=== PATIENT | male | born 1935 | race Caucasian/White ===

== ENCOUNTER → 2016-08-19 | Day surgery (SDC) | payer MEDICARE, BC, OTHER ==
[~2016-08-19] VITALS: Ht 165.1 cm; Wt 94.3 kg
[~2016-08-19] MED LIST: /ALEN70TA; /BACIOPOI TOP; /PANT40TA PO; ACET500C OR; ACETAMINOPHEN 325 MG TAB PO PRN; ACETYLCHOLINE OPHTH SOLN 1% 2ML (MIOCHOL-E) As Ordered ONE; ARTH650T17 PO; ARTHRITIS PAIN REL PO; ASPI81CH PO; ASPI81TA83 PO; ATEN25TA OR; ATEN25TA PO; ATOR1TAB19 PO; AcetaZOLAMIDE 500 MG ER CAP PO ONE; BABY81CH OR; BACT800T; BSS with VANC/TOB/EPI for EYE CASES IR ONE; CALC12502 OR; CALCTAB28 PO; CEFT250T OR; CEFT2ADD IV; CEFUROXIME 1MG/0.1ML INTRACAMERAL INJ As Ordered ONE; CIPRO PO; CLOP75TA2 PO; COLA100C2 OR; CYCLOPENTOLATE 2% OPHTH SOLN 2ML BTL As Ordered ONE; CYCLOPENTOLATE 2% OPHTH SOLN 2ML BTL OD ONE; D5W/0.2% SODIUM CHLORIDE 250 ML IV ONE; FERR325T OR; FURO20TA2 OR; FURO20TA2 PO; GLIP5TAB2 OR; GLIP5TAB2 PO; GLUC1CAP9 PO; GLUCOSAMINE/CHRONDIT; HEALON DUET (HEALON 10MG/ML 0.55ML & HEALON ENDOCOAT 30MG/ML 0.85ML) As Ordered ONE; HYDROXYCHLOROQUINE PO; INSULADS INJ; INSULANT SC; INSUR SC; KETO2AER2 EX; KETOROLAC 0.5% OPHTH SOLN OD ONE; LASI20TA PO; LIDOCAINE 1% SDV 5 ML VIAL As Ordered ONE; LIDOCAINE 4% INJ 5 ML AMP OU ONE; LIDOCAINE W/EPINEPHRINE 1% 20ML VIAL As Ordered ONE; LIPI10TA; LISI-542 PO; LISI5TAB OR; MAGN400C PO; METF500T4 OR; METO10TA2 PO; METO5TAB2 OR; MIDAZOLAM INJ 2 MG/2 ML VIAL (J2250) As Ordered ONE; MOXIFLOXACIN IN BSS 0.25MG/0.25ML INTRACAMERAL INJ (OR EYE ONLY)(J2280) As Ordered ONE; NEUR300C PO; OFLOXACIN 0.3 % (OCUFLOX) OPTH SOL 5ML As Ordered ONE; OFLOXACIN 0.3 % (OCUFLOX) OPTH SOL 5ML OD ONE; OSCAL PLUS D PO; PERC5TAB8; PERC5TAB8 OR; PHENYLEPHRINE 2.5% OPHTH SOL 2ML As Ordered ONE; PHENYLEPHRINE 2.5% OPHTH SOL 2ML OD ONE; PICC LINE FLUSHES IV; PLAQUENIL PO; POTA10CA; POVIDONE-IODINE 5% OPHTH PREP SOL 30ML As Ordered ONE; PRED10TA2 OR; PRED20TA OR; PRED25TA PO; PRED5TAB; PRED5TAB OR; PRED5TAB PO; PREDNISOLINE PO; PROPARACAINE 0.5% OPHTH SOL 15ML OD PRN; RANI300T PO; RANITAB PO; RANITIDINE PO; REFR1DRO8 OP; SENO8.6T5 OR; Silvadene; TRAM50TA2 OR; TRIAMCINOLONE PRES FR 40 MG/ML 1ML(TRIESENCE)(OR EYE ONLY)(J3300 PER 1MG) As Ordered ONE; TRIMETHOBENZAMIDE 300 MG CAP PO PRN; TROPICAMIDE 1% OPHTH SOLN 2ML As Ordered ONE; TROPICAMIDE 1% OPHTH SOLN 2ML OD ONE; VICO5TAB OR; VISI1CAP PO; VISITAB5; VISITAB5 PO; VITA100072 PO; VITA400C PO; VITA400C29 PO; VITA400C35 PO; VITA500C OR; VITA500C3 PO; VITA500T; VITA500T OR; VITAMIN D50000 UNT; VITAMIN D50000 UNT OR; [UNRECOGNIZED DRUG - OTHER] IV; fentaNYL 100 MCG/2 ML INJECTION (J3010) As Ordered ONE; prednisone OR
[2016-08-19 10:00] VITALS: BP 153/67
== END | disposition home or self-care (01) ==
LOC: M SDC 06:33
PROVIDERS: ATTEND Ophthalmology
DX: H26.9 Unspecified cataract (principal); I10 Essential (primary) hypertension; E78.5 Hyperlipidemia, unspecified; K21.9 Gastro-esophageal reflux disease without esophagitis; E11.9 Type 2 diabetes mellitus without complications; Z79.4 Long term (current) use of insulin; G47.30 Sleep apnea, unspecified; I73.9 Peripheral vascular disease, unspecified; Z88.0 Allergy status to penicillin; Z79.899 Other long term (current) drug therapy; Z87.891 Personal history of nicotine dependence
CPT/HCPCS: 66984; 67515; J2250; J2280; J3010; J3300; V2632

== ENCOUNTER → 2016-12-30 | Outpatient (REF) | payer MEDICARE, OTHER ==
[~2016-12-30] MED LIST changes: -ACETAMINOPHEN 325 MG TAB PO PRN; -ACETYLCHOLINE OPHTH SOLN 1% 2ML (MIOCHOL-E) As Ordered ONE; -AcetaZOLAMIDE 500 MG ER CAP PO ONE; -BSS with VANC/TOB/EPI for EYE CASES IR ONE; -CEFUROXIME 1MG/0.1ML INTRACAMERAL INJ As Ordered ONE; -CYCLOPENTOLATE 2% OPHTH SOLN 2ML BTL As Ordered ONE; -CYCLOPENTOLATE 2% OPHTH SOLN 2ML BTL OD ONE; -D5W/0.2% SODIUM CHLORIDE 250 ML IV ONE; -HEALON DUET (HEALON 10MG/ML 0.55ML & HEALON ENDOCOAT 30MG/ML 0.85ML) As Ordered ONE; -KETOROLAC 0.5% OPHTH SOLN OD ONE; -LIDOCAINE 1% SDV 5 ML VIAL As Ordered ONE; -LIDOCAINE 4% INJ 5 ML AMP OU ONE; -LIDOCAINE W/EPINEPHRINE 1% 20ML VIAL As Ordered ONE; -MIDAZOLAM INJ 2 MG/2 ML VIAL (J2250) As Ordered ONE; -MOXIFLOXACIN IN BSS 0.25MG/0.25ML INTRACAMERAL INJ (OR EYE ONLY)(J2280) As Ordered ONE; -OFLOXACIN 0.3 % (OCUFLOX) OPTH SOL 5ML As Ordered ONE; -OFLOXACIN 0.3 % (OCUFLOX) OPTH SOL 5ML OD ONE; -PHENYLEPHRINE 2.5% OPHTH SOL 2ML As Ordered ONE; -PHENYLEPHRINE 2.5% OPHTH SOL 2ML OD ONE; -POVIDONE-IODINE 5% OPHTH PREP SOL 30ML As Ordered ONE; -PROPARACAINE 0.5% OPHTH SOL 15ML OD PRN; -TRIAMCINOLONE PRES FR 40 MG/ML 1ML(TRIESENCE)(OR EYE ONLY)(J3300 PER 1MG) As Ordered ONE; -TRIMETHOBENZAMIDE 300 MG CAP PO PRN; -TROPICAMIDE 1% OPHTH SOLN 2ML As Ordered ONE; -TROPICAMIDE 1% OPHTH SOLN 2ML OD ONE; +VITA-110 PO; -VITA400C29 PO; -fentaNYL 100 MCG/2 ML INJECTION (J3010) As Ordered ONE
== END ==
LOC: M LAB REF 17:47
PROVIDERS: ATTEND Surgery
DX: D04.62 Carcinoma in situ of skin of left upper limb, including shoulder (principal); D48.5 Neoplasm of uncertain behavior of skin

== ENCOUNTER 2017-12-03 16:59 | Inpatient (IN) | payer MEDICARE, BC, OTHER ==
[2017-12-03 16:21] LABS: BASO # 0.1 10^3/uL (0.0-0.2); BASO % 0.3 % (0.0-1.0); EOS % 0.2 % (0.0-3.0); HEMOGLOBIN 12.6 g/dl (13.5-17.5); IMMATURE GRANULOCYTE % 1.1 % (0-3.0); LYMPH # 0.7 10^3/uL (1.5-4.5); LYMPH % 3.4 % (24.0-44.0); MEAN CORPUSCULAR HEMOGLOBIN 32.3 pg (27.0-33.0); MEAN CORPUSCULAR HGB CONC 33.2 g/dl (32.0-36.5); MEAN CORPUSCULAR VOLUME 97.4 fl (80.0-96.0); MONO # 1.7 10^3/uL (0.0-0.8); MONO % 8.4 % (0.0-5.0); NEUTROPHILS % 86.6 % (36.0-66.0); PLATELET COUNT, AUTOMATED 211 10^3/uL (150-450); RED CELL DISTRIBUTION WIDTH 14.5 % (11.5-14.5); WHITE BLOOD COUNT 19.7 10^3/uL (4.0-10.0)
[2017-12-03 16:25] LABS: INR 0.92; PARTIAL THROMBOPLASTIN TIME 27.5 SECONDS (25.4-37.6); PROTHROMBIN TIME 12.5 SECONDS (12.1-14.4)
[2017-12-03 16:27] LABS: ABG BASE EXCESS -1.1 (-2.0-2.0); ABG HCO3 23.3 MEQ/L (22.0-26.0); ABG O2 SATURATION 98.8 % (95.0-99.0); ABG PARTIAL PRESSURE CO2 37.7 mmHg (35.0-45.0); ABG PARTIAL PRESSURE O2 134.9 mmHg (75.0-100.0); ABG STANDARD HCO3 23.6 MEQ/L (22.0-26.0); ABG TOTAL CO2 24.4 MEQ/L (23.0-31.0); ABG pH (ARTERIAL) 7.408 UNITS (7.350-7.450)
[2017-12-03] MEDS: HYDROCORTISONE 100 MG/2 ML VIAL (J1720) IV (16:38)
[2017-12-03] MEDS: NS 1,000 ML IV ×4 (16:39→20:54)
[2017-12-03 16:40] LABS: ALBUMIN/GLOBULIN RATIO 1.25 (1.00-1.93); ALKALINE PHOSPHATASE 59 U/L (45-117); ALT/SGPT 31 U/L (12-78); AMYLASE 63 U/L (25-115); ANION GAP 10 MEQ/L (8-16); AST/SGOT 15 U/L (7-37); BILIRUBIN,DIRECT 0.2 MG/DL (0.0-0.2); BILIRUBIN,TOTAL 0.6 MG/DL (0.2-1.0); BLOOD UREA NITROGEN 33 MG/DL (7-18); C REACTIVE PROTEIN QUANTITATIV 3.66 MG/DL (0.00-0.30); CALCIUM LEVEL 9.7 MG/DL (8.8-10.2); CARBON DIOXIDE LEVEL 26 MEQ/L (21-32); CHLORIDE LEVEL 100 MEQ/L (98-107); CPK CREATINE PHOSPHOKINASE 90 U/L (39-308); CREATININE FOR GFR 1.83 MG/DL (0.70-1.30); GLOMERULAR FILTRATION RATE 37.8 (>35); GLUCOSE, FASTING 181 MG/DL (70-100); LIPASE 251 U/L (73-393); MB/CK RELATIVE INDEX 1.89 (< OR =4); POTASSIUM SERUM 3.9 MEQ/L (3.5-5.1); SODIUM LEVEL 136 MEQ/L (136-145); TOTAL PROTEIN 7.2 GM/DL (6.4-8.2); TROPONIN I < 0.02 NG/ML (< 0.10)
[2017-12-03] MEDS: cefTRIAXone SOD 2 GM in D5W MINI-BAG PLUS 50 ML IV (17:51)
[2017-12-03 18:34] LABS: AMORPHOUS SEDIMENT RFX SMALL (NEGATIVE); KETONE, URINE AUTO RFX NEGATIVE (NEGATIVE); MUCUS, URINE RFX SMALL (NEGATIVE); NITRITE, URINE AUTO RFX NEGATIVE (NEGATIVE); RBC, URINE AUTO RFX 4 /HPF (0-3); SPECIFIC GRAVITY UR AUTO RFX 1.013 (1.002-1.035); SQUAM EPITHELIAL CELL UR AURFX 0 /HPF (0-6)
[2017-12-03 18:38] LABS: LEUKOCYTE ESTERASE UR AUTO RFX 3+ (NEGATIVE); WBC, URINE AUTO RFX 101 /HPF (0-3)
[2017-12-03] MEDS: GABAPENTIN 300 MG CAP PO (21:00)
[2017-12-03] MEDS: ATORVASTATIN 10 MG TAB PO (21:00)
[2017-12-03] MEDS: CLOPIDOGREL 75 MG TAB PO (21:00)
[2017-12-03] MEDS: ASPIRIN 81 MG ENTERIC TAB PO (21:00)
[2017-12-03] MEDS: MAGNESIUM OXIDE 400 MG TAB (MAG-OX) PO (21:00)
[2017-12-03] MEDS ORDERED: DEXTROSE 50% 50 ML SYRINGE IV (21:15)
[2017-12-03] MEDS ORDERED: GLUCOSE 4 GM CHEW TABLET PO (21:15)
[2017-12-03] MEDS ORDERED: GLUCAGON FOR INJ 1 MG VIAL (J1610) SC (21:15)
[2017-12-03] MEDS: HEPARIN SOD (PORCINE) 5000 UNITS/ML VIAL SC (22:00)
[2017-12-04] MEDS: HYDROCORTISONE 100 MG/2 ML VIAL (J1720) IV ×3 (05:01→17:37)
[2017-12-04 06:10] LABS: MEAN CORPUSCULAR HEMOGLOBIN 32.2 pg (27.0-33.0); MEAN CORPUSCULAR HGB CONC 32.3 g/dl (32.0-36.5); MEAN CORPUSCULAR VOLUME 99.7 fl (80.0-96.0); PLATELET COUNT, AUTOMATED 164 10^3/uL (150-450); RED BLOOD COUNT 3.11 10^6/uL (4.30-6.10); RED CELL DISTRIBUTION WIDTH 14.6 % (11.5-14.5); WHITE BLOOD COUNT 20.5 10^3/uL (4.0-10.0)
[2017-12-04 06:39] LABS: ANION GAP 6 MEQ/L (8-16); BLOOD UREA NITROGEN 33 MG/DL (7-18); CALCIUM LEVEL 8.2 MG/DL (8.8-10.2); CARBON DIOXIDE LEVEL 24 MEQ/L (21-32); CHLORIDE LEVEL 110 MEQ/L (98-107); CREATININE FOR GFR 1.57 MG/DL (0.70-1.30); GLOMERULAR FILTRATION RATE 45.1 (>35); GLUCOSE, FASTING 126 MG/DL (70-100); POTASSIUM SERUM 4.7 MEQ/L (3.5-5.1); SODIUM LEVEL 140 MEQ/L (136-145)
[2017-12-04] MEDS: HEPARIN SOD (PORCINE) 5000 UNITS/ML VIAL SC ×3 (06:47→20:35)
[2017-12-04] MEDS: NS 1,000 ML IV ×2 (06:54→16:03)
[2017-12-04] MEDS: LEVEMIR (INSULIN DETEMIR) 1 UNITS/0.01ML SC (09:09)
[2017-12-04] MEDS: HumaLOG INSULIN (NovoLOG) PER UNIT SC ×3 (09:09→17:30)
[2017-12-04] MEDS: FAMOTIDINE 20 MG TAB PO ×2 (09:10→20:35)
[2017-12-04] MEDS: GABAPENTIN 300 MG CAP PO ×3 (09:10→20:35)
[2017-12-04] MEDS: OCUVITE 1 TAB PO (09:10)
[2017-12-04] MEDS: ASCORBIC ACID 500 MG TAB PO (09:10)
[2017-12-04] MEDS: ACETAMINOPHEN TAB 650MG DOSE (2X325MG) PO ×2 (09:10→20:36)
[2017-12-04] MEDS: CYANOCOBALAMIN 500 MCG TAB PO (09:10)
[2017-12-04] MEDS: VITAMIN E 400 INTERNATIONAL UNITS CAP PO (09:10)
[2017-12-04 10:58] LABS: LACTIC ACID SEPSIS PROTOCOL 1.8 MMOL/L (0.4-2.0)
[2017-12-04 12:08] LABS: BEDSIDE GLUCOSE 135 MG/DL (83-110)
[2017-12-04 16:53] LABS: BEDSIDE GLUCOSE 195 MG/DL (83-110)
[2017-12-04] MEDS: cefTRIAXone SOD 1 GM in D5W MINI-BAG PLUS 50 ML IV (17:37)
[2017-12-04] MEDS: CLOPIDOGREL 75 MG TAB PO (20:35)
[2017-12-04] MEDS: ASPIRIN 81 MG ENTERIC TAB PO (20:35)
[2017-12-04] MEDS: ATORVASTATIN 10 MG TAB PO (20:36)
[2017-12-04] MEDS: MAGNESIUM OXIDE 400 MG TAB (MAG-OX) PO (20:36)
[2017-12-05] MEDS: HYDROCORTISONE 100 MG/2 ML VIAL (J1720) IV ×3 (00:19→17:03)
[2017-12-05 05:56] LABS: HEMATOCRIT 28.7 % (42.0-52.0); HEMOGLOBIN 9.4 g/dl (13.5-17.5); MEAN CORPUSCULAR HEMOGLOBIN 32.3 pg (27.0-33.0); MEAN CORPUSCULAR HGB CONC 32.8 g/dl (32.0-36.5); MEAN CORPUSCULAR VOLUME 98.6 fl (80.0-96.0); PLATELET COUNT, AUTOMATED 152 10^3/uL (150-450); RED BLOOD COUNT 2.91 10^6/uL (4.30-6.10); RED CELL DISTRIBUTION WIDTH 14.6 % (11.5-14.5); WHITE BLOOD COUNT 15.7 10^3/uL (4.0-10.0)
[2017-12-05] MEDS: HEPARIN SOD (PORCINE) 5000 UNITS/ML VIAL SC ×3 (05:58→21:53)
[2017-12-05 06:38] LABS: ANION GAP 7 MEQ/L (8-16); BLOOD UREA NITROGEN 36 MG/DL (7-18); CALCIUM LEVEL 7.8 MG/DL (8.8-10.2); CARBON DIOXIDE LEVEL 22 MEQ/L (21-32); CHLORIDE LEVEL 111 MEQ/L (98-107); GLOMERULAR FILTRATION RATE 56.1 (>35); GLUCOSE, FASTING 207 MG/DL (70-100); POTASSIUM SERUM 4.2 MEQ/L (3.5-5.1); SODIUM LEVEL 140 MEQ/L (136-145)
[2017-12-05] MEDS: VITAMIN E 400 INTERNATIONAL UNITS CAP PO (09:14)
[2017-12-05] MEDS: OCUVITE 1 TAB PO (09:14)
[2017-12-05] MEDS: HumaLOG INSULIN (NovoLOG) PER UNIT SC ×3 (09:14→17:04)
[2017-12-05] MEDS: LEVEMIR (INSULIN DETEMIR) 1 UNITS/0.01ML SC (09:14)
[2017-12-05] MEDS: FAMOTIDINE 20 MG TAB PO ×2 (09:15→21:52)
[2017-12-05] MEDS: CYANOCOBALAMIN 500 MCG TAB PO (09:15)
[2017-12-05] MEDS: ASCORBIC ACID 500 MG TAB PO (09:15)
[2017-12-05] MEDS: GABAPENTIN 300 MG CAP PO ×3 (09:15→21:52)
[2017-12-05 11:53] LABS: BEDSIDE GLUCOSE 245 MG/DL (83-110)
[2017-12-05] MEDS: INFLUENZA VIRUS VACCINE HIGH DOSE 0.5 ML SYRINGE (90662) IM (12:00)
[2017-12-05 16:51] LABS: BEDSIDE GLUCOSE 291 MG/DL (83-110)
[2017-12-05] MEDS: cefTRIAXone SOD 1 GM in D5W MINI-BAG PLUS 50 ML IV (17:04)
[2017-12-05] MEDS: ASPIRIN 81 MG ENTERIC TAB PO (21:51)
[2017-12-05] MEDS: ATORVASTATIN 10 MG TAB PO (21:51)
[2017-12-05] MEDS: ACETAMINOPHEN TAB 650MG DOSE (2X325MG) PO (21:51)
[2017-12-05] MEDS: MAGNESIUM OXIDE 400 MG TAB (MAG-OX) PO (21:52)
[2017-12-05] MEDS: CLOPIDOGREL 75 MG TAB PO (21:52)
[2017-12-06] MEDS: HYDROCORTISONE 100 MG/2 ML VIAL (J1720) IV ×3 (01:10→16:30)
[2017-12-06] MEDS: HEPARIN SOD (PORCINE) 5000 UNITS/ML VIAL SC ×3 (05:24→22:14)
[2017-12-06 07:16] LABS: BEDSIDE GLUCOSE 239 MG/DL (83-110)
[2017-12-06 07:24] LABS: HEMATOCRIT 29.8 % (42.0-52.0); HEMOGLOBIN 9.8 g/dl (13.5-17.5); MEAN CORPUSCULAR HEMOGLOBIN 32.1 pg (27.0-33.0); MEAN CORPUSCULAR HGB CONC 32.9 g/dl (32.0-36.5); MEAN CORPUSCULAR VOLUME 97.7 fl (80.0-96.0); PLATELET COUNT, AUTOMATED 162 10^3/uL (150-450); RED BLOOD COUNT 3.05 10^6/uL (4.30-6.10); RED CELL DISTRIBUTION WIDTH 14.6 % (11.5-14.5)
[2017-12-06 07:47] LABS: ANION GAP 11 MEQ/L (8-16); BLOOD UREA NITROGEN 35 MG/DL (7-18); CALCIUM LEVEL 8.2 MG/DL (8.8-10.2); CARBON DIOXIDE LEVEL 20 MEQ/L (21-32); CHLORIDE LEVEL 107 MEQ/L (98-107); CREATININE FOR GFR 1.19 MG/DL (0.70-1.30); GLOMERULAR FILTRATION RATE > 60.0 (>35); GLUCOSE, FASTING 226 MG/DL (70-100); POTASSIUM SERUM 4.1 MEQ/L (3.5-5.1); SODIUM LEVEL 138 MEQ/L (136-145)
[2017-12-06] MEDS: HumaLOG INSULIN (NovoLOG) PER UNIT SC ×3 (09:11→18:11)
[2017-12-06] MEDS: GABAPENTIN 300 MG CAP PO ×3 (09:12→22:13)
[2017-12-06] MEDS: LEVEMIR (INSULIN DETEMIR) 1 UNITS/0.01ML SC (09:12)
[2017-12-06] MEDS: OCUVITE 1 TAB PO (09:12)
[2017-12-06] MEDS: ASCORBIC ACID 500 MG TAB PO (09:12)
[2017-12-06] MEDS: VITAMIN E 400 INTERNATIONAL UNITS CAP PO (09:12)
[2017-12-06] MEDS: FAMOTIDINE 20 MG TAB PO ×2 (09:13→22:13)
[2017-12-06] MEDS: CYANOCOBALAMIN 500 MCG TAB PO (09:13)
[2017-12-06 11:35] LABS: BEDSIDE GLUCOSE 246 MG/DL (83-110)
[2017-12-06 16:30] LABS: BEDSIDE GLUCOSE 230 MG/DL (83-110)
[2017-12-06] MEDS: cefTRIAXone SOD 1 GM in D5W MINI-BAG PLUS 50 ML IV (18:11)
[2017-12-06 20:00] LABS: BEDSIDE GLUCOSE 278 MG/DL (83-110)
[2017-12-06] MEDS: ASPIRIN 81 MG ENTERIC TAB PO (22:13)
[2017-12-06] MEDS: MAGNESIUM OXIDE 400 MG TAB (MAG-OX) PO (22:13)
[2017-12-06] MEDS: ACETAMINOPHEN TAB 650MG DOSE (2X325MG) PO (22:13)
[2017-12-06] MEDS: predniSONE 2.5 MG TAB PO (22:13)
[2017-12-06] MEDS: CLOPIDOGREL 75 MG TAB PO (22:14)
[2017-12-06] MEDS: ATORVASTATIN 10 MG TAB PO (22:14)
[2017-12-07 05:32] LABS: BEDSIDE GLUCOSE 220 MG/DL (83-110)
[2017-12-07] MEDS: HEPARIN SOD (PORCINE) 5000 UNITS/ML VIAL SC (05:38)
[2017-12-07 07:10] LABS: HEMATOCRIT 29.8 % (42.0-52.0); HEMOGLOBIN 10.1 g/dl (13.5-17.5); MEAN CORPUSCULAR HEMOGLOBIN 32.5 pg (27.0-33.0); MEAN CORPUSCULAR HGB CONC 33.9 g/dl (32.0-36.5); MEAN CORPUSCULAR VOLUME 95.8 fl (80.0-96.0); PLATELET COUNT, AUTOMATED 176 10^3/uL (150-450); RED BLOOD COUNT 3.11 10^6/uL (4.30-6.10); RED CELL DISTRIBUTION WIDTH 14.4 % (11.5-14.5); WHITE BLOOD COUNT 9.3 10^3/uL (4.0-10.0)
[2017-12-07 08:05] LABS: ANION GAP 14 MEQ/L (8-16); BLOOD UREA NITROGEN 32 MG/DL (7-18); C REACTIVE PROTEIN QUANTITATIV 5.05 MG/DL (0.00-0.30); CALCIUM LEVEL 7.9 MG/DL (8.8-10.2); CARBON DIOXIDE LEVEL 20 MEQ/L (21-32); CHLORIDE LEVEL 107 MEQ/L (98-107); CREATININE FOR GFR 1.12 MG/DL (0.70-1.30); GLOMERULAR FILTRATION RATE > 60.0 (>35); GLUCOSE, FASTING 191 MG/DL (70-100); SODIUM LEVEL 141 MEQ/L (136-145)
[2017-12-07] MEDS: LEVEMIR (INSULIN DETEMIR) 1 UNITS/0.01ML SC (09:09)
[2017-12-07] MEDS: HumaLOG INSULIN (NovoLOG) PER UNIT SC ×2 (09:10→12:16)
[2017-12-07] MEDS: FAMOTIDINE 20 MG TAB PO (09:11)
[2017-12-07] MEDS: predniSONE 2.5 MG TAB PO (09:11)
[2017-12-07] MEDS: ASCORBIC ACID 500 MG TAB PO (09:11)
[2017-12-07] MEDS: OCUVITE 1 TAB PO (09:11)
[2017-12-07] MEDS: GABAPENTIN 300 MG CAP PO ×2 (09:11→12:15)
[2017-12-07] MEDS: CYANOCOBALAMIN 500 MCG TAB PO (09:11)
[2017-12-07] MEDS: VITAMIN E 400 INTERNATIONAL UNITS CAP PO (09:11)
== END 2017-12-07 12:14 | disposition home or self-care (01) | DRG 872 ==
LOC: M PCU 12-04 02:07 → M MS4PR 12-05 17:45 → M ED 16:59 → M ED INP 20:54
DX: A41.9 Sepsis, unspecified organism (principal); N39.0 Urinary tract infection, site not specified; N17.9 Acute kidney failure, unspecified; R65.20 Severe sepsis without septic shock; I10 Essential (primary) hypertension; G47.33 Obstructive sleep apnea (adult) (pediatric); E78.5 Hyperlipidemia, unspecified; Z66 Do not resuscitate; E11.51 Type 2 diabetes mellitus with diabetic peripheral angiopathy without gangrene; M06.9 Rheumatoid arthritis, unspecified; Z79.899 Other long term (current) drug therapy; Z79.82 Long term (current) use of aspirin; Z79.52 Long term (current) use of systemic steroids; Z88.0 Allergy status to penicillin; Z88.1 Allergy status to other antibiotic agents; K21.9 Gastro-esophageal reflux disease without esophagitis; Z79.4 Long term (current) use of insulin

== ENCOUNTER 2017-12-27 09:58 | Inpatient (IN) | payer MEDICARE, BC, OTHER ==
[2017-12-27] MEDS: VITAMIN E 400 INTERNATIONAL UNITS CAP PO (09:00)
[2017-12-27] MEDS: ACETAMINOPHEN TAB 650MG DOSE (2X325MG) PO ×2 (10:26→14:50)
[2017-12-27] MEDS: NS 1,000 ML IV ×4 (10:30→21:35)
[2017-12-27 11:05] LABS: BASO % 0.2 % (0.0-1.0); EOS # 0.1 10^3/uL (0.0-0.50); EOS % 0.5 % (0.0-3.0); HEMATOCRIT 35.4 % (42.0-52.0); HEMOGLOBIN 11.5 g/dl (13.5-17.5); IMMATURE GRANULOCYTE % 0.9 % (0-3.0); LYMPH % 6.7 % (24.0-44.0); MEAN CORPUSCULAR HEMOGLOBIN 31.7 pg (27.0-33.0); MEAN CORPUSCULAR HGB CONC 32.5 g/dl (32.0-36.5); MEAN CORPUSCULAR VOLUME 97.5 fl (80.0-96.0); MONO # 1.7 10^3/uL (0.0-0.8); MONO % 11.5 % (0.0-5.0); NEUTROPHILS % 80.2 % (36.0-66.0); PLATELET COUNT, AUTOMATED 207 10^3/uL (150-450); RED BLOOD COUNT 3.63 10^6/uL (4.30-6.10); RED CELL DISTRIBUTION WIDTH 14.7 % (11.5-14.5); WHITE BLOOD COUNT 14.9 10^3/uL (4.0-10.0)
[2017-12-27 11:21] LABS: INR 1.06; PROTHROMBIN TIME 13.9 SECONDS (12.1-14.4)
[2017-12-27 11:22] LABS: PARTIAL THROMBOPLASTIN TIME 30.3 SECONDS (25.4-37.6)
[2017-12-27 11:35] LABS: ALBUMIN 3.4 GM/DL (3.2-5.2); ALBUMIN/GLOBULIN RATIO 0.97 (1.00-1.93); ALKALINE PHOSPHATASE 60 U/L (45-117); ALT/SGPT 26 U/L (12-78); ANION GAP 9 MEQ/L (8-16); AST/SGOT 16 U/L (7-37); BILIRUBIN,DIRECT 0.2 MG/DL (0.0-0.2); BILIRUBIN,TOTAL 0.6 MG/DL (0.2-1.0); BLOOD UREA NITROGEN 36 MG/DL (7-18); CARBON DIOXIDE LEVEL 27 MEQ/L (21-32); CHLORIDE LEVEL 101 MEQ/L (98-107); CREATININE FOR GFR 1.77 MG/DL (0.70-1.30); GLOMERULAR FILTRATION RATE 39.3 (>35); GLUCOSE, FASTING 167 MG/DL (70-100); POTASSIUM SERUM 4.6 MEQ/L (3.5-5.1); SODIUM LEVEL 137 MEQ/L (136-145); TOTAL PROTEIN 6.9 GM/DL (6.4-8.2)
[2017-12-27 11:40] LABS: LACTIC ACID SEPSIS PROTOCOL 2.1 MMOL/L (0.4-2.0)
[2017-12-27] MEDS: NS IV (12:01)
[2017-12-27] MEDS: DILUENT IV (12:01)
[2017-12-27] MEDS: MORPHINE 2 MG/ML 1ML SYRINGE (J2270) IV (12:02)
[2017-12-27 12:54] LABS: AMORPHOUS SEDIMENT SMALL (NEGATIVE); APPEARANCE, URINE CLOUDY (CLEAR); BACTERIA, URINE AUTO 2+ (NEGATIVE); BILIRUBIN, URINE AUTO NEGATIVE (NEGATIVE); BLOOD, URINE BLOOD 1+ (NEGATIVE); COLOR, URINE YELLOW (YELLOW); GLUCOSE, URINE (UA) AUTO NEGATIVE (NEGATIVE); KETONE, URINE AUTO NEGATIVE (NEGATIVE); LEUKOCYTE ESTERASE, URINE AUTO 3+ (NEGATIVE); MUCUS, URINE SMALL (NEGATIVE); NITRITE, URINE AUTO POSITIVE (NEGATIVE); PROTEIN, URINE AUTO 1+ mg/dL (NEGATIVE); RBC, URINE AUTO 5 /HPF (0-3); SPECIFIC GRAVITY URINE AUTO 1.013 (1.002-1.035); SQUAMOUS EPITHELIAL CELL UR AU 0 /HPF (0-6); UROBILINOGEN, URINE AUTO 0.2 mg/dL (0.0-2.0); WBC, URINE AUTO TNTC /HPF (0-3)
[2017-12-27] MEDS ORDERED: ONDANSETRON 4MG/2ML VIAL (J2405) IV (13:15)
[2017-12-27] MEDS ORDERED: BISACODYL 5 MG TAB PO (13:15)
[2017-12-27] MEDS: LevoFLOXacin IV 500 MG in APPROPRIATE DILUENT 1 EA IV (13:57)
[2017-12-27] MEDS ORDERED: GLUCOSE 4 GM CHEW TABLET PO (14:15)
[2017-12-27] MEDS ORDERED: DEXTROSE 50% 50 ML SYRINGE IV (14:15)
[2017-12-27] MEDS ORDERED: GLUCAGON FOR INJ 1 MG VIAL (J1610) SC (14:15)
[2017-12-27 14:44] LABS: CPK CREATINE PHOSPHOKINASE 97 U/L (39-308); MB/CK RELATIVE INDEX 1.65 (< OR =4); TROPONIN I < 0.02 NG/ML (< 0.10)
[2017-12-27] MEDS: OCUVITE 1 TAB PO (14:50)
[2017-12-27] MEDS: CYANOCOBALAMIN 500 MCG TAB PO (14:51)
[2017-12-27] MEDS: ATENOLOL 25 MG TAB PO (14:51)
[2017-12-27] MEDS: HYDROCORTISONE 100 MG/2 ML VIAL (J1720) IV ×2 (14:52→21:35)
[2017-12-27 16:25] LABS: BEDSIDE GLUCOSE 188 MG/DL (83-110)
[2017-12-27] MEDS: ASCORBIC ACID 250 MG TAB PO ×2 (17:30→21:34)
[2017-12-27] MEDS: HumaLOG INSULIN (NovoLOG) PER UNIT SC ×2 (17:31→21:00)
[2017-12-27] MEDS: DEXTRAN/HYPROMELLOSE OPHTH SOLN 15 ML(GENTEAL TEARS) OU ×2 (17:31→21:33)
[2017-12-27] MEDS: LACTOBACILLUS ACIDOPHILUS CAP (BACID) PO (17:31)
[2017-12-27 18:50] LABS: ANION GAP 8 MEQ/L (8-16); BLOOD UREA NITROGEN 36 MG/DL (7-18); CALCIUM LEVEL 8.4 MG/DL (8.8-10.2); CARBON DIOXIDE LEVEL 23 MEQ/L (21-32); CHLORIDE LEVEL 107 MEQ/L (98-107); CREATININE FOR GFR 1.68 MG/DL (0.70-1.30); GLOMERULAR FILTRATION RATE 41.7 (>35); GLUCOSE, FASTING 228 MG/DL (70-100); POTASSIUM SERUM 4.8 MEQ/L (3.5-5.1); SODIUM LEVEL 138 MEQ/L (136-145)
[2017-12-27 20:23] LABS: BEDSIDE GLUCOSE 238 MG/DL (83-110)
[2017-12-27] MEDS: predniSONE 2.5 MG TAB PO (21:33)
[2017-12-27] MEDS: LEVEMIR (INSULIN DETEMIR) 1 UNITS/0.01ML SC (21:33)
[2017-12-27] MEDS: MAGNESIUM OXIDE 400 MG TAB (MAG-OX) PO (21:34)
[2017-12-27] MEDS: CLOPIDOGREL 75 MG TAB PO (21:34)
[2017-12-27] MEDS: ATORVASTATIN 10 MG TAB PO (21:34)
[2017-12-27] MEDS: ASPIRIN 81 MG ENTERIC TAB PO (21:34)
[2017-12-28] MEDS: HYDROCORTISONE 100 MG/2 ML VIAL (J1720) IV ×3 (05:44→22:02)
[2017-12-28 06:31] LABS: HEMATOCRIT 27.4 % (42.0-52.0); MEAN CORPUSCULAR HEMOGLOBIN 32.1 pg (27.0-33.0); MEAN CORPUSCULAR HGB CONC 32.8 g/dl (32.0-36.5); MEAN CORPUSCULAR VOLUME 97.9 fl (80.0-96.0); PLATELET COUNT, AUTOMATED 170 10^3/uL (150-450); RED CELL DISTRIBUTION WIDTH 14.7 % (11.5-14.5); RETIC HEMOGLOBIN EQUIVALENT 33.1 pg (24-36); RETICULOCYTE # 47.3 10^9/L (17-77); RETICULOCYTE % 1.7 % (0.5-1.5); WHITE BLOOD COUNT 11.6 10^3/uL (4.0-10.0)
[2017-12-28 06:43] LABS: REASON FOR REVIEW RBC MORPHOLOGY; SLIDE REVIEW Report; SOURCE PERIPHERAL SMEAR
[2017-12-28 06:46] LABS: ESTIMATED AVERAGE GLUCOSE 166 MG/DL (60-110); HEMOGLOBIN A1c 7.4 %
[2017-12-28 07:46] LABS: ANION GAP 7 MEQ/L (8-16); BLOOD UREA NITROGEN 32 MG/DL (7-18); CALCIUM LEVEL 8.1 MG/DL (8.8-10.2); CARBON DIOXIDE LEVEL 25 MEQ/L (21-32); CHLORIDE LEVEL 107 MEQ/L (98-107); CHOLESTEROL LEVEL 87 MG/DL (<200); CHOLESTEROL RISK RATIO 2.175 (<5); CREATININE FOR GFR 1.43 MG/DL (0.70-1.30); FERRITIN 220 NG/ML (26-388); FREE THYROXINE INDEX 1.6 % (1.4-3.8); GLOMERULAR FILTRATION RATE 50.3 (>35); GLUCOSE, FASTING 203 MG/DL (70-100); HDL CHOLESTEROL 40 MG/DL (>40); IRON (FE) 21 UG/DL (65-175); LDL CHOLESTEROL 27 MG/DL (<100); NON-HDL-C 47 MG/DL; PERCENT SATURATION 10.6 % (19.7-50.0); POTASSIUM SERUM 4.5 MEQ/L (3.5-5.1); PSA SCREENING 1.07 NG/ML (< 4.0); SODIUM LEVEL 139 MEQ/L (136-145); T UPTAKE 37 % (33-40); THYROID STIMULATING HORMONE 0.336 uIU/ML (0.358-3.740); THYROXINE (T4) 4.2 UG/DL (4.5-12.0); TOTAL IRON BINDING CAPACITY 198 UG/DL (250-450); TOTAL PROTEIN 5.5 GM/DL (6.4-8.2); TRIGLYCERIDES LEVEL 98 MG/DL (<150)
[2017-12-28] MEDS: PREVNAR 13 VACCINE SYRINGE (CPT CODE:90670) IM (09:00)
[2017-12-28] MEDS: FLUBLOK(EGG FREE)(QUAD)INFLUENZA VACC 0.5ML SYRINGE (90682)18YRS&OLDER IM (09:00)
[2017-12-28] MEDS: ASCORBIC ACID 250 MG TAB PO ×3 (09:56→22:01)
[2017-12-28] MEDS: CYANOCOBALAMIN 500 MCG TAB PO (09:56)
[2017-12-28] MEDS: LACTOBACILLUS ACIDOPHILUS CAP (BACID) PO ×2 (09:56→17:36)
[2017-12-28] MEDS: HumaLOG INSULIN (NovoLOG) PER UNIT SC ×4 (09:56→22:02)
[2017-12-28] MEDS: VITAMIN E 400 INTERNATIONAL UNITS CAP PO (09:59)
[2017-12-28] MEDS: ATENOLOL 25 MG TAB PO (09:59)
[2017-12-28] MEDS: predniSONE 2.5 MG TAB PO ×2 (09:59→22:00)
[2017-12-28] MEDS: OCUVITE 1 TAB PO (09:59)
[2017-12-28] MEDS: DEXTRAN/HYPROMELLOSE OPHTH SOLN 15 ML(GENTEAL TEARS) OU ×3 (10:00→22:02)
[2017-12-28] MEDS: ENOXAPARIN 30 MG/0.3 ML SYR (J1650) SC (10:00)
[2017-12-28 10:27] LABS: FOLATE 10.1 NG/ML
[2017-12-28 11:43] LABS: BEDSIDE GLUCOSE 182 MG/DL (83-110)
[2017-12-28] MEDS: LevoFLOXacin IV 250 MG in APPROPRIATE DILUENT 1 EA IV (13:42)
[2017-12-28 17:00] LABS: BEDSIDE GLUCOSE 219 MG/DL (83-110)
[2017-12-28 19:46] LABS: BEDSIDE GLUCOSE 251 MG/DL (83-110)
[2017-12-28] MEDS: MAGNESIUM OXIDE 400 MG TAB (MAG-OX) PO (22:01)
[2017-12-28] MEDS: CLOPIDOGREL 75 MG TAB PO (22:01)
[2017-12-28] MEDS: ASPIRIN 81 MG ENTERIC TAB PO (22:01)
[2017-12-28] MEDS: ATORVASTATIN 10 MG TAB PO (22:01)
[2017-12-28] MEDS: LEVEMIR (INSULIN DETEMIR) 1 UNITS/0.01ML SC (22:01)
[2017-12-29] MEDS: HYDROCORTISONE 100 MG/2 ML VIAL (J1720) IV ×3 (05:11→21:16)
[2017-12-29] MEDS: CALCIUM CARBONATE 500 MG CHEW U/D PO (05:34)
[2017-12-29 06:55] LABS: HEMATOCRIT 27.3 % (42.0-52.0); HEMOGLOBIN 9.2 g/dl (13.5-17.5); MEAN CORPUSCULAR HEMOGLOBIN 32.1 pg (27.0-33.0); MEAN CORPUSCULAR HGB CONC 33.7 g/dl (32.0-36.5); MEAN CORPUSCULAR VOLUME 95.1 fl (80.0-96.0); PLATELET COUNT, AUTOMATED 167 10^3/uL (150-450); RED BLOOD COUNT 2.87 10^6/uL (4.30-6.10); RED CELL DISTRIBUTION WIDTH 14.4 % (11.5-14.5); WHITE BLOOD COUNT 10.3 10^3/uL (4.0-10.0)
[2017-12-29 07:25] LABS: ANION GAP 9 MEQ/L (8-16); BLOOD UREA NITROGEN 31 MG/DL (7-18); CALCIUM LEVEL 7.9 MG/DL (8.8-10.2); CARBON DIOXIDE LEVEL 22 MEQ/L (21-32); CHLORIDE LEVEL 106 MEQ/L (98-107); CREATININE FOR GFR 1.31 MG/DL (0.70-1.30); GLOMERULAR FILTRATION RATE 55.6 (>35); GLUCOSE, FASTING 224 MG/DL (70-100); POTASSIUM SERUM 4.2 MEQ/L (3.5-5.1); SODIUM LEVEL 137 MEQ/L (136-145)
[2017-12-29] MEDS: HumaLOG INSULIN (NovoLOG) PER UNIT SC ×4 (07:37→21:16)
[2017-12-29] MEDS: LACTOBACILLUS ACIDOPHILUS CAP (BACID) PO ×2 (07:37→17:46)
[2017-12-29] MEDS: CYANOCOBALAMIN 500 MCG TAB PO (08:57)
[2017-12-29] MEDS: ENOXAPARIN 30 MG/0.3 ML SYR (J1650) SC (08:57)
[2017-12-29] MEDS: predniSONE 2.5 MG TAB PO ×2 (08:57→21:15)
[2017-12-29] MEDS: OCUVITE 1 TAB PO (08:57)
[2017-12-29] MEDS: VITAMIN E 400 INTERNATIONAL UNITS CAP PO (08:57)
[2017-12-29] MEDS: ATENOLOL 25 MG TAB PO (08:57)
[2017-12-29] MEDS: DEXTRAN/HYPROMELLOSE OPHTH SOLN 15 ML(GENTEAL TEARS) OU ×3 (08:58→21:16)
[2017-12-29] MEDS: ASCORBIC ACID 250 MG TAB PO ×3 (08:58→21:15)
[2017-12-29 12:05] LABS: BEDSIDE GLUCOSE 176 MG/DL (83-110)
[2017-12-29] MEDS: LevoFLOXacin IV 250 MG in APPROPRIATE DILUENT 1 EA IV (13:31)
[2017-12-29 14:07] LABS: ALBUMIN 2.95 GM/DL (3.29-5.55); ALBUMIN % 53.6 % (55.8-66.1); ALPHA-1-GLOBULIN % 7.1 % (2.9-4.9); ALPHA-1-GLOBULINS 0.39 GM/DL (0.17-0.41); ALPHA-2-GLOBULINS 0.93 GM/DL (0.42-0.99); ALPHA-2-GLOBULINS % 16.9 % (7.1-11.8); BETA-1-GLOBULINS 0.29 GM/DL (0.28-0.60); BETA-1-GLOBULINS % 5.2 % (4.7-7.2); BETA-2-GLOBULINS 0.34 GM/DL (0.19-0.55); BETA-2-GLOBULINS % 6.1 % (3.2-6.5); GAMMA GLOBULIN % 11.1 % (11.1-18.8); GAMMA GLOBULINS 0.61 GM/DL (0.65-1.58)
[2017-12-29 16:58] LABS: BEDSIDE GLUCOSE 217 MG/DL (83-110)
[2017-12-29 20:24] LABS: BEDSIDE GLUCOSE 258 MG/DL (83-110)
[2017-12-29] MEDS: MAGNESIUM OXIDE 400 MG TAB (MAG-OX) PO (21:15)
[2017-12-29] MEDS: ATORVASTATIN 10 MG TAB PO (21:15)
[2017-12-29] MEDS: CLOPIDOGREL 75 MG TAB PO (21:15)
[2017-12-29] MEDS: LEVEMIR (INSULIN DETEMIR) 1 UNITS/0.01ML SC (21:16)
[2017-12-29] MEDS: ASPIRIN 81 MG ENTERIC TAB PO (21:16)
[2017-12-30] MEDS: HYDROCORTISONE 100 MG/2 ML VIAL (J1720) IV (05:39)
[2017-12-30] MEDS: LevoFLOXacin 250 MG TABLET PO (05:39)
[2017-12-30 06:15] LABS: HEMATOCRIT 25.8 % (42.0-52.0); HEMOGLOBIN 8.6 g/dl (13.5-17.5); MEAN CORPUSCULAR HEMOGLOBIN 31.3 pg (27.0-33.0); MEAN CORPUSCULAR HGB CONC 33.3 g/dl (32.0-36.5); MEAN CORPUSCULAR VOLUME 93.8 fl (80.0-96.0); PLATELET COUNT, AUTOMATED 174 10^3/uL (150-450); RED BLOOD COUNT 2.75 10^6/uL (4.30-6.10); RED CELL DISTRIBUTION WIDTH 14.2 % (11.5-14.5); WHITE BLOOD COUNT 8.3 10^3/uL (4.0-10.0)
[2017-12-30 06:31] LABS: ANION GAP 7 MEQ/L (8-16); BLOOD UREA NITROGEN 34 MG/DL (7-18); C REACTIVE PROTEIN QUANTITATIV 4.26 MG/DL (0.00-0.30); CALCIUM LEVEL 7.9 MG/DL (8.8-10.2); CARBON DIOXIDE LEVEL 24 MEQ/L (21-32); CHLORIDE LEVEL 107 MEQ/L (98-107); CREATININE FOR GFR 1.12 MG/DL (0.70-1.30); GLOMERULAR FILTRATION RATE > 60.0 (>35); GLUCOSE, FASTING 188 MG/DL (70-100); POTASSIUM SERUM 3.9 MEQ/L (3.5-5.1); SODIUM LEVEL 138 MEQ/L (136-145)
[2017-12-30] MEDS: ENOXAPARIN 30 MG/0.3 ML SYR (J1650) SC (08:35)
[2017-12-30] MEDS: OCUVITE 1 TAB PO (08:36)
[2017-12-30] MEDS: ASCORBIC ACID 250 MG TAB PO (08:36)
[2017-12-30] MEDS: CYANOCOBALAMIN 500 MCG TAB PO (08:36)
[2017-12-30] MEDS: HumaLOG INSULIN (NovoLOG) PER UNIT SC ×2 (08:36→13:06)
[2017-12-30] MEDS: VITAMIN E 400 INTERNATIONAL UNITS CAP PO (08:37)
[2017-12-30] MEDS: LACTOBACILLUS ACIDOPHILUS CAP (BACID) PO (08:37)
[2017-12-30] MEDS: predniSONE 2.5 MG TAB PO (08:37)
[2017-12-30] MEDS: ATENOLOL 25 MG TAB PO (08:39)
[2017-12-30] MEDS: DEXTRAN/HYPROMELLOSE OPHTH SOLN 15 ML(GENTEAL TEARS) OU (09:33)
[2017-12-30 11:31] LABS: BEDSIDE GLUCOSE 177 MG/DL (83-110)
[2017-12-30] MEDS: FLUBLOK(EGG FREE)(QUAD)INFLUENZA VACC 0.5ML SYRINGE (90682)18YRS&OLDER IM (13:09)
[2017-12-30] MEDS: PREVNAR 13 VACCINE SYRINGE (CPT CODE:90670) IM (13:11)
[2017-12-31] MEDS ORDERED: LevoFLOXacin 500 MG TABLET PO (06:00)
== END 2017-12-30 13:59 | disposition home or self-care (01) | DRG 872 ==
LOC: M MSPAV 12-28 15:00 → M ED 09:58 → M ED INP 13:09 → M MSPAV 14:24
DX: A41.9 Sepsis, unspecified organism (principal); N39.0 Urinary tract infection, site not specified; N17.9 Acute kidney failure, unspecified; E11.51 Type 2 diabetes mellitus with diabetic peripheral angiopathy without gangrene; G47.33 Obstructive sleep apnea (adult) (pediatric); E78.5 Hyperlipidemia, unspecified; M06.9 Rheumatoid arthritis, unspecified; E66.9 Obesity, unspecified; Z79.52 Long term (current) use of systemic steroids; D64.9 Anemia, unspecified; I10 Essential (primary) hypertension; Z68.33 Body mass index [BMI] 33.0-33.9, adult; Z79.82 Long term (current) use of aspirin; Z79.899 Other long term (current) drug therapy; Z79.4 Long term (current) use of insulin; R29.6 Repeated falls; Z88.0 Allergy status to penicillin; Z88.1 Allergy status to other antibiotic agents; Z87.891 Personal history of nicotine dependence

== ENCOUNTER 2018-01-30 09:43 | Inpatient (IN) | payer MEDICARE, BC, OTHER ==
[2018-01-30] MEDS: DILUENT IV (10:30)
[2018-01-30] MEDS: NS IV (10:30)
[2018-01-30 10:38] LABS: VENOUS BASE EXCESS -2.9 (-2.0-2.0); VENOUS O2 SATURATION 68.2 % (60.0-80.0); VENOUS PARTIAL PRESSURE CO2 56.8 mmHg (38.0-50.0); VENOUS PARTIAL PRESSURE O2 41.2 mmHg (30.0-50.0); VENOUS PH 7.262 UNITS (7.330-7.430); VENOUS STANDARD HCO3 21.4 MEQ/L; VENOUS TOTAL CO2 26.8 MEQ/L (24.0-28.0)
[2018-01-30 10:41] LABS: BASO # 0.1 10^3/uL (0.0-0.2); BASO % 0.5 % (0.0-1.0); EOS # 0.2 10^3/uL (0.0-0.50); EOS % 1.8 % (0.0-3.0); HEMATOCRIT 42.8 % (42.0-52.0); HEMOGLOBIN 13.6 g/dl (13.5-17.5); IMMATURE GRANULOCYTE % 0.5 % (0-3.0); LYMPH % 8.7 % (24.0-44.0); MEAN CORPUSCULAR HEMOGLOBIN 31.3 pg (27.0-33.0); MEAN CORPUSCULAR HGB CONC 31.8 g/dl (32.0-36.5); MEAN CORPUSCULAR VOLUME 98.4 fl (80.0-96.0); MONO # 0.9 10^3/uL (0.0-0.8); MONO % 7.1 % (0.0-5.0); NEUTROPHILS # 9.7 10^3/uL (1.8-7.7); NEUTROPHILS % 81.4 % (36.0-66.0); PLATELET COUNT, AUTOMATED 300 10^3/uL (150-450); RED BLOOD COUNT 4.35 10^6/uL (4.30-6.10); RED CELL DISTRIBUTION WIDTH 14.6 % (11.5-14.5)
[2018-01-30] MEDS: LevoFLOXacin IV 750 MG in APPROPRIATE DILUENT 1 EA IV (10:41)
[2018-01-30 10:59] LABS: LACTIC ACID SEPSIS PROTOCOL 6.1 MMOL/L (0.4-2.0)
[2018-01-30 11:06] LABS: INR 0.97
[2018-01-30 11:07] LABS: PARTIAL THROMBOPLASTIN TIME 29.6 SECONDS (25.4-37.6)
[2018-01-30 11:14] LABS: APPEARANCE, URINE CLEAR (CLEAR); BACTERIA, URINE AUTO NEGATIVE (NEGATIVE); BILIRUBIN, URINE AUTO NEGATIVE (NEGATIVE); BLOOD, URINE BLOOD NEGATIVE (NEGATIVE); COLOR, URINE YELLOW (YELLOW); GLUCOSE, URINE (UA) AUTO NEGATIVE (NEGATIVE); KETONE, URINE AUTO NEGATIVE (NEGATIVE); LEUKOCYTE ESTERASE, URINE AUTO NEGATIVE (NEGATIVE); MUCUS, URINE SMALL (NEGATIVE); NITRITE, URINE AUTO NEGATIVE (NEGATIVE); PROTEIN, URINE AUTO NEGATIVE (NEGATIVE); RBC, URINE AUTO 0 /HPF (0-3); SPECIFIC GRAVITY URINE AUTO 1.012 (1.002-1.035); SQUAMOUS EPITHELIAL CELL UR AU 0 /HPF (0-6); UROBILINOGEN, URINE AUTO 0.2 mg/dL (0.0-2.0); WBC, URINE AUTO 0 /HPF (0-3)
[2018-01-30 11:20] LABS: ALBUMIN 3.9 GM/DL (3.2-5.2); ALBUMIN/GLOBULIN RATIO 0.93 (1.00-1.93); ALKALINE PHOSPHATASE 75 U/L (45-117); ALT/SGPT 39 U/L (12-78); AMYLASE 110 U/L (25-115); ANION GAP 14 MEQ/L (8-16); AST/SGOT 32 U/L (7-37); BILIRUBIN,DIRECT 0.2 MG/DL (0.0-0.2); BILIRUBIN,TOTAL 0.8 MG/DL (0.2-1.0); BLOOD UREA NITROGEN 43 MG/DL (7-18); CALCIUM LEVEL 10.1 MG/DL (8.8-10.2); CARBON DIOXIDE LEVEL 25 MEQ/L (21-32); CHLORIDE LEVEL 94 MEQ/L (98-107); CPK CREATINE PHOSPHOKINASE 132 U/L (39-308); CREATININE FOR GFR 2.93 MG/DL (0.70-1.30); GLUCOSE, FASTING 223 MG/DL (70-100); MB/CK RELATIVE INDEX 9.09 (< OR =4); POTASSIUM SERUM 4.6 MEQ/L (3.5-5.1); SODIUM LEVEL 133 MEQ/L (136-145); TOTAL PROTEIN 8.1 GM/DL (6.4-8.2); TROPONIN I < 0.02 NG/ML (< 0.10)
[2018-01-30] MEDS: ACETAMINOPHEN 325 MG TAB PO (11:20)
[2018-01-30] MEDS: HYDROCORTISONE 100 MG/2 ML VIAL (J1720) IV ×2 (11:20→18:12)
[2018-01-30 11:25] LABS: INFLUENZA A AMPLIFICATION NEGATIVE (NEGATIVE); INFLUENZA B AMPLIFICATION NEGATIVE (NEGATIVE)
[2018-01-30 11:35] LABS: OSMOLALITY URINE 368 MOSM/KG (500-800)
[2018-01-30 12:28] LABS: OSMOLALITY SERUM 303 MOSM/KG (280-301)
[2018-01-30] MEDS: SODIUM CHLORIDE 0.9% 1000ML IV ×3 (12:45→18:35)
[2018-01-30 12:54] LABS: PHOSPHORUS LEVEL 5.9 MG/DL (2.5-4.9)
[2018-01-30 12:54] LABS: MAGNESIUM LEVEL 2.1 MG/DL (1.8-2.4)
[2018-01-30] MEDS ORDERED: predniSONE 5 MG TAB PO (13:00)
[2018-01-30] MEDS ORDERED: GLUCAGON FOR INJ 1 MG VIAL (J1610) SC (14:45)
[2018-01-30] MEDS ORDERED: GLUCOSE 4 GM CHEW TABLET PO (14:45)
[2018-01-30] MEDS ORDERED: DEXTROSE 50% 50 ML SYRINGE IV (14:45)
[2018-01-30] MEDS: NS 1,000 ML IV ×2 (14:57→21:49)
[2018-01-30] MEDS: NOREPINEPHRINE BITARTRATE 8 MG in D5W 492 ML IV (15:00)
[2018-01-30 15:58] LABS: ESTIMATED AVERAGE GLUCOSE 151 MG/DL (60-110); HEMOGLOBIN A1c 6.9 %
[2018-01-30] MEDS: HEPARIN SOD (PORCINE) 5000 UNITS/ML VIAL SQ ×2 (16:10→21:49)
[2018-01-30] MEDS: VANCOMYCIN HCL 1,000 MG, VIAL MATE ADAPTER 1 EACH in D5W 250 ML IV (16:11)
[2018-01-30] MEDS: VANCOMYCIN HCL 750 MG, VIAL MATE ADAPTER 1 EACH in D5W 250 ML IV (17:16)
[2018-01-30] MEDS ORDERED: HumaLOG INSULIN (NovoLOG) PER UNIT SC ×2 (17:30→21:00)
[2018-01-30 17:54] LABS: BEDSIDE GLUCOSE 269 MG/DL (83-110)
[2018-01-30] MEDS: HumaLOG INSULIN (NovoLOG) PER UNIT SC (18:12)
[2018-01-30] MEDS: AZTREONAM 2 GM in D5W MINI-BAG PLUS 50 ML IV (20:05)
[2018-01-30] MEDS ORDERED: predniSONE 2.5 MG TAB PO (21:00)
[2018-01-31 00:20] LABS: BEDSIDE GLUCOSE 150 MG/DL (83-110)
[2018-01-31] MEDS: HumaLOG INSULIN (NovoLOG) PER UNIT SC ×4 (00:31→17:50)
[2018-01-31] MEDS: AZTREONAM 1 GM in D5W MINI-BAG PLUS 50 ML IV ×3 (00:32→17:36)
[2018-01-31] MEDS: HYDROCORTISONE 100 MG/2 ML VIAL (J1720) IV ×2 (02:09→08:37)
[2018-01-31] MEDS: NS 1,000 ML IV ×3 (04:45→20:28)
[2018-01-31 05:38] LABS: BASO % 0.3 % (0.0-1.0); EOS % 0.2 % (0.0-3.0); HEMATOCRIT 28.2 % (42.0-52.0); IMMATURE GRANULOCYTE % 0.4 % (0-3.0); LYMPH # 0.6 10^3/uL (1.5-4.5); MEAN CORPUSCULAR HEMOGLOBIN 31.6 pg (27.0-33.0); MEAN CORPUSCULAR HGB CONC 31.6 g/dl (32.0-36.5); MONO # 1.3 10^3/uL (0.0-0.8); MONO % 13.8 % (0.0-5.0); NEUTROPHILS # 7.6 10^3/uL (1.8-7.7); NEUTROPHILS % 79.3 % (36.0-66.0); RED BLOOD COUNT 2.82 10^6/uL (4.30-6.10); RED CELL DISTRIBUTION WIDTH 14.9 % (11.5-14.5); WHITE BLOOD COUNT 9.6 10^3/uL (4.0-10.0)
[2018-01-31 05:46] LABS: HEMOGLOBIN 8.9 g/dl (13.5-17.5); PLATELET COUNT, AUTOMATED 156 10^3/uL (150-450)
[2018-01-31 06:05] LABS: ANION GAP 9 MEQ/L (8-16); BLOOD UREA NITROGEN 45 MG/DL (7-18); CALCIUM LEVEL 7.7 MG/DL (8.8-10.2); CARBON DIOXIDE LEVEL 24 MEQ/L (21-32); CHLORIDE LEVEL 109 MEQ/L (98-107); CREATININE FOR GFR 1.87 MG/DL (0.70-1.30); GLOMERULAR FILTRATION RATE 36.9 (>35); GLUCOSE, FASTING 135 MG/DL (70-100); POTASSIUM SERUM 4.6 MEQ/L (3.5-5.1); SODIUM LEVEL 142 MEQ/L (136-145)
[2018-01-31] MEDS: HEPARIN SOD (PORCINE) 5000 UNITS/ML VIAL SQ ×3 (06:20→20:28)
[2018-01-31] MEDS: NOREPINEPHRINE BITARTRATE 8 MG in D5W 492 ML IV (07:40)
[2018-01-31] MEDS: CALCIUM GLUCONATE 1,000 MG in D5W MINI-BAG PLUS 100 ML IV (08:38)
[2018-01-31 09:59] LABS: BEDSIDE GLUCOSE 141 MG/DL (83-110)
[2018-01-31] MEDS: VANCOMYCIN HCL 1,000 MG, VIAL MATE ADAPTER 1 EACH in D5W 250 ML IV (10:03)
[2018-01-31 11:57] LABS: BEDSIDE GLUCOSE 149 MG/DL (83-110)
[2018-01-31 17:30] LABS: BEDSIDE GLUCOSE 142 MG/DL (83-110)
[2018-01-31 20:27] LABS: BEDSIDE GLUCOSE 128 MG/DL (83-110)
[2018-02-01] MEDS: NOREPINEPHRINE BITARTRATE 8 MG in D5W 492 ML IV (00:20)
[2018-02-01] MEDS: AZTREONAM 1 GM in D5W MINI-BAG PLUS 50 ML IV ×2 (00:23→09:00)
[2018-02-01] MEDS: VANCOMYCIN HCL 1,000 MG, VIAL MATE ADAPTER 1 EACH in D5W 250 ML IV (04:00)
[2018-02-01 04:14] LABS: HEMATOCRIT 25.6 % (42.0-52.0); MEAN CORPUSCULAR HEMOGLOBIN 31.4 pg (27.0-33.0); MEAN CORPUSCULAR HGB CONC 31.3 g/dl (32.0-36.5); MEAN CORPUSCULAR VOLUME 100.4 fl (80.0-96.0); PLATELET COUNT, AUTOMATED 140 10^3/uL (150-450); RED BLOOD COUNT 2.55 10^6/uL (4.30-6.10); RED CELL DISTRIBUTION WIDTH 14.9 % (11.5-14.5); WHITE BLOOD COUNT 8.9 10^3/uL (4.0-10.0)
[2018-02-01 05:15] LABS: ALBUMIN 2.2 GM/DL (3.2-5.2); ALBUMIN/GLOBULIN RATIO 0.81 (1.00-1.93); ALKALINE PHOSPHATASE 41 U/L (45-117); ALT/SGPT 28 U/L (12-78); ANION GAP 8 MEQ/L (8-16); AST/SGOT 20 U/L (7-37); BILIRUBIN,TOTAL 0.4 MG/DL (0.2-1.0); BLOOD UREA NITROGEN 36 MG/DL (7-18); CALCIUM LEVEL 7.6 MG/DL (8.8-10.2); CARBON DIOXIDE LEVEL 24 MEQ/L (21-32); CHLORIDE LEVEL 111 MEQ/L (98-107); CHOLESTEROL LEVEL 90 MG/DL (< 200); CPK CREATINE PHOSPHOKINASE 77 U/L (39-308); CREATININE FOR GFR 1.16 MG/DL (0.70-1.30); GLOMERULAR FILTRATION RATE > 60.0 (>35); GLUCOSE, FASTING 95 MG/DL (70-100); POTASSIUM SERUM 3.9 MEQ/L (3.5-5.1); SODIUM LEVEL 143 MEQ/L (136-145); TOTAL PROTEIN 4.9 GM/DL (6.4-8.2); TRIGLYCERIDES LEVEL 220 MG/DL (<150)
[2018-02-01] MEDS: NS 1,000 ML IV ×2 (05:16→14:24)
[2018-02-01] MEDS: HEPARIN SOD (PORCINE) 5000 UNITS/ML VIAL SQ ×3 (05:49→20:31)
[2018-02-01] MEDS: HumaLOG INSULIN (NovoLOG) PER UNIT SC ×5 (06:00→23:33)
[2018-02-01] MEDS: CALCIUM GLUCONATE 1,000 MG in D5W MINI-BAG PLUS 100 ML IV (06:15)
[2018-02-01] MEDS: predniSONE 2.5 MG TAB PO ×2 (10:41→20:30)
[2018-02-01 11:41] LABS: BEDSIDE GLUCOSE 116 MG/DL (83-110)
[2018-02-01 13:08] LABS: LDH LACTATE DEHYDROGENASE 254 U/L (87-241)
[2018-02-01 17:36] LABS: BEDSIDE GLUCOSE 140 MG/DL (83-110)
[2018-02-01 23:34] LABS: BEDSIDE GLUCOSE 145 MG/DL (83-110)
[2018-02-02] MEDS: HEPARIN SOD (PORCINE) 5000 UNITS/ML VIAL SQ ×3 (05:31→22:22)
[2018-02-02 05:46] LABS: HEMATOCRIT 25.9 % (42.0-52.0); HEMOGLOBIN 8.4 g/dl (13.5-17.5); MEAN CORPUSCULAR HEMOGLOBIN 31.8 pg (27.0-33.0); MEAN CORPUSCULAR HGB CONC 32.4 g/dl (32.0-36.5); MEAN CORPUSCULAR VOLUME 98.1 fl (80.0-96.0); PLATELET COUNT, AUTOMATED 156 10^3/uL (150-450); RED BLOOD COUNT 2.64 10^6/uL (4.30-6.10); RED CELL DISTRIBUTION WIDTH 14.6 % (11.5-14.5); WHITE BLOOD COUNT 8.6 10^3/uL (4.0-10.0)
[2018-02-02 06:09] LABS: ANION GAP 7 MEQ/L (8-16); BLOOD UREA NITROGEN 24 MG/DL (7-18); CALCIUM LEVEL 7.8 MG/DL (8.8-10.2); CARBON DIOXIDE LEVEL 23 MEQ/L (21-32); CHLORIDE LEVEL 112 MEQ/L (98-107); CREATININE FOR GFR 0.78 MG/DL (0.70-1.30); GLOMERULAR FILTRATION RATE > 60.0 (>35); GLUCOSE, FASTING 117 MG/DL (70-100); POTASSIUM SERUM 3.9 MEQ/L (3.5-5.1); SODIUM LEVEL 142 MEQ/L (136-145)
[2018-02-02] MEDS: HumaLOG INSULIN (NovoLOG) PER UNIT SC ×4 (06:19→21:00)
[2018-02-02] MEDS: NS 1,000 ML IV (06:44)
[2018-02-02] MEDS: predniSONE 2.5 MG TAB PO ×2 (09:22→22:22)
[2018-02-02 11:26] LABS: BEDSIDE GLUCOSE 135 MG/DL (83-110)
[2018-02-02] MEDS ORDERED: SODIUM CHLORIDE 0.9% INJ 10 ML SYR IV (12:45)
[2018-02-02] MEDS: SODIUM CHLORIDE 0.9% INJ 10 ML SYR IV ×2 (13:38→22:23)
[2018-02-02 16:24] LABS: BEDSIDE GLUCOSE 150 MG/DL (83-110)
[2018-02-02 20:05] LABS: BEDSIDE GLUCOSE 163 MG/DL (83-110)
[2018-02-03] MEDS: HEPARIN SOD (PORCINE) 5000 UNITS/ML VIAL SQ ×3 (05:05→20:45)
[2018-02-03] MEDS: SODIUM CHLORIDE 0.9% INJ 10 ML SYR IV ×3 (05:06→20:48)
[2018-02-03 05:25] LABS: HEMATOCRIT 27.3 % (42.0-52.0); HEMOGLOBIN 8.9 g/dl (13.5-17.5); MEAN CORPUSCULAR HEMOGLOBIN 31.1 pg (27.0-33.0); MEAN CORPUSCULAR HGB CONC 32.6 g/dl (32.0-36.5); MEAN CORPUSCULAR VOLUME 95.5 fl (80.0-96.0); PLATELET COUNT, AUTOMATED 173 10^3/uL (150-450); RED BLOOD COUNT 2.86 10^6/uL (4.30-6.10); RED CELL DISTRIBUTION WIDTH 14.2 % (11.5-14.5); WHITE BLOOD COUNT 8.8 10^3/uL (4.0-10.0)
[2018-02-03 05:52] LABS: ANION GAP 8 MEQ/L (8-16); BLOOD UREA NITROGEN 15 MG/DL (7-18); CALCIUM LEVEL 7.7 MG/DL (8.8-10.2); CARBON DIOXIDE LEVEL 24 MEQ/L (21-32); CHLORIDE LEVEL 108 MEQ/L (98-107); CREATININE FOR GFR 0.78 MG/DL (0.70-1.30); GLOMERULAR FILTRATION RATE > 60.0 (>35); GLUCOSE, FASTING 133 MG/DL (70-100); POTASSIUM SERUM 3.6 MEQ/L (3.5-5.1); SODIUM LEVEL 140 MEQ/L (136-145)
[2018-02-03] MEDS: predniSONE 2.5 MG TAB PO ×2 (08:16→20:45)
[2018-02-03] MEDS: HumaLOG INSULIN (NovoLOG) PER UNIT SC ×4 (08:17→21:00)
[2018-02-03 09:06] LABS: MAGNESIUM LEVEL 1.6 MG/DL (1.8-2.4); PHOSPHORUS LEVEL 1.5 MG/DL (2.5-4.9)
[2018-02-03] MEDS: FUROSEMIDE 20 MG TAB PO (10:57)
[2018-02-03 11:36] LABS: BEDSIDE GLUCOSE 148 MG/DL (83-110)
[2018-02-03 16:59] LABS: BEDSIDE GLUCOSE 160 MG/DL (83-110)
[2018-02-03 19:35] LABS: BEDSIDE GLUCOSE 162 MG/DL (83-110)
[2018-02-03] MEDS: ATORVASTATIN 10 MG TAB PO (20:45)
[2018-02-03] MEDS: LISINOPRIL *2.5 MG* TAB PO (20:47)
[2018-02-04] MEDS: SODIUM CHLORIDE 0.9% INJ 10 ML SYR IV ×3 (05:43→21:36)
[2018-02-04] MEDS: HEPARIN SOD (PORCINE) 5000 UNITS/ML VIAL SQ ×3 (05:43→21:31)
[2018-02-04 06:01] LABS: HEMATOCRIT 29.8 % (42.0-52.0); HEMOGLOBIN 9.8 g/dl (13.5-17.5); MEAN CORPUSCULAR HEMOGLOBIN 31.5 pg (27.0-33.0); MEAN CORPUSCULAR HGB CONC 32.9 g/dl (32.0-36.5); MEAN CORPUSCULAR VOLUME 95.8 fl (80.0-96.0); PLATELET COUNT, AUTOMATED 193 10^3/uL (150-450); RED BLOOD COUNT 3.11 10^6/uL (4.30-6.10); RED CELL DISTRIBUTION WIDTH 14.1 % (11.5-14.5); WHITE BLOOD COUNT 9.2 10^3/uL (4.0-10.0)
[2018-02-04 06:31] LABS: ANION GAP 11 MEQ/L (8-16); BLOOD UREA NITROGEN 10 MG/DL (7-18); CALCIUM LEVEL 7.8 MG/DL (8.8-10.2); CARBON DIOXIDE LEVEL 25 MEQ/L (21-32); CHLORIDE LEVEL 102 MEQ/L (98-107); CREATININE FOR GFR 0.86 MG/DL (0.70-1.30); GLOMERULAR FILTRATION RATE > 60.0 (>35); GLUCOSE, FASTING 148 MG/DL (70-100); POTASSIUM SERUM 3.4 MEQ/L (3.5-5.1); SODIUM LEVEL 138 MEQ/L (136-145)
[2018-02-04] MEDS: HumaLOG INSULIN (NovoLOG) PER UNIT SC ×4 (08:36→21:00)
[2018-02-04] MEDS: predniSONE 2.5 MG TAB PO ×2 (09:10→21:35)
[2018-02-04] MEDS: FUROSEMIDE 20 MG TAB PO (09:11)
[2018-02-04 09:20] LABS: MAGNESIUM LEVEL 1.5 MG/DL (1.8-2.4); PHOSPHORUS LEVEL 1.9 MG/DL (2.5-4.9)
[2018-02-04] MEDS: MULTIVITAMINS/MINERALS THERAP 1 TAB PO (11:27)
[2018-02-04] MEDS: ONDANSETRON 4MG/2ML VIAL (J2405) IV (11:27)
[2018-02-04] MEDS: MAG SULF 1GM/100ML (MAG RUN) 1 GM in APPROPRIATE DILUENT 1 EA IV ×2 (11:28→11:31)
[2018-02-04] MEDS ORDERED: ATENOLOL 25 MG TAB As Ordered (12:49)
[2018-02-04] MEDS: ATENOLOL 25 MG TAB PO ×2 (12:53→21:34)
[2018-02-04] MEDS: LISINOPRIL *2.5 MG* TAB PO (21:33)
[2018-02-04] MEDS: CLOPIDOGREL 75 MG TAB PO (21:35)
[2018-02-04] MEDS: ATORVASTATIN 10 MG TAB PO (21:35)
[2018-02-05 00:26] LABS: BEDSIDE GLUCOSE 124 MG/DL (83-110)
[2018-02-05 00:26] LABS: BEDSIDE GLUCOSE 190 MG/DL (83-110)
[2018-02-05 00:26] LABS: BEDSIDE GLUCOSE 122 MG/DL (83-110)
[2018-02-05] MEDS: SODIUM CHLORIDE 0.9% INJ 10 ML SYR IV (06:00)
[2018-02-05] MEDS: HEPARIN SOD (PORCINE) 5000 UNITS/ML VIAL SQ (06:34)
[2018-02-05 07:17] LABS: HEMATOCRIT 29.5 % (42.0-52.0); HEMOGLOBIN 9.7 g/dl (13.5-17.5); MEAN CORPUSCULAR HEMOGLOBIN 31.1 pg (27.0-33.0); MEAN CORPUSCULAR HGB CONC 32.9 g/dl (32.0-36.5); MEAN CORPUSCULAR VOLUME 94.6 fl (80.0-96.0); PLATELET COUNT, AUTOMATED 217 10^3/uL (150-450); RED BLOOD COUNT 3.12 10^6/uL (4.30-6.10); RED CELL DISTRIBUTION WIDTH 14.1 % (11.5-14.5); WHITE BLOOD COUNT 11.4 10^3/uL (4.0-10.0)
[2018-02-05 07:36] LABS: ANION GAP 11 MEQ/L (8-16); BLOOD UREA NITROGEN 11 MG/DL (7-18); CALCIUM LEVEL 7.7 MG/DL (8.8-10.2); CARBON DIOXIDE LEVEL 25 MEQ/L (21-32); CHLORIDE LEVEL 103 MEQ/L (98-107); CREATININE FOR GFR 0.88 MG/DL (0.70-1.30); GLOMERULAR FILTRATION RATE > 60.0 (>35); GLUCOSE, FASTING 145 MG/DL (70-100); POTASSIUM SERUM 3.2 MEQ/L (3.5-5.1); SODIUM LEVEL 139 MEQ/L (136-145)
[2018-02-05 08:10] LABS: MAGNESIUM LEVEL 1.7 MG/DL (1.8-2.4)
[2018-02-05] MEDS: FUROSEMIDE 20 MG TAB PO (08:38)
[2018-02-05] MEDS: HumaLOG INSULIN (NovoLOG) PER UNIT SC ×2 (08:38→12:25)
[2018-02-05] MEDS: MULTIVITAMINS/MINERALS THERAP 1 TAB PO (08:39)
[2018-02-05] MEDS: ATENOLOL 25 MG TAB PO (08:39)
[2018-02-05] MEDS: POTASSIUM CHLORIDE 10 MEQ SR TABLET PO (08:39)
[2018-02-05] MEDS: predniSONE 2.5 MG TAB PO (08:39)
[2018-02-05] MEDS: MAGNESIUM OXIDE 400 MG TAB (MAG-OX) PO (08:39)
[2018-02-05 11:30] LABS: BEDSIDE GLUCOSE 147 MG/DL (83-110)
== END 2018-02-05 13:30 | disposition home health service (06) | DRG 871 ==
LOC: M PCU 02-01 09:58 → M MS5PR 02-02 21:00 → M ED 09:43 → M ED INP 11:54 → M ICU 13:11
PROC: 02HV33Z Insertion of Infusion Device into Superior Vena Cava, Percutaneous Approach (ICD-10-PCS; principal; 2018-01-30)
DX: A41.9 Sepsis, unspecified organism (principal); R65.21 Severe sepsis with septic shock; K56.7 Ileus, unspecified; N17.9 Acute kidney failure, unspecified; K52.9 Noninfective gastroenteritis and colitis, unspecified; I10 Essential (primary) hypertension; E78.5 Hyperlipidemia, unspecified; M06.9 Rheumatoid arthritis, unspecified; E83.51 Hypocalcemia; R29.6 Repeated falls; D64.9 Anemia, unspecified; E11.51 Type 2 diabetes mellitus with diabetic peripheral angiopathy without gangrene; G47.33 Obstructive sleep apnea (adult) (pediatric); Z79.82 Long term (current) use of aspirin; Z79.4 Long term (current) use of insulin; Z79.52 Long term (current) use of systemic steroids; Z88.0 Allergy status to penicillin; Z88.1 Allergy status to other antibiotic agents; Z90.49 Acquired absence of other specified parts of digestive tract; Z87.891 Personal history of nicotine dependence; Z98.62 Peripheral vascular angioplasty status; Z89.429 Acquired absence of other toe(s), unspecified side; Z87.440 Personal history of urinary (tract) infections

== ENCOUNTER → 2018-02-16 | Outpatient (REF) | payer MEDICARE, OTHER ==
[2018-02-16 15:58] LABS: APPEARANCE, URINE CLEAR (CLEAR); BACTERIA, URINE AUTO NEGATIVE (NEGATIVE); BILIRUBIN, URINE AUTO NEGATIVE (NEGATIVE); BLOOD, URINE BLOOD NEGATIVE (NEGATIVE); COLOR, URINE YELLOW (YELLOW); GLUCOSE, URINE (UA) AUTO NEGATIVE (NEGATIVE); KETONE, URINE AUTO NEGATIVE (NEGATIVE); LEUKOCYTE ESTERASE, URINE AUTO NEGATIVE (NEGATIVE); NITRITE, URINE AUTO NEGATIVE (NEGATIVE); PROTEIN, URINE AUTO NEGATIVE (NEGATIVE); RBC, URINE AUTO 0 /HPF (0-3); SPECIFIC GRAVITY URINE AUTO 1.017 (1.002-1.035); SQUAMOUS EPITHELIAL CELL UR AU 0 /HPF (0-6); UROBILINOGEN, URINE AUTO 0.2 mg/dL (0.0-2.0); WBC, URINE AUTO 0 /HPF (0-3)
== END ==
LOC: M LAB REF 15:04
DX: A41.9 Sepsis, unspecified organism (principal)
CPT/HCPCS: 81001

== ENCOUNTER → 2018-03-05 | Outpatient (REF) | payer MEDICARE, OTHER ==
[~2018-03-05] MED LIST changes: +ACE65ERTAB PO; +APAP500T10 PO; +ASCO25TA PO; +ASCO500T PO; +ASPI1TAB15 PO; +BACITAB PO; +CEFD300CAP PO; +DRIS50003 PO; +GABA-843 PO; +KETO2CR TOP; +LEVA1TAB2 PO; +LEVA250T13 PO; +LISI2.5T5 PO; +NATU400T PO; +NITR100C2 PO; +NITRO10CA PO; +OCUVTAB PO; -REFR1DRO8 OP; +REFR1DRO8 OU; +VITA250011 SL; +VITA30005 SL; +VITA400C67 PO
[2018-03-05 16:02] LABS: APPEARANCE, URINE CLEAR (CLEAR); BACTERIA, URINE AUTO NEGATIVE (NEGATIVE); BILIRUBIN, URINE AUTO NEGATIVE (NEGATIVE); BLOOD, URINE BLOOD NEGATIVE (NEGATIVE); COLOR, URINE YELLOW (YELLOW); GLUCOSE, URINE (UA) AUTO NEGATIVE (NEGATIVE); KETONE, URINE AUTO NEGATIVE (NEGATIVE); LEUKOCYTE ESTERASE, URINE AUTO NEGATIVE (NEGATIVE); NITRITE, URINE AUTO NEGATIVE (NEGATIVE); PROTEIN, URINE AUTO NEGATIVE (NEGATIVE); RBC, URINE AUTO 0 /HPF (0-3); SPECIFIC GRAVITY URINE AUTO 1.012 (1.002-1.035); SQUAMOUS EPITHELIAL CELL UR AU 0 /HPF (0-6); UROBILINOGEN, URINE AUTO 0.2 mg/dL (0.0-2.0); WBC, URINE AUTO 0 /HPF (0-3)
== END ==
LOC: M LAB REF 15:41
PROVIDERS: ATTEND Nurse Practitioner Family
DX: N39.0 Urinary tract infection, site not specified (principal)

== ENCOUNTER → 2018-04-28 | Outpatient (CLI) | payer MEDICARE, OTHER ==
[~2018-04-28] MED LIST changes: +NITR-67 PO; -NITRO10CA PO
--- NOTE | 2018-04-28 13:32 | REP ---
LEFT KNEE, FOUR VIEWS: HISTORY: Pain. There is no acute fracture or dislocation. There is moderate narrowing of the medial knee joint space and minimal narrowing of the lateral and patellofemoral joint spaces. Osteophytes are present on the femur, tibia, and patella. Chondrocalcinosis is present. Multiple calcifications are present in the suprapatellar bursa consistent with synovial osteochondromatosis. Calcifications are present medial to the distal femur. This represents ligamentous or tendon calcification. IMPRESSION: 1. Degenerative change as described above. 2. Synovial osteochondromatosis. Electronically Signed by Donovan Echols MD 04/28/2018 01:36 P
== END ==
LOC: M WUC 11:47
PROVIDERS: ATTEND Nurse Practitioner Family
DX: D48.0 Neoplasm of uncertain behavior of bone and articular cartilage (principal)

== ENCOUNTER → 2018-11-24 | Outpatient (REF) | payer MEDICARE, OTHER ==
[~2018-11-24] MED LIST changes: -/PANT40TA PO; -ASCO25TA PO; -ASPI81CH PO; +ASPI81CH49 PO; +LISI-1046 PO; -LISI2.5T5 PO; +PROT1TAB2 PO; +VITA100018 PO; -VITA100072 PO; +VITA1TAB23 PO
[2018-11-24 13:15] LABS: ALBUMIN 3.7 GM/DL (3.2-5.2); BILIRUBIN,TOTAL 0.3 MG/DL (0.2-1.0); C REACTIVE PROTEIN QUANTITATIV 1.87 MG/DL (0.00-0.30); CALCIUM LEVEL 9.6 MG/DL (8.8-10.2); CREATININE FOR GFR 1.37 MG/DL (0.70-1.30); GLOMERULAR FILTRATION RATE 52.7 (>35); POTASSIUM SERUM 4.4 MEQ/L (3.5-5.1); TOTAL PROTEIN 6.6 GM/DL (6.4-8.2)
[2018-11-24 13:28] LABS: BASO # 0.1 10^3/uL (0.0-0.2); BASO % 0.5 % (0.0-1.0); EOS # 0.1 10^3/uL (0.0-0.5); EOS % 1.3 % (0.0-3.0); HEMATOCRIT 34.8 % (42.0-52.0); HEMOGLOBIN 11.1 g/dl (13.5-17.5); LYMPH % 9.4 % (24.0-44.0); MEAN CORPUSCULAR HEMOGLOBIN 30.6 pg (27.0-33.0); MEAN CORPUSCULAR HGB CONC 31.9 g/dl (32.0-36.5); MEAN CORPUSCULAR VOLUME 95.9 fl (80.0-96.0); MONO # 1.2 10^3/uL (0.0-0.8); MONO % 11.1 % (0.0-5.0); NEUTROPHILS # 8.5 10^3/uL (1.5-8.5); NEUTROPHILS % 77.1 % (36.0-66.0); PLATELET COUNT, AUTOMATED 220 10^3/uL (150-450); RED BLOOD COUNT 3.63 10^6/uL (4.30-6.10)
[2018-11-24 13:59] LABS: HEMOGLOBIN A1c 7.1 %
[2018-11-24 14:50] LABS: ERYTHROCYTE SEDIMENTATION RATE 63 mm/hr (0-20)
== END ==
LOC: M SFHCPLAZ 10:53
PROVIDERS: ATTEND Physician Assistant Medical
DX: E78.2 Mixed hyperlipidemia (principal); M06.9 Rheumatoid arthritis, unspecified; I11.0 Hypertensive heart disease with heart failure; I50.22 Chronic systolic (congestive) heart failure; E11.59 Type 2 diabetes mellitus with other circulatory complications

== ENCOUNTER → 2019-01-06 | Outpatient (REF) | payer MEDICARE, OTHER ==
[2019-01-06 14:36] LABS: ALBUMIN 3.8 GM/DL (3.2-5.2); ALT/SGPT 27 U/L (12-78); BILIRUBIN,TOTAL 0.3 MG/DL (0.2-1.0); BLOOD UREA NITROGEN 55 MG/DL (7-18); CALCIUM LEVEL 10.3 MG/DL (8.8-10.2); CARBON DIOXIDE LEVEL 31 MEQ/L (21-32); CHLORIDE LEVEL 96 MEQ/L (98-107); CREATININE FOR GFR 1.67 MG/DL (0.70-1.30); GLOMERULAR FILTRATION RATE 41.9 (>35); GLUCOSE, FASTING 173 MG/DL (70-100); NT-PRO BNP 176 PG/ML (<450); POTASSIUM SERUM 4.3 MEQ/L (3.5-5.1); SODIUM LEVEL 134 MEQ/L (136-145); TOTAL PROTEIN 7.2 GM/DL (6.4-8.2); VITAMIN B12 LEVEL > 2000 PG/ML (247-911)
== END ==
LOC: M SFHCPLAZ 11:19
PROVIDERS: ATTEND Physician Assistant Medical
DX: I50.22 Chronic systolic (congestive) heart failure (principal); E53.8 Deficiency of other specified B group vitamins; E78.2 Mixed hyperlipidemia
CPT/HCPCS: 36415; 80053; 82607; 83880; G0463

== ENCOUNTER → 2019-02-23 | Outpatient (CLI) | payer MEDICARE, BC, OTHER ==
--- NOTE | 2019-02-23 11:25 | REPPI ---
Five views lumbar spine: 02/23/2019. Indication: Low back pain. Lumbar radiculopathy. Comparison: None. Findings: There is no evidence of acute fracture, subluxation or dislocation. Vacuum disc phenomenon is noted at L4/L5. Disc space narrowing is present throughout most pronounced at L2/L3. Extensive disc and spur complexes are present. There is significant spinal canal and neural foraminal narrowing of the lower lumbar spine particularly at L4/L5 and L5/S1. Significant atherosclerotic disease is demonstrated. No lytic or blastic lesions of the visualized bones are present. There is no organomegaly. Bowel gas pattern is nonspecific without evidence of obstruction. Impression: No acute osseous injury of the lumbar spine. Extensive spondylosis. Electronically Signed by Josh Larose DO 02/23/2019 11:17 A
== END ==
LOC: M PLAIMG 10:42
PROVIDERS: ATTEND Physician Assistant Medical
DX: M51.36 Other intervertebral disc degeneration, lumbar region (principal); M54.30 Sciatica, unspecified side; Z23 Encounter for immunization; I50.22 Chronic systolic (congestive) heart failure; E11.59 Type 2 diabetes mellitus with other circulatory complications; E78.2 Mixed hyperlipidemia
CPT/HCPCS: 36415; 72110; 80061; 83036; 83880; 90682; G0008; G0463

== ENCOUNTER → 2019-02-23 | Outpatient (REF) | payer MEDICARE, OTHER ==
[2019-02-23 13:35] LABS: HEMOGLOBIN A1c 7.4 %
[2019-02-23 13:41] LABS: CHOLESTEROL RISK RATIO 5.333 (<5)
== END ==
LOC: M SFHCPLAZ 09:19
PROVIDERS: ATTEND Physician Assistant Medical
DX: I50.22 Chronic systolic (congestive) heart failure (principal); E11.59 Type 2 diabetes mellitus with other circulatory complications; E78.2 Mixed hyperlipidemia

== ENCOUNTER → 2019-02-24 | Outpatient (CLI) | payer MEDICARE, BC, OTHER ==
--- NOTE | 2019-03-01 13:30 | DEXA ---
AP SPINE L1 - L4 2.136 7.6 8.1 LT FEMUR TOTAL 1.147 1.1 1.7 LT NECK 0.961 -0.6 0.9 RT FEMUR TOTAL 1.194 1.5 2.0 RT NECK 1.013 -0.2 1.3 TOTAL BODY TOTAL OTHER COMMENTS: Normal bone densitometry of the spine and hips. FOLLOW-UP: Recommendation for the next bone density exam: 5 years. PARAMJIT
== END ==
LOC: M WHC 13:56
PROVIDERS: ATTEND Physician Assistant Medical
DX: M85.80 Other specified disorders of bone density and structure, unspecified site (principal)

== ENCOUNTER 2019-04-07 12:47 | Emergency (ER) | payer MEDICARE, BC, OTHER ==
[~2019-04-07] VITALS: Ht 167.6 cm; Wt 95.5 kg
[2019-04-07] MEDS ORDERED: FAMO40TA3 PO (13:04)
[2019-04-07] MEDS ORDERED: KP V1TAB2 PO (13:04)
--- NOTE | 2019-04-07 13:34 | REP ---
INDICATION: Trauma PROCEDURE: CT head without contrast COMPARISON STUDIES: No prior similar studies FINDINGS: No acute bleed or fracture. Ventricles, cisterns and sulci within normal limits. No mass effect or midline shift. No abnormal fluid collections. Paranasal sinuses and mastoid air cells are clear. IMPRESSION: No acute findings. No acute bleed or fracture. Electronically Signed by Ricky Barba MD 04/07/2019 01:26 P
--- NOTE | 2019-04-07 13:39 | REP ---
INDICATION: Trauma PROCEDURE: CT maxillofacial without contrast COMPARISON STUDIES: No prior similar studies FINDINGS: There is a blowout fracture at the floor of the right orbit with fat herniating through the fracture and into the area of the middle turbinate and the right ethmoid sinuses. The remainder of the paranasal sinuses are clear. The visualized dentition is unremarkable. There is no definite evidence of extraocular muscle entrapment. Globes appear unremarkable. Mastoid air cells are clear. There is a small fluid level in the right maxillary sinus. CONCLUSION: Blowout fracture of the right medial orbital floor. No evidence of extraocular muscle entrapment. Electronically Signed by Ricky Barba MD 04/07/2019 01:31 P
--- NOTE | 2019-04-07 13:45 | REP ---
INDICATION: Trauma PROCEDURE: CT cervical spine without contrast. Axial acquisitions with multiplanar re-formations. COMPARISON STUDIES: No prior similar studies FINDINGS: There is advanced degenerative change with loss of disc height, disc desiccation and anterior osteophytic spurring. No evidence of fracture or subluxation. Cranial vertebral junction appears unremarkable. There is degenerative narrowing of the cervical spinal canal. There is also degenerative narrowing of the cervical neural foramen. There is a calcified appearance to a disc of the C4-5 level narrows the canal to less than 8 mm. IMPRESSION: 1. No acute findings. Advanced degenerative changes. 2. There appears to be a calcified disc at the C4-5 level that appears to result in significant canal stenosis and potentially with cord impingement. MRI recommended for further evaluation as clinically indicated. Electronically Signed by Ricky Barba MD 04/07/2019 01:37 P
[2019-04-07] MEDS ORDERED: DOXY100C37 PO (14:02)
[2019-04-07 14:09] VITALS: BP 171/76
--- NOTE | 2019-04-08 13:16 | ED PDOC ---
Post-Departure Follow-Up [facility] faxed formal report of ct c spine for fu . Manjinder Tracey MD Apr 08, 2019 13:16
== END 2019-04-07 14:19 | disposition home or self-care (01) ==
LOC: M ED 12:47
DX: S02.31XA Fracture of orbital floor, right side, initial encounter for closed fracture (principal); S00.31XA Abrasion of nose, initial encounter; W19.XXXA Unspecified fall, initial encounter; Y92.099 Unspecified place in other non-institutional residence as the place of occurrence of the external cause; Y93.9 Activity, unspecified; Y99.9 Unspecified external cause status; M48.02 Spinal stenosis, cervical region; E11.9 Type 2 diabetes mellitus without complications; Z79.82 Long term (current) use of aspirin; Z79.4 Long term (current) use of insulin; Z79.899 Other long term (current) drug therapy; Z88.0 Allergy status to penicillin; Z88.1 Allergy status to other antibiotic agents

== ENCOUNTER → 2019-05-04 | Outpatient (REF) | payer MEDICARE, OTHER ==
[~2019-05-04] MED LIST changes: +DOXY100C37 PO; +FAMO40TA3 PO; +KP V1TAB2 PO
[2019-05-04 16:00] LABS: BASO % 0.4 % (0.0-1.0); EOS # 0.1 10^3/uL (0.0-0.5); HEMATOCRIT 33.2 % (42.0-52.0); HEMOGLOBIN 10.7 g/dl (13.5-17.5); LYMPH # 1.1 10^3/uL (1.5-5.0); LYMPH % 11.1 % (24.0-44.0); MEAN CORPUSCULAR HEMOGLOBIN 31.9 pg (27.0-33.0); MEAN CORPUSCULAR HGB CONC 32.2 g/dl (32.0-36.5); MEAN CORPUSCULAR VOLUME 99.1 fl (80.0-96.0); MONO # 1.2 10^3/uL (0.0-0.8); MONO % 11.6 % (0.0-5.0); NEUTROPHILS # 7.7 10^3/uL (1.5-8.5); NEUTROPHILS % 75.3 % (36.0-66.0); PLATELET COUNT, AUTOMATED 213 10^3/uL (150-450); RED BLOOD COUNT 3.35 10^6/uL (4.30-6.10); WHITE BLOOD COUNT 10.2 10^3/uL (4.0-10.0)
[2019-05-04 16:17] LABS: ALBUMIN 3.8 GM/DL (3.2-5.2); BILIRUBIN,TOTAL 0.4 MG/DL (0.2-1.0); CALCIUM LEVEL 9.9 MG/DL (8.8-10.2); CREATININE FOR GFR 1.45 MG/DL (0.70-1.30); GLOMERULAR FILTRATION RATE 49.2 (>35); MAGNESIUM LEVEL 1.9 MG/DL (1.8-2.4); POTASSIUM SERUM 4.3 MEQ/L (3.5-5.1)
== END ==
LOC: M SFHCPLAZ 15:10
PROVIDERS: ATTEND Physician Assistant Medical
DX: R25.2 Cramp and spasm (principal); S41.111A Laceration without foreign body of right upper arm, initial encounter; W19.XXXA Unspecified fall, initial encounter; Y92.9 Unspecified place or not applicable
CPT/HCPCS: 36415; 80053; 83735; 85025; G0463

== ENCOUNTER 2019-08-23 16:59 | Inpatient (IN) | payer MEDICARE, BC, OTHER ==
[~2019-08-23] VITALS: Ht 167.6 cm; Wt 91.3 kg
[~2019-08-23 16:59] MED LIST changes: -LISI-1046 PO; +LISI2.5T2 PO
[2019-08-23] MEDS ORDERED: HYDR-3713 (17:45)
[2019-08-23] MEDS ORDERED: SANT250O8 (17:45)
[2019-08-23] MEDS ORDERED: BACL5TAB2 (17:45)
[2019-08-23] MEDS ORDERED: PENT400T22 (17:45)
[2019-08-23 18:36] LABS: HEMATOCRIT 26.2 % (42.0-52.0); HEMOGLOBIN 8.4 g/dl (13.5-17.5); MEAN CORPUSCULAR HEMOGLOBIN 28.7 pg (27.0-33.0); MEAN CORPUSCULAR HGB CONC 32.1 g/dl (32.0-36.5); MEAN CORPUSCULAR VOLUME 89.4 fl (80.0-96.0); PLATELET COUNT, AUTOMATED 305 10^3/uL (150-450); RED BLOOD COUNT 2.93 10^6/uL (4.30-6.10); WHITE BLOOD COUNT 20.5 10^3/uL (4.0-10.0)
[2019-08-23 19:00] LABS: BLOOD UREA NITROGEN 36 MG/DL (7-18); CALCIUM LEVEL 8.8 MG/DL (8.8-10.2); CARBON DIOXIDE LEVEL 27 MEQ/L (21-32); CHLORIDE LEVEL 97 MEQ/L (98-107); CREATININE FOR GFR 1.75 MG/DL (0.70-1.30); GLOMERULAR FILTRATION RATE 39.6 (>35); GLUCOSE, FASTING 141 MG/DL (70-100); POTASSIUM SERUM 4.5 MEQ/L (3.5-5.1); SODIUM LEVEL 133 MEQ/L (136-145)
--- NOTE | 2019-08-23 19:12 | ECGEPIP ---
[facility] - ED Test Date: 2019-08-23 Pat Name: JET COTE Department: Room: - Gender: Male Overlock Operator: bonnie : 1935 Requested By: JET Weiss Order Number: [id number] Reading MD: Spencer Del Castillo Measurements Intervals Ransom Rate: 70 P: 8 MT: 230 QRS: -6 QRSD: 82 T: -2 QT: 375 QTc: 406 Interpretive Statements SINUS RHYTHM WITH FIRST DEGREE AV BLOCK VOLTAGE CRITERIA FOR LVH RATE CHANGE COMPARED TO 01/30/18 Electronically Signed on 08-23-2019 19:12:17 EDT by Spencer Del Castillo
[2019-08-23] MEDS ORDERED: NS 1,000 ML IV SCH (19:19)
[2019-08-23 19:59] LABS: ALBUMIN 2.7 GM/DL (3.2-5.2); ALT/SGPT 39 U/L (12-78); BILIRUBIN,DIRECT 0.2 MG/DL (0.0-0.2); BILIRUBIN,TOTAL 0.4 MG/DL (0.2-1.0); CK-MB VALUE MASS 8.3 NG/ML (<3.6); CPK CREATINE PHOSPHOKINASE 1120 U/L (39-308); FREE T4 1.45 NG/DL (0.76-1.46); MB/CK RELATIVE INDEX 0.74 (< OR =4); THYROID STIMULATING HORMONE 0.822 uIU/ML (0.358-3.740); TOTAL PROTEIN 6.4 GM/DL (6.4-8.2); TROPONIN I < 0.02 NG/ML (< 0.10)
[2019-08-23 20:11] LABS: ERYTHROCYTE SEDIMENTATION RATE 125 mm/hr (0-20)
[2019-08-23] MEDS: HumaLOG INSULIN (NovoLOG) PER UNIT SC SCH (21:00)
[2019-08-23] MEDS ORDERED: VANCOMYCIN HCL 1,000 MG, VIAL MATE ADAPTER 1 EACH in D5W 250 ML IV ONE ×2 (21:15→22:45)
[2019-08-23] MEDS ORDERED: FURO40TA2 PO (21:42)
[2019-08-23] MEDS ORDERED: OCUVTAB4 PO (21:42)
[2019-08-23] MEDS ORDERED: GLUCTAB6 PO (21:42)
[2019-08-23] MEDS ORDERED: PENT400T23 PO (21:42)
[2019-08-23] MEDS ORDERED: FAMO40TA3 PO (21:42)
[2019-08-23] MEDS ORDERED: MAGN400T2 PO (21:42)
[2019-08-23] MEDS ORDERED: HYDR-3713 PO (21:42)
[2019-08-23] MEDS ORDERED: LANTINJ4 SC (21:42)
[2019-08-23] MEDS ORDERED: VITA400C53 PO (21:42)
[2019-08-23] MEDS ORDERED: NOVOINJ3 SC (21:42)
[2019-08-23] MEDS ORDERED: CALC1TAB8 PO (21:42)
[2019-08-23] MEDS ORDERED: BACL5TAB2 PO (21:42)
[2019-08-23] MEDS ORDERED: LISI2.5T2 PO (21:42)
[2019-08-23] MEDS ORDERED: ATOR1TAB19 PO (21:42)
[2019-08-23] MEDS ORDERED: SANT250O8 TOP (21:42)
[2019-08-23] MEDS ORDERED: REFR0.5D8 OU (21:42)
[2019-08-23] MEDS ORDERED: VITA50005 PO (21:42)
[2019-08-23] MEDS ORDERED: ATEN25TA PO (21:42)
[2019-08-23] MEDS ORDERED: GABA-843 PO ×3 (21:42)
[2019-08-23] MEDS ORDERED: ASPI81TA26 PO (21:42)
[2019-08-23] MEDS ORDERED: CYAN2500 SL (21:42)
[2019-08-23] MEDS ORDERED: VITA-158 PO (21:42)
[2019-08-23] MEDS ORDERED: PRED25TA PO (21:42)
[2019-08-23] MEDS ORDERED: CEFEPIME HCL 2 GM in D5W MINI-BAG PLUS 50 ML IV ONE (22:00)
[2019-08-23] MEDS ORDERED: MAALOX 30 ML SUSP *UDC PO PRN (22:30)
[2019-08-23] MEDS ORDERED: DEXTROSE 50% 50 ML SYRINGE IV PRN (22:30)
[2019-08-23] MEDS ORDERED: ACETAMINOPHEN TAB 650MG DOSE (2X325MG) PO PRN (22:30)
[2019-08-23] MEDS ORDERED: GLUCOSE 4GM CHEW TABLET PO PRN (22:30)
[2019-08-23] MEDS ORDERED: MOM 30ML SUSPENSION UDC PO PRN (22:30)
[2019-08-23] MEDS ORDERED: GLUCAGON INJ 1MG VIAL SC PRN (22:30)
[2019-08-23] MEDS ORDERED: MIRALAX *UNIT DOSE* 17GM PACKET PO PRN (22:45)
[2019-08-23] MEDS ORDERED: BACLOFEN 5MG PER 1/2 TABLET PO PRN (22:45)
[2019-08-23] MEDS ORDERED: NORCO, ANEXSIA 5/325MG TABLET (HYDROcodone/ACETAMINOPHEN) PO PRN (22:45)
--- NOTE | 2019-08-23 22:50 | HPEPDOC ---
General Date of Admission Date of Service: Aug 23, 2019 Chief Complaint The patient is a 84-year-old male admitted with a reason for visit of General Illness. Source: Patient Exam Limitations: No limitations Timing/Duration: Other (3 days) Severity: Moderate Associated Symptoms: Fever History of Present Illness This is 83 years old white male with past medical history of type 2 diabetes mellitus, GERD, recurrent osteomyelitis, status post metatarsal amputation of both feet CHF, PAD, hyperlipidemia, rheumatoid arthritis, chronic anemia, presented to ED with chief complaints of nausea and chills since last few days. According patient's a lot 3 daily. Feeling tired, fatigued with chills and nausea, not feeling very well. He does not offer any complaints of chest pain, abdominal pain, vomiting or shortness of breath. Ghada is being admitted to inpatient with presumptive diagnoses of possible osteomyelitis of left foot Home Medications Scheduled Ascorbic Acid (Vitamin C) 500 Mg Tablet, 500 MG PO DAILY, (Reported) Aspirin (Aspirin EC) 81 Mg Tablet.dr, 81 MG PO QHS, (Reported) Atenolol (Atenolol) 25 Mg Tablet, 25 MG PO BID, (Reported) Atorvastatin Calcium (Atorvastatin Calcium) 10 Mg Tablet, 10 MG PO QHS, (Reported) Calcium Carbonate/Vitamin D3 (Calcium 600-Vit D3 400 Tablet) 1 Each Tablet, 1 TAB PO DAILY, (Reported) Carboxymethylcellulose Sodium (Refresh Tears) 15 Ml Drops, 1 DROP OU BID, (Reported) Collagenase Clostridium Hist. (Santyl) 30 Gm Oint...g., 1 APLCT TOP QHS, (Reported) APPLY TO LESIONS ON BOTH FEET Cyanocobalamin (Vitamin B-12) (Vitamin B-12) 2,500 Mcg Tab.subl, 2,500 MCG SL Q2D, (Reported) Ergocalciferol (Vitamin D2) (Vitamin D2) 50,000 Units Cap, 50,000 UNITS PO Q2WK, (Reported) EVERY OTHER THURSDAY Famotidine (Famotidine) 40 Mg Tablet, 40 MG PO BID, (Reported) Furosemide (Furosemide) 40 Mg Tablet, 40 MG PO DAILY, (Reported) Gabapentin (Gabapentin) 300 Mg Capsule, 600 MG PO QAM, (Reported) Gabapentin (Gabapentin) 300 Mg Capsule, 900 MG PO DAILY, (Reported) TAKES AT NOON Gabapentin (Gabapentin) 300 Mg Capsule, 300 MG PO QHS, (Reported) Gluc Rivas/Chondro Rivas A/Vit C/Mn (Glucosamine Chondroitin Tab) 1 Each Tablet, 1 TAB PO BID, (Reported) Insulin Aspart (Novolog Flexpen) 100 Unit/1 Ml Insuln.pen, 1 DOSE SC AC, (Reported) PER SLIDING SCALE Insulin Glargine,Hum.rec.anlog (Lantus Solostar) 100 Unit/1 Ml Insuln.pen, 30 UNITS SC QHS, (Reported) Lisinopril (Lisinopril) 2.5 Mg Tablet, 2.5 MG PO BID, (Reported) Magnesium Oxide (Magnesium Oxide) 400 Mg Tablet, 400 MG PO BID, (Reported) Pentoxifylline (Pentoxifylline) 400 Mg Tablet.er, 400 MG PO BID, (Reported) Prednisone (Prednisone) 2.5 Mg Tablet, 2.5 MG PO BID, (Reported) Vit A/Vit C/Vit E/Zinc/Copper (Preservision Areds Tablet) 1 Each Tablet, 1 TAB PO DAILY, (Reported) Vitamin E (Vitamin E) 400 Unit Capsule, 400 UNIT PO DAILY, (Reported) Scheduled PRN Baclofen (Baclofen) 5 Mg Tablet, 5 MG PO TID PRN for MUSCLE SPASMS, (Reported) Hydrocodone/Acetaminophen (Hydrocodone-Acetamin 5-325 mg) 1 Each Tablet, 1 TAB PO Q6H PRN for PAIN, (Reported) MDD 4 Allergies Coded Allergies: Penicillins (Verified Allergy, Severe, ANAPHYLAXIS, 08/23/19) erythromycin base (Verified Allergy, Severe, ANAPHYLAXIS, 08/23/19) Past Medical History Medical History Diabetes mellitus type 2, GERD, recurrent osteomyelitis, status post transmetatarsal amputation of both feet, MSSA abscess of left foot, status post I&D, left shoulder tendon rupture, hypertension, obstructive sleep apnea, precancerous cells removed, CHF, PAD, hyperlipidemia, osteoarthritis, chronic anemia, fungal infection of foot Surgical History , Cholecystectomy, left knee surgery, skin biopsy, shoulder, right shoulder tendon repair, arteriographically toe amputation both feet Family History Family history reviewed. Father had a diabetes mellitus Social History * Smoker: former Smoker Alcohol: Denies Drugs: denies A-FIB/CHADSVASC A-FIB History Current/History of A-Fib/PAF?: No Review of Systems Constitutional: Reports: Chills, Fever Eyes: Denies: Pain, Vision change, Conjunctivae inflammation, Eyelid inflammation, Redness, Other ENT: Denies: Head Aches, Ear Pain, Dysphagia, Sinus Congestion, Post Nasal Drip, Sore Throat, Epistaxis, Other Symptoms Skin: Denies: Rash, Lesions, Jaundice, Bruising, Itching, Dry, Breakdown, Nail Changes, Other Pulmonary: Denies: Dyspnea, Cough, Pleuritic Chest Pain, Other Symptoms Cardiovascular: Denies: Chest Pain, Palpitations, Orthopnea, Paroxysmal Noc. Dyspnea, Edema, Lt Headedness, Other Symptoms Gastrointestinal: Denies: Nausea, Vomiting, Abdominal Pain, Diarrhea, Constipation, Melena, Hematochezia, Other Symptoms Genitourinary: Denies: Dysuria, Frequency, Incontinence, Hematuria, Retention, Other Symptoms Hematologic: Denies: Bruising, Bleeding Excessively, Petecchia, Purpura, Enlarged Lymph Nodes, Other Hematologic Endocrine: Denies: Polydipsia, Polyphagia, Polyuria, Heat Intolerance, Cold Intolerance, Other Endocrine Sx Musculoskeletal: Denies: Neck Pain, Back Pain, Shoulder Pain, Arm Pain, Hand Pain, Leg Pain, Foot Pain, Joint Pain, Muscle Pain, Spasms, Other Symptoms Neurological: Denies: Weakness, Numbness, Incoordination, Change in speech, Confusion, Seizures, Other Symptoms Psych: Denies: Mood Normal, Anxiety, Depression, Memory Issues, Thoughts of Self Harm, Anger, Thoughts of Harming Other, Other Psych Physical Examination General Exam: Positive: Alert, Cooperative Eye Exam: Positive: PERRLA, Conjunctiva & lids normal ENT Exam: Positive: Atraumatic, Mucous membr. moist/pink Neck Exam: Positive: Supple Chest Exam: Positive: Clear to auscultation Heart Exam: Positive: Rate Normal, Normal S1, Normal S2 Abdomen Exam: Positive: Normal bowel sounds Extremity Exam: Positive: Normal pulses, Other (, increasing edema bilateral lower extremities. Also some tenderness at the left foot) Skin Exam: Positive: Nl turgor and temperature Neuro Exam: Positive: Strength at 5/5 X4 ext, Cranial Nerves 3-12 NL Psych Exam: Positive: Mood NL, Oriented x 3 Vital Signs Vital Signs Date Time Temp Pulse Resp B/P (MAP) Pulse Ox O2 Delivery O2 Flow Rate FiO2 08/23/19 21:45 73 145/65 (91) 96 08/23/19 21:30 17 Room Air 08/23/19 17:21 99.2 Laboratory Data Labs 24H Laboratory Tests 2 08/23/19 18:12: Nucleated Red Blood Cells % (auto) 0.0, Erythrocyte Sedimentation Rate 125H, Anion Gap 9, Glomerular Filtration Rate 39.6, Calcium Level 8.8, Total Bilirubin 0.4, Direct Bilirubin 0.2, Aspartate Amino Transf (AST/SGOT) 57H, Alanine Aminotransferase (ALT/SGPT) 39, Alkaline Phosphatase 74, Total Creatine Kinase 1120H, Creatine Kinase MB 8.3H, Creatine Kinase MB Relative Index 0.74, Troponin I < 0.02, C-Reactive Protein, Quantitative 18.20H, Total Protein 6.4, Albumin 2.7L, Albumin/Globulin Ratio 0.7, Thyroid Stimulating Hormone (TSH) 0.822, Free Thyroxine 1.45 CBC/BMP Laboratory Tests 08/23/19 18:12 Microbiology Microbiology 08/23/19 Blood Culture, Received Pending 08/23/19 Blood Culture, Received Pending Problems (1) Cellulitis of left foot Status: Acute Problem Text: 84 years old white male with multiple medical problems including recurrent osteomyelitis and diabetes mellitus, admitted with fever and chills, most likely secondary to recurrent osteomyelitis of left foot versus cellulitis of left foot Chest x-ray and foot x-ray done but reports are still pending BC count of 20.5, hemoglobin 8.4, platelets 305, electrolytes normal. CRP is 18.2, BUN 36, and creatinine 1.[address] [facility] Patient received cefepime and Vanco in ED and CONTINUE the same Podiatry consult with Dr. Smalls tear has been called as he has seen the pat ient in the past MRI of the left foot also has been ordered PT eval Consistent carbohydrate diet Activity as tolerated DVT prophylaxis with heparin Continue all home meds (2) Diabetes mellitus Status: Chronic Problem Text: Fingerstick blood sugar every before meals and at bedtime with coverage Continue all home insulin dosage (3) Hyperlipemia Status: Chronic Problem Text: Continue home meds (4) HTN (hypertension) Status: Chronic Problem Text: Under control Continue home meds Plan / VTE VTE Prophylaxis Ordered?: Yes AMI BECK MD Aug 23, 2019 22:50
[2019-08-23 23:25] VITALS: BP 117/46
[2019-08-24] MEDS: LEVEMIR (INSULIN DETEMIR) 1 UNITS/0.01ML SC SCH ×2 (00:31→21:27)
[2019-08-24] MEDS: ASPIRIN 81 MG ENTERIC TAB PO SCH ×2 (00:48→21:28)
[2019-08-24] MEDS: LISINOPRIL *2.5 MG* TAB PO SCH ×3 (00:48→21:28)
[2019-08-24] MEDS: MAGNESIUM OXIDE 400 MG TAB (MAG-OX) PO SCH ×3 (00:48→21:28)
[2019-08-24] MEDS: predniSONE 2.5 MG TAB PO SCH ×3 (00:49→21:28)
[2019-08-24] MEDS: GABAPENTIN 300 MG CAP PO SCH ×3 (00:49→21:28)
[2019-08-24] MEDS: SANTYL OINT 30GM TOP SCH ×2 (00:49→21:29)
[2019-08-24] MEDS: PENTOXIFYLLINE 400 MG TAB PO SCH ×3 (00:49→21:28)
[2019-08-24] MEDS: ATORVASTATIN 10 MG TAB PO SCH ×2 (00:49→21:28)
[2019-08-24] MEDS: atenoloL 25 MG TAB PO SCH ×3 (00:49→21:29)
[2019-08-24 06:00] VITALS: BP 121/45
[2019-08-24 06:49] LABS: HEMATOCRIT 26.5 % (42.0-52.0); HEMOGLOBIN 8.7 g/dl (13.5-17.5); MEAN CORPUSCULAR HEMOGLOBIN 29.2 pg (27.0-33.0); MEAN CORPUSCULAR HGB CONC 32.8 g/dl (32.0-36.5); MEAN CORPUSCULAR VOLUME 88.9 fl (80.0-96.0); PLATELET COUNT, AUTOMATED 290 10^3/uL (150-450); RED BLOOD COUNT 2.98 10^6/uL (4.30-6.10); WHITE BLOOD COUNT 16.6 10^3/uL (4.0-10.0)
[2019-08-24 07:21] LABS: ALBUMIN 2.2 GM/DL (3.2-5.2); BILIRUBIN,TOTAL 0.3 MG/DL (0.2-1.0); CALCIUM LEVEL 8.2 MG/DL (8.8-10.2); CREATININE FOR GFR 1.25 MG/DL (0.70-1.30); GLOMERULAR FILTRATION RATE 58.4 (>35); MAGNESIUM LEVEL 2.3 MG/DL (1.8-2.4); POTASSIUM SERUM 4.2 MEQ/L (3.5-5.1); TOTAL PROTEIN 5.6 GM/DL (6.4-8.2)
[2019-08-24] MEDS: HumaLOG INSULIN (NovoLOG) PER UNIT SC SCH ×4 (07:30→21:00)
[2019-08-24] MEDS: OCUVITE 1 TAB PO SCH (08:39)
[2019-08-24] MEDS: ASCORBIC ACID 500 MG TAB PO SCH (08:39)
[2019-08-24] MEDS: FAMOTIDINE 20 MG TAB PO SCH (08:40)
[2019-08-24] MEDS: FUROSEMIDE 40 MG TAB PO SCH (08:40)
[2019-08-24] MEDS: HEPARIN SOD (PORCINE) 5000UNITS/ML VIAL (J1644 PER 1000UNITS) SC SCH ×2 (08:41→21:27)
[2019-08-24] MEDS: DOCUSATE SODIUM 100 MG CAP PO SCH ×2 (08:41→21:28)
[2019-08-24] MEDS ORDERED: PREVNAR 13 VACCINE SYRINGE (CPT CODE:90670) IM ONE (09:00)
[2019-08-24] MEDS ORDERED: GABAPENTIN 300 MG CAP PO SCH ×2 (09:00)
--- NOTE | 2019-08-24 09:46 | REP ---
CHEST SINGLE VIEW: Single view of the chest is performed. COMPARISON: 01/30/2018. There are bibasilar fibroatelectatic changes which appear stable. The heart appears mildly enlarged. There is calcification and tortuosity of the thoracic aorta. The mediastinal silhouette is unchanged. IMPRESSION: Chronic changes with no definite acute infiltrate. Electronically Signed by Ky Andersen MD 08/24/2019 12:39 P
--- NOTE | 2019-08-24 10:02 | REP ---
LEFT FOOT, FOUR VIEWS: COMPARISON: 05/24/2011 There has been prior amputation at the level of the proximal and mid metatarsals. This is unchanged when compared to the prior study. I do not see evidence of acute fracture or dislocation. I do not see evidence of acute osseous or cortical destruction or periosteal reaction. Scattered vascular calcifications are seen in the soft tissues. There is mild calcaneal spurring both posteriorly and inferiorly. Electronically Signed by Ky Andersen MD 08/24/2019 12:55 P
--- NOTE | 2019-08-24 11:10 | IPNPDOC ---
Date Seen The patient was seen on 08/24/19. Progress Note SUBJECTIVE: Patient is a 84-year-old white male with recurrent osteomyelitiss/p transmetatarsal amputation of b/l feet and RA presented to [facility] d/t fever or chills, noted to have left LE swelling with 3 open lesion in b/l feet with 2 on right and 1 on left. Pt denies any fever, chills, nausea, vomiting, or pain in either feet. Pt reported sensation in b/l feet are intact and that he checks his feet daily. Pt reported that he was told he has murmur since childhood, denies any chest pain, palpitation, or dyspnea OBJECTIVE PHYSICAL EXAMINATION: VITAL SIGNS: Please see below. GENERAL APPEARANCE: Alert and awake, not in acute distress HEENT: Head normocephalic, atraumatic, b/l pupil equal and round. Mild ecchymosis in right neck lateral aspect RESPIRATORY: CTA b/l, no rales, wheezing, or rhonchi CARDIOVASCULAR: RRR, normal S1 and S2, diastolic murmur aus in aortic and pulmonic region ABDOMEN: Soft, no guarding, no abdominal pain. EXTREMITIES: Left LE erythema and mild swelling. B/l metatarsal amputation. 2 opening draining wound in right foot and 1 opening draining wound in left foot each about 1.5cm in diameter. The one in right foot appears to involve more depth. NEUROLOGICAL: Memory and cognitive function grossly stable. PSYCHIATRIC: Mood appro to situation LABORATORY DATA, IMAGING STUDIES, MICROBIOLOGY: Please see below. DVT prophylaxis ordered?: Yes ASSESSMENT AND PLAN: 84 years old white male with multiple medical problems including recurrent osteomyelitis and diabetes mellitus, admitted with fever and chills, likely 2/2 left foot cellulitis with possible left foot osteomyelitis. PROBLEMS: 1. Cellulitis of left foot with possible osteomyelitis. Hx of recurrent osteomyelitis s/p transmetatarsal amputation of b/l feet. Mild LE swelling and erythema with a open lesion roughly 1.5cm in diameter. Cont Vanco and Cefepime. MRI of left foot pending. PT eval. Activity as tolerated. Podiatry with Dr. Smalls following. MRI left foot pending. Cont wound care. Vitals as scheduled. 2. Open ulcers of b/l feet. 2 open ulcers around 1.5cm in diameter that appeared to be chronic in right foot in addition one open lesion on left foot. Cont wound care. 2. Diabetes mellitus, insulin dependent. Cont consistent carbohydrate diet. Fingerstick blood sugar every before meals and at bedtime with coverage. Continue home insulin dosage. Blood sugar roiughly stable 3. Hyperlipemia. Continue home meds statin 4. HTN. Vital stable. Continue lisinopril and lasix. Vitals as scheduled 5. Diastolic heart failure. PMH of CHF listed on H&P. Echo 01/07 showed grade 2 diastolic dysfunction. No signs of fluid overload or symptoms of heart failure at this time . Left LE swelling d/t cellulitis with possible osteomyelitis. Pt's home med includes lasix 40mg QD. Cont lasix 40mg QD. DISPOSITION: Left LE cellulitis with possible left foot osteomyelitis pending podiatry eval Attending attestation: I evaluated and examined the patient in person; I discussed the care with Resident in detail and agree with the plan above. VS, I&O, 24H, Fishbone Vital Signs/I&O Vital Signs Date Time Temp Pulse Resp B/P (MAP) Pulse Ox O2 Delivery O2 Flow Rate FiO2 08/24/19 08:41 118/48 08/24/19 08:40 84 08/24/19 08:17 97.7 08/24/19 06:00 19 89 NIPPV (BIPAP/CPAP) I&O- Last 24 Hours up to 6 AM 08/24/19 06:00 Intake Total 1190 ml Output Total 0 ml Balance 1190 ml Laboratory Data 24H LABS Laboratory Tests 2 08/23/19 18:12: Nucleated Red Blood Cells % (auto) 0.0, Erythrocyte Sedimentation Rate 125H, Anion Gap 9, Glomerular Filtration Rate 39.6, Calcium Level 8.8, Total Bilirubin 0.4, Direct Bilirubin 0.2, Aspartate Amino Transf (AST/SGOT) 57H, Alanine Aminotransferase (ALT/SGPT) 39, Alkaline Phosphatase 74, Total Creatine Kinase 1120H, Creatine Kinase MB 8.3H, Creatine Kinase MB Relative Index 0.74, Troponin I < 0.02, C-Reactive Protein, Quantitative 18.20H, Total Protein 6.4, Albumin 2.7L, Albumin/Globulin Ratio 0.7, Thyroid Stimulating Hormone (TSH) 0.822, Free Thyroxine 1.45 08/23/19 22:45: Bedside Glucose (Misc Panel) 176H 08/24/19 06:38: Nucleated Red Blood Cells % (auto) 0.0, Anion Gap 10, Glomerular Filtration Rate 58.4, Calcium Level 8.2L, Total Bilirubin 0.3, Aspartate Amino Transf (AST/SGOT) 53H, Alanine Aminotransferase (ALT/SGPT) 37, Alkaline Phosphatase 64, Total Protein 5.6L, Albumin 2.2L, Albumin/Globulin Ratio 0.6, Magnesium Level 2.3 CBC/BMP Laboratory Tests 08/23/19 18:12 08/24/19 06:38 Microbiology Microbiology 08/23/19 Blood Culture, Received Pending 08/23/19 Blood Culture, Received Pending RADHA EDWARDS DO Aug 24, 2019 11:10 ABEL MCKEON MD Aug 29, 2019 08:21
[2019-08-24 14:45] VITALS: BP 129/48
--- NOTE | 2019-08-24 15:28 | REP ---
MRI LEFT FOOT: TECHNIQUE: Multiple sequences obtained in the axial, coronal and sagittal planes without the use of intravenous contrast. There is evidence of prior amputation of the proximal and mid metatarsals as seen on plain films 08/23/2019. There appears to be a soft tissue wound at the distal end of the remaining foot laterally. There is mild ill-defined subcutaneous edema and fluid at that location. At the distal end of the remaining 4th and 5th metatarsal shafts, there is some very mild marrow edema at both locations. I cannot exclude mild osteomyelitis at those locations. Otherwise no suspicious abnormal bone marrow signal is seen elsewhere in the left foot. There is mild fluid surrounding the flexor tendons of the foot. There is diffuse edema throughout the soft tissues of the foot. IMPRESSION: There appears to be a soft tissue wound involving the skin with apparent ulceration laterally at the distal aspect of the remaining foot. Very mild edema is seen in the distal end of the remaining 4th and 5th metatarsal shafts and I cannot exclude mild osteomyelitis at those locations. There is mild ill-defined fluid in the adjacent soft tissues. There is also mild fluid surrounding the flexor tendons in the plantar aspect of the foot. Electronically Signed by Ky Andersen MD 08/25/2019 07:14 P
[2019-08-24] MEDS ORDERED: VANCOMYCIN HCL 1,000 MG, VIAL MATE ADAPTER 1 EACH in D5W 250 ML IV SCH (21:00)
[2019-08-24 22:00] VITALS: BP 129/50
[2019-08-24] MEDS ORDERED: CEFEPIME HCL 2 GM in D5W MINI-BAG PLUS 50 ML IV SCH (23:00)
[2019-08-25 06:00] VITALS: BP 130/64
[2019-08-25] MEDS: HumaLOG INSULIN (NovoLOG) PER UNIT SC SCH ×2 (07:30→12:00)
[2019-08-25] MEDS: MAGNESIUM OXIDE 400 MG TAB (MAG-OX) PO SCH (08:44)
[2019-08-25 08:45] VITALS: BP 130/64
[2019-08-25] MEDS: DOCUSATE SODIUM 100 MG CAP PO SCH (08:45)
[2019-08-25] MEDS: atenoloL 25 MG TAB PO SCH (08:45)
[2019-08-25] MEDS: OCUVITE 1 TAB PO SCH (08:45)
[2019-08-25] MEDS: LISINOPRIL *2.5 MG* TAB PO SCH (08:45)
[2019-08-25] MEDS: ASCORBIC ACID 500 MG TAB PO SCH (08:45)
[2019-08-25] MEDS: FAMOTIDINE 20 MG TAB PO SCH (08:45)
[2019-08-25] MEDS: PENTOXIFYLLINE 400 MG TAB PO SCH (08:46)
[2019-08-25] MEDS: FUROSEMIDE 40 MG TAB PO SCH (08:46)
[2019-08-25] MEDS: GABAPENTIN 300 MG CAP PO SCH (08:46)
[2019-08-25] MEDS: predniSONE 2.5 MG TAB PO SCH (08:46)
[2019-08-25] MEDS: HEPARIN SOD (PORCINE) 5000UNITS/ML VIAL (J1644 PER 1000UNITS) SC SCH (08:50)
[2019-08-25] MEDS ORDERED: MEROPENEM INJ 500 MG in IV 1 EA IV SCH (09:45)
[2019-08-25] MEDS ORDERED: MEROPENEM INJ 1 GM in IV 1 EA IV SCH (11:00)
[2019-08-25] MEDS ORDERED: KEFL500C17 PO (12:35)
--- NOTE | 2019-08-25 18:25 | DS.PDOC ---
Discharge Summary General Date of Admission Aug 23, 2019 at 22:24 Date of Discharge 08/25/2019 Discharge Summary PROCEDURES PERFORMED DURING STAY: Left foot wound debridement ADMITTING DIAGNOSES: 1. Cellulitis of left foot 2. Diabetes mellitus 3. Hyperlipemia 4. HTN DISCHARGE DIAGNOSES: 1. Left lower extremity cellulitis 2. Left foot osteitis 3. Open ulcers of b/l feet, chronic 4. Diabetes mellitus 5. Hyperlipemia 6. HTN 7. Hx of transmetatarsal amputation b/l 8. Diastolic murmur reported to be chronic COMPLICATIONS/CHIEF COMPLAINT: Cellulitis Of Left Foot. HISTORY OF PRESENT ILLNESS: SUBJECTIVE: Patient is a 84 yo white male with recurrent osteomyelitis s/p transmetatarsal amputation of b/l feet and RA presented to [facility] d/t fever or chills. Pt reported sensation in b/l feet are intact and that he checks his feet daily. HOSPITAL COURSE: Pt was noted to have left LE swelling with 3 open lesion in b/l feet with 2 on right and 1 on left each around 1.5cm in diameter. Pt was admitted to hospital and was started on Vanco and Cefepime. Pt reported that he was told that he had murmur since childhood and denied any chest pain, palpitation, or dyspnea on 08/24/2019 and 08/25/2019. He cont to have fever around 100.6F well controlled with meds. He was switched to Vanco and Meropenem for anaerobe coverage. Pt underwent wound debridement and anaerobe cx and wound cx was sent. He was subsequently determined to be ready to be discharged to ARU with continuing abx coverage. Discussed with Dr. Smalls and it was thought the likelihood of osteomyelitis of left foot is lower, and it is more possible that pt has osteitis. On the day of discharge, pt cont to report no subjective feeling of fever, chills, nausea, or vomiting; some pain in b/l feet. His abx was changed to Keflex for left LE cellulitis coverage DISCHARGE MEDICATIONS: Please see below. ALLERGIES: Please see below. PHYSICAL EXAMINATION: VITAL SIGNS: Please see below. GENERAL APPEARANCE: Alert and awake, not in acute distress HEENT: Head normocephalic, atraumatic, b/l pupil equal and round. Mild e cchymosis in right neck lateral aspect RESPIRATORY: CTA b/l, no rales, wheezing, or rhonchi CARDIOVASCULAR: RRR, normal S1 and S2, diastolic murmur aus in aortic and pulmonic region ABDOMEN: Soft, no guarding, no abdominal pain. EXTREMITIES: Left LE erythema and mild swelling. B/l metatarsal amputation. 2 opening draining wound in right foot and 1 opening draining wound in left foot each about 1.5cm in diameter. The one in right foot appears to involve more depth. NEUROLOGICAL: Memory and cognitive function grossly stable. PSYCHIATRIC: Mood appro to situation LABORATORY DATA: Please see below. IMAGING: Left foot xray 08/23/2019 prior amputation at the level of the proximal and mid metatarsals, unchanged compared to prior. Scattered vascular calcifications are seen in the soft tissues. Mild calcaneal spurring both posteriorly and inferiorly. CXR 08/23/2019 showed chronic changes with no definite acute infiltrate MRI left foot 08/23/2019 showed soft tissue wound involving the skin with apparent ulceration laterally at the distal aspect of the remaining foot. Very mild edema is seen in the distal end of the remaining 4th and 5th metatarsal shafts; mild osteomyelitis cannot be excluded. Mild ill-defined fluid in adjacent soft tissues. Mild fluid surrounding the flexor tendons in the plantar aspect of the foot. PROGNOSIS: [Fair] ACTIVITY: [As tolerated]. DIET: [2g Na diet] DISPOSITION: 70 Xfer Other. DISCHARGE PLAN AND INSTRUCTIONS: 1. Discharge to ARU 2. Cont wound care with antibiotic coverage for 2 weeks or further pending clinical improvement, podiatry following ITEMS TO FOLLOWUP ON ON OUTPATIENT: 1. Bilateral foot wound 2. Left LE cellulitis 3. Left foot osteitis 4. Chronic heart murmur DISCHARGE CONDITION: [Stable]. TIME SPENT ON DISCHARGE: Greater than [32] minutes. Attending attestation: I evaluated and examined the patient in person; I discussed the care with Resident in detail and agree with the plan above. Vital Signs/I&Os Vital Signs Date Time Temp Pulse Resp B/P (MAP) Pulse Ox O2 Delivery O2 Flow Rate FiO2 08/25/19 08:45 130/64 08/25/19 08:45 77 08/25/19 06:00 99.6 18 97 Room Air I&O- Last 24 Hours up to 6 AM 08/25/19 06:00 Intake Total 450 ml Output Total 700 ml Balance -250 ml Laboratory Data Labs 24H Laboratory Tests 2 08/24/19 20:18: Bedside Glucose (Misc Panel) 127H 08/25/19 06:12: Bedside Glucose (Misc Panel) 106 08/25/19 11:36: Bedside Glucose (Misc Panel) 126H FSBS Laboratory Tests Test 08/24/19 20:18 08/25/19 06:12 08/25/19 11:36 Range/Units Bedside Glucose (Misc Panel) 127 106 126 83-110 MG/DL Microbiology Microbiology 08/25/19 Wound Culture, Received Pending 08/25/19 Anaerobic Culture, Received Pending 08/23/19 Blood Culture - Preliminary, Resulted No growth after 24 hours . All specim... 08/23/19 Blood Culture - Preliminary, Resulted No growth after 24 hours . All specim... Discharge Medications Scheduled Ascorbic Acid (Vitamin C) 500 Mg Tablet, 500 MG PO DAILY, (Reported) Aspirin (Aspirin EC) 81 Mg Tablet.dr, 81 MG PO QHS, (Reported) Atenolol (Atenolol) 25 Mg Tablet, 25 MG PO BID, (Reported) Atorvastatin Calcium (Atorvastatin Calcium) 10 Mg Tablet, 10 MG PO QHS, (Reported) Calcium Carbonate/Vitamin D3 (Calcium 600-Vit D3 400 Tablet) 1 Each Tablet, 1 TAB PO DAILY, (Reported) Carboxymethylcellulose Sodium (Refresh Tears) 15 Ml Drops, 1 DROP OU BID, (Reported) Cephalexin (Keflex) 500 Mg Capsule, 500 MG PO TID Collagenase Clostridium Hist. (Santyl) 30 Gm Oint...g., 1 APLCT TOP QHS, (Reported) APPLY TO LESIONS ON BOTH FEET Cyanocobalamin (Vitamin B-12) (Vitamin B-12) 2,500 Mcg Tab.subl, 2,500 MCG SL Q2D, (Reported) Ergocalciferol (Vitamin D2) (Vitamin D2) 50,000 Units Cap, 50,000 UNITS PO Q2WK, (Reported) EVERY OTHER THURSDAY Famotidine (Famotidine) 40 Mg Tablet, 40 MG PO BID, (Reported) Furosemide (Furosemide) 40 Mg Tablet, 40 MG PO DAILY, (Reported) Gabapentin (Gabapentin) 300 Mg Capsule, 600 MG PO QAM, (Reported) Gabapentin (Gabapentin) 300 Mg Capsule, 900 MG PO DAILY, (Reported) TAKES AT NOON Gabapentin (Gabapentin) 300 Mg Capsule, 300 MG PO QHS, (Reported) Gluc Rivas/Chondro Rivas A/Vit C/Mn (Glucosamine Chondroitin Tab) 1 Each Tablet, 1 TAB PO BID, (Reported) Insulin Aspart (Novolog Flexpen) 100 Unit/1 Ml Insuln.pen, 1 DOSE SC AC, (Reported) PER SLIDING SCALE Insulin Glargine,Hum.rec.anlog (Lantus Solostar) 100 Unit/1 Ml Insuln.pen, 30 UNITS SC QHS, (Reported) Lisinopril (Lisinopril) 2.5 Mg Tablet, 2.5 MG PO BID, (Reported) Magnesium Oxide (Magnesium Oxide) 400 Mg Tablet, 400 MG PO BID, (Reported) Pentoxifylline (Pentoxifylline) 400 Mg Tablet.er, 400 MG PO BID, (Reported) Prednisone (Prednisone) 2.5 Mg Tablet, 2.5 MG PO BID, (Reported) Vit A/Vit C/Vit E/Zinc/Copper (Preservision Areds Tablet) 1 Each Tablet, 1 TAB PO DAILY, (Reported) Vitamin E (Vitamin E) 400 Unit Capsule, 400 UNIT PO DAILY, (Reported) Scheduled PRN Baclofen (Baclofen) 5 Mg Tablet, 5 MG PO TID PRN for MUSCLE SPASMS, (Reported) Hydrocodone/Acetaminophen (Hydrocodone-Acetamin 5-325 mg) 1 Each Tablet, 1 TAB PO Q6H PRN for PAIN, (Reported) MDD 4 Allergies Coded Allergies: Penicillins (Verified Allergy, Severe, ANAPHYLAXIS, 08/23/19) erythromycin base (Verified Allergy, Severe, ANAPHYLAXIS, 08/23/19) GME ATTESTATION GME ATTESTATION My faculty preceptor for this patient encounter was physically present during the encounter and was fully available. All aspects of the patient interview, examination, medical decision making process, and medical care plan development were reviewed and approved by the faculty preceptor. The faculty preceptor is aware and concurs with the plan as stated in the body of this note and will attest to such by his/her cosignature. RADHA EDWARDS DO Aug 25, 2019 18:25 ABEL MCKEON MD Aug 29, 2019 08:25
--- NOTE | 2019-08-26 05:49 | CR ---
DATE OF CONSULTATION: 08/25/2019 at approximately 7:30 a.m. CHIEF COMPLAINT: 84-year-old male seen for evaluation of ulcerations on the plantar aspect of both feet. Patient has had a history of bilateral transmetatarsal amputations. The patient is well known to me. Patient has not been seen in some time. States that he noticed an ulcer several months ago; however, with the COVID epidemic, did not make an appointment to be seen in my office. States that ulcers were worsening and was subsequently admitted to the hospital. HOME MEDICATIONS: - vitamin C 500 mg by mouth daily - aspirin 81 mg by mouth nightly - atenolol 25 mg by mouth twice a day - atorvastatin 10 mg by mouth nightly - calcium carbonate/D3 one by mouth daily - Refresh Tears one drop both eyes twice a day - collagenase ulcerations both feet - famotidine 40 mg by mouth twice a day - furosemide 40 mg by mouth daily - gabapentin 300 mg capsules, 600 mg every morning and 900 mg by mouth daily, 300 mg by mouth nightly - chondroitin sulfate/glucosamine one tablet by mouth twice a day - NovoLog dosing sliding scale - lisinopril 25 mg by mouth twice a day - magnesium oxide 400 mg by mouth twice a day - pentoxifylline 400 mg by mouth twice a day - prednisone 2.5 mg by mouth twice a day - vitamin E 400 units daily ALLERGIES: To PENICILLIN and ERYTHROMYCIN. PAST MEDICAL HISTORY: 1. Diabetes mellitus type 2. 2. Gastroesophageal reflux disease. 3. Chronic osteomyelitis with foot ulcerations, subsequent transmetatarsal amputation. 4. Left shoulder tendon rupture. 5. Hypertension. 6. Obstructive sleep apnea. 7. Hyperlipidemia. 8. Congestive heart failure. 9. Peripheral artery disease, subsequent reconstructions. 10. Osteoarthritis. 11. Chronic anemia. SURGICAL HISTORY: 1. Transmetatarsal amputations bilateral. 2. Cholecystectomy. 3. Left knee surgery. 4. Skin biopsy shoulder. 5. Tendon tear right shoulder. PHYSICAL EXAMINATION: Reveals an alert, well-orientated 84-year-old male in no acute distress. Evaluation of his foot reveals Optifoam dressings in place that we removed today. Patient has an ulceration on the distal aspect of the transmetatarsal amputation site on the medial site of his right foot and on the medial heel. Pre-debridement measurements on the right distal lesion are 17 mm x 10 mm x 1 mm in depth with no hyperkeratotic rim. Medial right heel measures 33 mm x 11 mm x 1 mm in depth with no rim. Yellow to red granulation tissue is noted. No surrounding erythema, discharge, or signs of infection on the right foot. Dorsalis pedis and posterior tibial pulses are not palpable bilateral. Evaluation of the left foot reveals two ulcerations, one in the plantar aspect and on on the medial heel. The plantar aspect of foot measuring 21 mm x 5 mm x 1 mm in depth with a yellow granulation tissue base with no surrounding erythema or discharge. The lateral distal ulceration, of the left foot, however, reveals necrotic tissue and is somewhat fluctuant with surrounding erythema around this distal ulceration, consistent with infection and abscess. MRI was reviewed, revealing some signal change on the distal aspect of the 4th and 5th metatarsal areas distally. Osteomyelitis cannot be excluded. Abscess formation is seen. After appropriate time-out, informed consent was obtained and excisional debridement was performed through the subcutaneous and deeper tissue. Utilizing a sterile curette, the ulcer was debrided. A small abscess was noted in the more medial aspect of the wound, in between the 4th and 5th metatarsal heads. This area extended approximately 6-7 mm in depth with some fluid formation. This fluid and necrotic tissue was cultured aerobic and anaerobically. The necrotic tissue was debrided excisionally through the subcutaneous tissues. The deeper area was muscular in nature that was debrided. This lesion did not extend to bone, however; and there was approximately less than a half milliliter of purulent material. After thorough debridement, the ulcer was again measured. The distal lateral ulcer measured approximately 40 x 40 mm x 40 mm. Depth was, at its deepest margin, 6-7 mm, tapering down to 2 mm. Orders written to cleanse the wound with Vashe, apply Silvadene and a dressing twice a day on the left foot wound. Right foot wound apply Optifoam dressing. This can be changed every 3 days or more frequently if saturated. Since the ulcer does not extend to bone, clinically would monitor his wound and see if these improve. If worsening, he could always be taken to the operating room (OR) for local surgical debridement of bone. Patient's questions were answered. His antibiotics can be cultured according to his culture and sensitivity. He has a history of methicillin-resistant Staphylococcus aureus. PARAMJIT
== END 2019-08-25 15:49 | DRG 623 ==
LOC: EDBD 16:59 → M ED 16:59 → M ED INP 22:24 → ENRESERV 23:02 → M MS5PR 23:24
PROVIDERS: ADMIT Internal Medicine; ATTEND Internal Medicine
PROC: 0KBW0ZZ Excision of Left Foot Muscle, Open Approach (ICD-10-PCS; principal; 2019-08-25)

== ENCOUNTER 2019-08-25 14:51 | Inpatient (IN) | payer MEDICARE, BC, OTHER ==
[~2019-08-25] VITALS: Ht 167.6 cm; Wt 88.4 kg
[~2019-08-25 14:51] MED LIST changes: +ASPI81TA26 PO; +BACL5TAB2; +BACL5TAB2 PO; +CALC1TAB8 PO; +CYAN2500 SL; +FURO40TA2 PO; +GLUCTAB6 PO; +HYDR-3713; +HYDR-3713 PO; +KEFL500C17 PO; +LANTINJ4 SC; +MAGN400T2 PO; +NOVOINJ3 SC; +OCUVTAB4 PO; +PENT400T22; +PENT400T23 PO; +REFR0.5D8 OU; +SANT250O8; +SANT250O8 TOP; +VITA-158 PO; +VITA400C53 PO; +VITA50005 PO
[2019-08-25 15:50] VITALS: BP 148/76
[2019-08-25] MEDS ORDERED: BISACODYL 10 MG SUPP PR PRN (16:15)
[2019-08-25] MEDS ORDERED: DEXTROSE 50% 50 ML SYRINGE IV PRN (16:15)
[2019-08-25] MEDS ORDERED: GLUCAGON INJ 1MG VIAL SC PRN (16:15)
[2019-08-25] MEDS ORDERED: GLUCOSE 4GM CHEW TABLET PO PRN (16:15)
[2019-08-25] MEDS: PENTOXIFYLLINE 400 MG TAB PO SCH (18:15)
[2019-08-25] MEDS: HumaLOG INSULIN (NovoLOG) PER UNIT SC SCH ×2 (18:15→21:00)
[2019-08-25] MEDS: SILVER SULFADIAZINE 1% CR 50 GM JAR TOP SCH (18:16)
[2019-08-25] MEDS: SANTYL OINT 30GM TOP SCH (18:16)
[2019-08-25] MEDS: IPRATROPIUM 0.5MG/ALBUTEROL 2.5MG INH SOL UD 3ML (DUONEB) NEB SCH (19:33)
[2019-08-25 20:00] VITALS: BP 121/56
[2019-08-25] MEDS: LEVEMIR (INSULIN DETEMIR) 1 UNITS/0.01ML SC SCH (21:43)
[2019-08-25] MEDS: HEPARIN SOD (PORCINE) 5000UNITS/ML VIAL (J1644 PER 1000UNITS) SC SCH (21:43)
[2019-08-25] MEDS: POLYVINYL ALCOHOL OPHTH SOLN 15 ML(LIQUITEARS) OU SCH (21:43)
[2019-08-25] MEDS: FAMOTIDINE 20 MG TAB PO SCH (21:45)
[2019-08-25] MEDS: SENNA 8.6 MG TAB (SENOKOT) PO SCH (21:45)
[2019-08-25] MEDS: ASPIRIN 81 MG CHEW TABLET PO SCH (21:45)
[2019-08-25] MEDS: LISINOPRIL *2.5 MG* TAB PO SCH (21:45)
[2019-08-25] MEDS: MAGNESIUM OXIDE 400 MG TAB (MAG-OX) PO SCH (21:45)
[2019-08-25] MEDS: GABAPENTIN 300 MG CAP PO SCH (21:45)
[2019-08-25] MEDS: ACETAMINOPHEN 500 MG TAB PO SCH (21:46)
[2019-08-25] MEDS: LACTOBACILLUS ACIDOPHILUS CAP (BACID) PO SCH (21:46)
[2019-08-25] MEDS: DOCUSATE SODIUM 100 MG CAP PO SCH (21:46)
[2019-08-25] MEDS: atenoloL 25 MG TAB PO SCH (21:46)
[2019-08-25] MEDS: predniSONE 2.5 MG TAB PO SCH (21:46)
[2019-08-25] MEDS: ATORVASTATIN 10 MG TAB PO SCH (21:46)
[2019-08-25] MEDS: CEPHALEXIN 500 MG CAP PO SCH (21:47)
[2019-08-25] MEDS: REMEDY PHYTOPLEX Z-GUARD PASTE 113GM TUBE (FROM STOREROOM PRODUCT) TOP SCH (21:47)
[2019-08-26 04:00] VITALS: BP 132/62
[2019-08-26 07:00] LABS: BASO % 0.3 % (0.0-1.0); EOS # 0.1 10^3/uL (0.0-0.5); EOS % 0.7 % (0.0-3.0); HEMATOCRIT 24.2 % (42.0-52.0); HEMOGLOBIN 7.8 g/dl (13.5-17.5); LYMPH # 1.1 10^3/uL (1.5-5.0); LYMPH % 6.7 % (24.0-44.0); MEAN CORPUSCULAR HGB CONC 32.2 g/dl (32.0-36.5); MONO # 1.4 10^3/uL (0.0-0.8); MONO % 8.7 % (0.0-5.0); NEUTROPHILS # 12.9 10^3/uL (1.5-8.5); NEUTROPHILS % 82.6 % (36.0-66.0); PLATELET COUNT, AUTOMATED 322 10^3/uL (150-450); RED BLOOD COUNT 2.69 10^6/uL (4.30-6.10); WHITE BLOOD COUNT 15.6 10^3/uL (4.0-10.0)
[2019-08-26] MEDS: IPRATROPIUM 0.5MG/ALBUTEROL 2.5MG INH SOL UD 3ML (DUONEB) NEB SCH ×3 (07:16→20:00)
[2019-08-26 07:22] LABS: ALT/SGPT 73 U/L (12-78); BILIRUBIN,TOTAL 0.3 MG/DL (0.2-1.0); BLOOD UREA NITROGEN 25 MG/DL (7-18); CALCIUM LEVEL 8.2 MG/DL (8.8-10.2); CARBON DIOXIDE LEVEL 25 MEQ/L (21-32); CHLORIDE LEVEL 104 MEQ/L (98-107); CREATININE FOR GFR 0.96 MG/DL (0.70-1.30); GLOMERULAR FILTRATION RATE > 60.0 (>35); GLUCOSE, FASTING 94 MG/DL (70-100); POTASSIUM SERUM 4.1 MEQ/L (3.5-5.1); SODIUM LEVEL 138 MEQ/L (136-145); TOTAL PROTEIN 5.6 GM/DL (6.4-8.2)
[2019-08-26] MEDS: HumaLOG INSULIN (NovoLOG) PER UNIT SC SCH ×4 (07:30→20:21)
[2019-08-26] MEDS ORDERED: PNEUMOCOCCAL VACCINE 0.5ML SYRINGE(90732) PNEUMOVAX 23 IM ONE (09:00)
[2019-08-26] MEDS: LACTOBACILLUS ACIDOPHILUS CAP (BACID) PO SCH ×3 (09:09→20:18)
[2019-08-26] MEDS: MAGNESIUM OXIDE 400 MG TAB (MAG-OX) PO SCH ×2 (09:09→20:18)
[2019-08-26] MEDS: PENTOXIFYLLINE 400 MG TAB PO SCH ×2 (09:09→17:17)
[2019-08-26] MEDS: predniSONE 2.5 MG TAB PO SCH ×2 (09:09→20:17)
[2019-08-26] MEDS: DOCUSATE SODIUM 100 MG CAP PO SCH ×2 (09:10→20:18)
[2019-08-26] MEDS: ASCORBIC ACID 500 MG TAB PO SCH (09:10)
[2019-08-26] MEDS: CYANOCOBALAMIN 500 MCG TAB PO SCH (09:10)
[2019-08-26] MEDS: OCUVITE 1 TAB PO SCH (09:10)
[2019-08-26] MEDS: CEPHALEXIN 500 MG CAP PO SCH ×3 (09:10→20:18)
[2019-08-26] MEDS: GABAPENTIN 300 MG CAP PO SCH ×3 (09:10→20:17)
[2019-08-26] MEDS: FAMOTIDINE 20 MG TAB PO SCH ×2 (09:10→20:18)
[2019-08-26] MEDS: HEPARIN SOD (PORCINE) 5000UNITS/ML VIAL (J1644 PER 1000UNITS) SC SCH ×2 (09:12→20:16)
[2019-08-26] MEDS: ACETAMINOPHEN 500 MG TAB PO SCH ×3 (09:12→20:17)
[2019-08-26] MEDS: REMEDY PHYTOPLEX Z-GUARD PASTE 113GM TUBE (FROM STOREROOM PRODUCT) TOP SCH ×3 (09:14→20:20)
[2019-08-26] MEDS: FUROSEMIDE 40 MG TAB PO SCH (09:14)
[2019-08-26] MEDS: POLYVINYL ALCOHOL OPHTH SOLN 15 ML(LIQUITEARS) OU SCH ×3 (09:14→20:19)
[2019-08-26] MEDS: LISINOPRIL *2.5 MG* TAB PO SCH ×2 (09:15→20:18)
[2019-08-26] MEDS: atenoloL 25 MG TAB PO SCH ×2 (09:15→20:21)
[2019-08-26 10:38] LABS: MAGNESIUM LEVEL 2.3 MG/DL (1.8-2.4)
--- NOTE | 2019-08-26 11:13 | HPEPDOC ---
[facility] Note DATE OF ADMISSION: 08-25-19 DATE OF SERVICE: 08-26-19 TIME OF ADMISSION: Please refer to physician's admission order. SOURCE OF ADMISSION INFORMATION: [facility] record and patient CHIEF COMPLAINT:left foot cellulitis in setting of diabetic peripheral polyneuropathy HISTORY OF PRESENT ILLNESS: 84 M pmh DM2, grade 2 chronic diastolic CHF, moderate-severe aortic stenosis with chronic CHF, diabetes with peripheral polyneuropathy, recurrent osteomyeli tis s/p bilateral trans-metatarsal amputation of his feet, HTN, NEVILLE, anemia of chronic disease, fungal foot infection, PAD presented to [facility] ED on 08-23-19 complaining of weakness with chills. Foot MRI showed, soft tissue wound involving the skin with apparent ulceration laterally at the distal aspect of the remaining foot. Very mild edema is seen in the distal end of the remaining 4th and 5th metatarsal shaftscannot exclude mild osteomyelitis at those locations. He was started on Iv antibiotics and then transitioned to oral antibiotics following bedside debridement of his left foot by podiatry on 08-25-19. He was found to have new impairments in mobility and ADLs and deemed medically appropriate for discharge to ARU on 08-25-19. REVIEW OF SYSTEMS: The following is a completed review of systems and has been reviewed. Review of systems otherwise unremarkable. PAIN: Patient self reports no pain EYES: No recent vision changes EARS, NOSE, & THROAT: No throat pain, or dysphagia, or rhinorrhea CARDIOVASCULAR: Denies chest pain or palpitations PULMONARY: Denies shortness of breath GASTROINTESTINAL: Denies constipation/diarrhea GENITOURINARY: denies dysuria MUSCULOSKELETAL: generalized weakness NEUROLOGICAL:+peripheral polyneuropathy HEMATOLOGICAL: +chronic anemia SKIN: bilateral foot ulcers and sacral skin breakdown PSYCHIATRIC: Unremarkable All other review of systems found to be negative. PAST MEDICAL HISTORY: as per HPI PAST SURGICAL HISTORY: bilat trans-metatarsal amputations ALLERGIES: Please see below. MEDICATIONS: Please see below. SOCIAL HISTORY: former smoker, no etoh/illicit drugs DIET: consistent carb, fluid restrict PHYSICAL EXAMINATION: VITAL SIGNS: Please see below. GENERAL: Pleasant and cooperative. No acute distress. HEENT: PERRL. Extraocular movements intact. Clear conjunctiva CARDIOVASCULAR: Regular rate and rhythm. No murmurs, rubs, or gallops LUNGS: Clear to auscultation bilaterally. No wheezes. No rhonchi ABDOMEN: Soft, nontender, nondistended. Positive bowel sounds. Normal active bowel sounds NEUROLOGICAL: Alert and oriented times three. Cranial nerves II through XII grossly intact. Sensation diminished to light touch bilat finger tips and bilat feet EXTREMITIES: 5-\5 strength bilateral upper extremities. 4\5 strength right hip flexor/knee extension ankle DF, 4\5 strength right hip flexor/knee extension ankle DF bilat finger flexion contractures SKIN: right midfoot ulcer with scant exudate and granulation tissue right heel ulcer with granulation tissue left midfoot two ulcers with granulation tissue, no jenae-wound induration, no exudate sacrum with multiple areas of friction/shearing open areas LABORATORY DATA: Please see below. IMAGING:Imaging documentation personally reviewed by record FUNCTIONAL STATUS: Premorbid: Mod-I for functional transfers and ADLs primarily using wheelchair On Admission: Min-total for bed mobility, toileting, and functional transfers GOALS: Mod-I household wheelchair level, functional transfers, dressing, bathing, toileting ASSESSMENT:84-year-old M with past medical history of PAD and DM with peripheral polyneuropathy who presents with left foot ulcer s/p debridement PLAN: 1. Rehab- PT/OT advance gait and ADL, strengthen/stretch/maintain ROM all 4limbs, NWB bilat LE except for transfers 2. Neuro- peripheral polyneuropathy due to DM with ambulation impairment and leading to multiple LE skin infections requiring bilat transmetatarsal amputation 3. CArdiac- chronic diastolic CHF c/u fluid restriction, daily weights, lasix and GIULIANO-I -HTN c/u atenolol -PAD c/u ASA and Trental -HLD c/u statin -medicine consulted to assist in overall management 4. Resp: encourage incentive spirometry, monitor for infection -Duonebs 5. Endo: pmh DM with peripheral polyneuropathy c/u Levemir and ISS, adjust ac cordingly 6. GI ppx: pepcid BID 7. Heme: anemia of chronic disease, monitor and transfuse if Hgb <8 8. DVT px: heparin 9. Pain: gabapentin for peripheral polyneuropathy, Tylenol and oxycodone prn 10. skin- c/u dressing change orders per instructions 11. ID- on Keflex for cellulitis, will trend CRP and consider ID consult if does not respond to orals -s/p left mid-foot debridement 6--20, f/u with podiatry outpatient 12. Dispo: TBD POST ADMISSION PHYSICIAN EVALUATION: Medical and functional status: Description of medical status, medical assessment: As above. Rehabilitation diagnosis and current and prior cold morbid medical conditions as above. Risk of complications and plans to mitigate them as above. Description of functional status current status is as above. Prior status as above. Status compared to preadmission: There are no clinically significant differences between the patient's current status and the information described on the preadmission screening document. Treatment plan anticipated: Treatment plan is as described above. Required disciplines including physical therapy, occupational therapy, others as noted above. Intensity of services: 3 hours a day, 6 days a week. Special considerations: There are no specific special or safety considerations that would likely preclude immediate implementation of an intensive rehabilitation program or subsequently influence the plan of care. ATTESTATION: Considering all the information above, it is my best judgment that this patient requires intensive rehabilitation therapy as described above and an inpatient hospital environment due to the complexity of nursing, medical, and rehabilitation needs required by the patient. Furthermore, this patient can reasonably be expected to participate in an benefit from an inpatient rehabilitation stay with an interdisciplinary team approach to the delivery of rehabilitation care under the direction and supervision of rehabilitation physician. PROGNOSIS: Excellent ESTIMATED LENGTH OF STAY:10-14 days. PROJECTED DISCHARGE DESTINATION: Home with family support and any durable medical equipment required to increase functional safety and mobility TIME SPENT COUNSELING AND COORDINATING INITIAL CARE: Greater than 70 minutes. Vital Signs Vital Sign - Last 24 Hours 08/25/19 08/25/19 08/25/19 08/25/19 15:50 20:00 21:45 21:46 Temp 97.6 98.9 Pulse 82 89 89 Resp 22 20 B/P (MAP) 148/76 (100) 121/56 (77) 121/56 121/56 Pulse Ox 97 97 O2 Delivery Room Air Room Air 08/26/19 08/26/19 08/26/19 04:00 09:15 09:15 Temp 98.2 Pulse 68 50 Resp 18 B/P (MAP) 132/62 (85) 117/55 117/55 Pulse Ox 100 O2 Delivery NIPPV (BIPAP/CPAP) Laboratory Data CBC/BMP Laboratory Tests 08/26/19 06:39 Labs 24H Laboratory Tests 2 08/25/19 21:14: Bedside Glucose (Misc Panel) 183H 08/26/19 06:39: Immature Granulocyte % (Auto) 1.0, Neutrophils (%) (Auto) 82.6H, Lymphocytes (%) (Auto) 6.7L, Monocytes (%) (Auto) 8.7H, Eosinophils (%) (Auto) 0.7, Basophils (%) (Auto) 0.3, Neutrophils # (Auto) 12.9H, Lymphocytes # (Auto) 1.1L, Monocytes # (Auto) 1.4H, Eosinophils # (Auto) 0.1, Basophils # (Auto) 0.0, Nucleated Red Blood Cells % (auto) 0.0, Anion Gap 9, Glomerular Filtration Rate > 60.0, Calcium Level 8.2L, Total Bilirubin 0.3, Aspartate Amino Transf (AST/SGOT) 90H, Alanine Aminotransferase (ALT/SGPT) 73, Alkaline Phosphatase 69, Total Protein 5.6L, Albumin 2.0L, Albumin/Globulin Ratio 0.6 FSBS Laboratory Tests Test 08/25/19 21:14 Range/Units Bedside Glucose (Misc Panel) 183 83-110 MG/DL Home Medications Scheduled Ascorbic Acid (Vitamin C) 500 Mg Tablet, 500 MG PO DAILY, (Reported) Aspirin (Aspirin EC) 81 Mg Tablet.dr, 81 MG PO QHS, (Reported) Atenolol (Atenolol) 25 Mg Tablet, 25 MG PO BID, (Reported) Atorvastatin Calcium (Atorvastatin Calcium) 10 Mg Tablet, 10 MG PO QHS, (Reported) Calcium Carbonate/Vitamin D3 (Calcium 600-Vit D3 400 Tablet) 1 Each Tablet, 1 TAB PO DAILY, (Reported) Carboxymethylcellulose Sodium (Refresh Tears) 15 Ml Drops, 1 DROP OU BID, (Reported) Cephalexin (Keflex) 500 Mg Capsule, 500 MG PO TID Collagenase Clostridium Hist. (Santyl) 30 Gm Oint...g., 1 APLCT TOP QHS, (Reported) APPLY TO LESIONS ON BOTH FEET Cyanocobalamin (Vitamin B-12) (Vitamin B-12) 2,500 Mcg Tab.subl, 2,500 MCG SL Q2D, (Reported) Ergocalciferol (Vitamin D2) (Vitamin D2) 50,000 Units Cap, 50,000 UNITS PO Q2WK, (Reported) EVERY OTHER THURSDAY Famotidine (Famotidine) 40 Mg Tablet, 40 MG PO BID, (Reported) Furosemide (Furosemide) 40 Mg Tablet, 40 MG PO DAILY, (Reported) Gabapentin (Gabapentin) 300 Mg Capsule, 600 MG PO QAM, (Reported) Gabapentin (Gabapentin) 300 Mg Capsule, 900 MG PO DAILY, (Reported) TAKES AT NOON Gabapentin (Gabapentin) 300 Mg Capsule, 300 MG PO QHS, (Reported) Gluc Rivas/Chondro Rivas A/Vit C/Mn (Glucosamine Chondroitin Tab) 1 Each Tablet, 1 TAB PO BID, (Reported) Insulin Aspart (Novolog Flexpen) 100 Unit/1 Ml Insuln.pen, 1 DOSE SC AC, (Reported) PER SLIDING SCALE Insulin Glargine,Hum.rec.anlog (Lantus Solostar) 100 Unit/1 Ml Insuln.pen, 30 UNITS SC QHS, (Reported) Lisinopril (Lisinopril) 2.5 Mg Tablet, 2.5 MG PO BID, (Reported) Magnesium Oxide (Magnesium Oxide) 400 Mg Tablet, 400 MG PO BID, (Reported) Pentoxifylline (Pentoxifylline) 400 Mg Tablet.er, 400 MG PO BID, (Reported) Prednisone (Prednisone) 2.5 Mg Tablet, 2.5 MG PO BID, (Reported) Vit A/Vit C/Vit E/Zinc/Copper (Preservision Areds Tablet) 1 Each Tablet, 1 TAB PO DAILY, (Reported) Vitamin E (Vitamin E) 400 Unit Capsule, 400 UNIT PO DAILY, (Reported) Scheduled PRN Baclofen (Baclofen) 5 Mg Tablet, 5 MG PO TID PRN for MUSCLE SPASMS, (Reported) Hydrocodone/Acetaminophen (Hydrocodone-Acetamin 5-325 mg) 1 Each Tablet, 1 TAB PO Q6H PRN for PAIN, (Reported) MDD 4 Allergies Coded Allergies: Penicillins (Verified Allergy, Severe, ANAPHYLAXIS, 08/23/19) erythromycin base (Verified Allergy, Severe, ANAPHYLAXIS, 08/23/19) A-FIB/CHADSVASC A-FIB History Current/History of A-Fib/PAF?: No RONNIE RIVERA MD Aug 26, 2019 11:13
--- NOTE | 2019-08-26 11:15 | IPNPDOC ---
PM&R Progress Note DATE OF SERVICE: Aug 26, 2019 [employer] Progress Note Subjective: Patient reports he slept ok and does not feel more fatigued today compared to yesterday. REVIEW OF SYSTEMS: The following is a completed review of systems and has been reviewed. Review of systems otherwise unremarkable. PAIN: Patient self reports no pain EYES: No recent vision changes EARS, NOSE, & THROAT: No throat pain, or dysphagia, or rhinorrhea CARDIOVASCULAR: Denies chest pain or palpitations PULMONARY: Denies shortness of breath GASTROINTESTINAL: Denies constipation/diarrhea GENITOURINARY: denies dysuria MUSCULOSKELETAL: generalized weakness NEUROLOGICAL:+peripheral polyneuropathy HEMATOLOGICAL: +chronic anemia SKIN: bilateral foot ulcers and sacral skin breakdown PSYCHIATRIC: Unremarkable All other review of systems found to be negative. PHYSICAL EXAMINATION: VITAL SIGNS: Please see below. GENERAL: Pleasant and cooperative. No acute distress. HEENT: PERRL. Extraocular movements intact. Clear conjunctiva CARDIOVASCULAR: Regular rate and rhythm. No murmurs, rubs, or gallops LUNGS: Clear to auscultation bilaterally. No wheezes. No rhonchi ABDOMEN: Soft, nontender, nondistended. Positive bowel sounds. Normal active bowel sounds NEUROLOGICAL: Alert and oriented times three. Cranial nerves II through XII grossly intact. Sensation diminished to light touch bilat finger tips and bilat feet EXTREMITIES: 5-\5 strength bilateral upper extremities. 4\5 strength right hip flexor/knee extension ankle DF, 4\5 strength right hip flexor/knee extension ankle DF bilat finger flexion contractures SKIN: right midfoot ulcer with scant exudate and granulation tissue right heel ulcer with granulation tissue left midfoot two ulcers with granulation tissue, no jenae-wound induration, no exudate sacrum with multiple areas of friction/shearing open areas ASSESSMENT:84-year-old M with past medical history of PAD and DM with peripheral polyneuropathy who presents with left foot ulcer s/p debridement PLAN: 1. Rehab- PT/OT advance gait and ADL, strengthen/stretch/maintain ROM all 4limbs, NWB bilat LE except for transfers 2. Neuro- peripheral polyneuropathy due to DM with ambulation impairment and leading to multiple LE skin infections requiring bilat transmetatarsal amputation 3. CArdiac- chronic diastolic CHF c/u fluid restriction, daily weights, lasix and GIULIANO-I -HTN c/u atenolol -PAD c/u ASA and Trental -HLD c/u statin -medicine consulted to assist in overall management 4. Resp: encourage incentive spirometry, monitor for infection -Duonebs 5. Endo: pmh DM with peripheral polyneuropathy c/u Levemir and ISS, adjust acc ordingly 6. GI ppx: pepcid BID 7. Heme: anemia of chronic disease, monitor and transfuse if Hgb <8 -hgb 7.8 today, will recheck tomorrow as patient asymptomatic, FOBT ordered and oral iron started 8. DVT px: heparin 9. Pain: gabapentin for peripheral polyneuropathy, Tylenol and oxycodone prn 10. skin- c/u dressing change orders per instructions 11. ID- on Keflex for cellulitis, trend CRP and consider ID consult if does not respond to orals -s/p left mid-foot debridement 08-25-19, f/u with podiatry outpatient 12. Dispo: TBD Allergies Coded Allergies: Penicillins (Verified Allergy, Severe, ANAPHYLAXIS, 08/23/19) erythromycin base (Verified Allergy, Severe, ANAPHYLAXIS, 08/23/19) Vital Signs Vital Signs Date Time Temp Pulse Resp B/P (MAP) Pulse Ox O2 Delivery O2 Flow Rate FiO2 08/26/19 09:15 117/55 08/26/19 09:15 50 08/26/19 04:00 98.2 18 100 NIPPV (BIPAP/CPAP) Laboratory Data CBC/BMP Laboratory Tests 08/26/19 06:39 Labs 24H Laboratory Tests 2 08/25/19 21:14: Bedside Glucose (Misc Panel) 183H 08/26/19 06:39: Immature Granulocyte % (Auto) 1.0, Neutrophils (%) (Auto) 82.6H, Lymphocytes (%) (Auto) 6.7L, Monocytes (%) (Auto) 8.7H, Eosinophils (%) (Auto) 0.7, Basophils (%) (Auto) 0.3, Neutrophils # (Auto) 12.9H, Lymphocytes # (Auto) 1.1L, Monocytes # (Auto) 1.4H, Eosinophils # (Auto) 0.1, Basophils # (Auto) 0.0, Nucleated Red Blood Cells % (auto) 0.0, Anion Gap 9, Glomerular Filtration Rate > 60.0, Gumaro cium Level 8.2L, Magnesium Level 2.3, Total Bilirubin 0.3, Aspartate Amino Transf (AST/SGOT) 90H, Alanine Aminotransferase (ALT/SGPT) 73, Alkaline Phosphatase 69, C-Reactive Protein, Quantitative 17.60H, Total Protein 5.6L, Albumin 2.0L, Albumin/Globulin Ratio 0.6 Current Medications Current Medications Current Medications Medications (Trade) Dose Ordered Sig/Stephane Route PRN Reason Start Time Stop Time Status Last Admin Dose Admin Acetaminophen (Tylenol Tab) 1,000 mg TID PO 08/25/19 21:00 08/26/19 09:12 Albuterol/ Ipratropium (Duoneb (Ipr 0.5mg/Alb 2.5mg)) 3 ml RTID NEB 08/25/19 20:00 08/26/19 07:16 Artificial Tears (Akwa Tears) 2 drop TID OU 08/25/19 21:00 08/26/19 09:14 Ascorbic Acid (Vitamin C) 500 mg DAILY PO 08/26/19 09:00 08/26/19 09:10 Aspirin (Aspirin Chewable) 81 mg QHS PO 08/25/19 21:00 08/25/19 21:45 Atenolol (Tenormin) 25 mg BID PO 08/25/19 21:00 08/26/19 09:15 Atorvastatin Calcium (Lipitor) 10 mg QHS PO 08/25/19 21:00 08/25/19 21:46 Bisacodyl (Dulcolax Suppository) 10 mg DAILYPRN PRN CO CONSTIPATION 08/25/19 16:15 Cephalexin Monohydrate (Keflex) 500 mg TID PO 08/25/19 21:00 09/01/19 16:01 08/26/19 09:10 Collagenase (Santyl) PER DRESSING INSTRUCTIONS ASDIRECTED TOP 08/25/19 16:15 08/25/19 18:16 Cyanocobalamin (Vitamin B12) 1,000 mcg DAILY PO 08/26/19 09:00 08/26/19 09:10 Dextrose (Dextrose 50%) 25 ml ASDIRECTED PRN IV SEE LABEL COMMENTS 08/25/19 16:15 Docusate Sodium (Colace) 100 mg BID PO 08/25/19 21:00 08/26/19 09:10 Famotidine (Pepcid) 40 mg BID PO 08/25/19 21:00 08/26/19 09:10 Furosemide (Lasix) 40 mg DAILY PO 08/26/19 09:00 08/26/19 09:14 Gabapentin (Neurontin) 300 mg TID PO 08/25/19 21:00 08/26/19 09:10 Glucagon (Glucagon) 1 mg ASDIRECTED PRN SC SEE LABEL COMMENTS 08/25/19 16:15 Glucose (Glucose) 16 GM ASDIRECTED PRN PO SEE LABEL COMMENTS 08/25/19 16:15 Heparin Sodium (Porcine) (Heparin) 5,000 units Q12H SC 08/25/19 21:00 08/26/19 09:12 Insulin Detemir (Levemir Insulin) 30 units QHS SC 08/25/19 21:00 08/25/19 21:43 Insulin Human Lispro (HumaLOG INSULIN) SEE PROTOCOL TABLE AC GA 08/25/19 17:30 08/25/19 18:15 Insulin Human Lispro (HumaLOG INSULIN) SEE PROTOCOL TABLE QHS SC 08/25/19 21:00 Lactobacillus Acidophilus (Bacid) 1 ea TID PO 08/25/19 21:00 08/26/19 09:09 Lisinopril (Prinivil) 2.5 mg BID PO 08/25/19 21:00 08/26/19 09:15 Magnesium Oxide (Mag-Ox) 400 mg BID PO 08/25/19 21:00 08/26/19 09:09 Multivitamins (Ocuvite(I-Tashi)) 1 tab DAILY PO 08/26/19 09:00 08/26/19 09:10 Oxycodone HCl (Roxicodone, Oxyir) 5 mg Q4HP PRN PO PAIN 08/25/19 16:15 Pentoxifylline (TRENtal) 400 mg BID@08,18 PO 08/25/19 18:00 08/26/19 09:09 Prednisone (Deltasone) 2.5 mg BID PO 08/25/19 21:00 08/26/19 09:09 Senna (Senokot) 1 tab QHS PO 08/25/19 21:00 08/25/19 21:45 Silver Sulfadiazine (Silvadene 1%) PER DRESSING INSTRUCTIONS ASDIRECTED TOP 08/25/19 16:15 08/25/19 18:16 RONNIE RIVERA MD Aug 26, 2019 11:15
[2019-08-26] MEDS: FERROUS SULFATE 325MG TAB PO SCH ×2 (12:11→20:17)
[2019-08-26] MEDS: VANICREAM MOISTURIZING SKIN CREAM 113GM TUBE TOP SCH ×2 (12:12→20:19)
--- NOTE | 2019-08-26 13:17 | IPNPDOC ---
Date Seen The patient was seen on 08/26/19. Progress Note SUBJECTIVE: 84-year-old male with past medical history of diabetes mellitus, hypertension, hyperlipidemia, peripheral vascular disease and multiple foot ulcerations, was admitted to the inpatient service for diabetic foot ulcer with possible osteomyelitis. Patient was treated with IV antibiotics, underwent surgical debridement by podiatry and has now been discharged to acute rehabilitation unit for physical therapy. Patient is comfortable in the morning, without any complaints, denies shortness of breath, chest pain, nausea, vomiting, diarrhea or constipation. 10 point review of systems negative so for above PHYSICAL EXAMINATION: VITAL SIGNS: Please see below. GENERAL: No distress HEENT: Normocephalic, atraumatic, moist mucous membranes NECK: Supple CARDIOVASCULAR EXAMINATION: S1, S2, no murmurs RESPIRATORY EXAMINATION: Scattered rhonchi, no wheezing ABDOMINAL EXAMINATION: Soft, nontender, nondistended, positive bowel sounds EXTREMITIES: Lower extremity edema noted SKIN: Multiple pressure ulcerations present, especially in bilateral lower extremities/feet NEUROLOGICAL EXAMINATION: no focal deficits PSYCHIATRIC EXAMINATION: Calm and cooperative LABORATORY DATA, IMAGING STUDIES, MICROBIOLOGY: Please see below. ASSESSMENT AND PLAN: A 4-year-old male with multiple medical comorbidities, was initially admitted for diabetic foot wound with possible osteomyelitis, underwent surgical debridement, who is now admitted to acute rehabilitation unit for physical therapy. PROBLEMS: 1. Physical deconditioning: Management as per primary team. 2. Diabetic foot wound/possible osteomyelitis: Status post surgical debridement, suspicion is low for osteomyelitis, continue Keflex, complete a two-week course, outpatient follow-up with podiatry. 3. Diabetes mellitus: Continue Levemir and sliding scale insulin coverage with meals and at bedtime. 4. Hypertension: Continue atenolol and lisinopril 5. Hyperlipidemia: Continue atorvastatin DVT prophylaxis: Heparin subcutaneous GI prophylaxis: Pepcid VS, I&O, 24H, Fishbone Vital Signs/I&O Vital Signs Date Time Temp Pulse Resp B/P (MAP) Pulse Ox O2 Delivery O2 Flow Rate FiO2 08/26/19 09:15 117/55 08/26/19 09:15 50 08/26/19 04:00 98.2 18 100 NIPPV (BIPAP/CPAP) I&O- Last 24 Hours up to 6 AM 08/26/19 05:59 Intake Total 480 ml Balance 480 ml Laboratory Data 24H LABS Laboratory Tests 2 08/25/19 21:14: Bedside Glucose (Misc Panel) 183H 08/26/19 06:39: Immature Granulocyte % (Auto) 1.0, Neutrophils (%) (Auto) 82.6H, Lymphocytes (%) (Auto) 6.7L, Monocytes (%) (Auto) 8.7H, Eosinophils (%) (Auto) 0.7, Basophils (%) (Auto) 0.3, Neutrophils # (Auto) 12.9H, Lymphocytes # (Auto) 1.1L, Monocytes # (Auto) 1.4H, Eosinophils # (Auto) 0.1, Basophils # (Auto) 0.0, Nucleated Red Blood Cells % (auto) 0.0, Anion Gap 9, Glomerular Filtration Rate > 60.0, Calcium Level 8.2L, Magnesium Level 2.3, Total Bilirubin 0.3, Aspartate Amino Transf (AST/SGOT) 90H, Alanine Aminotransferase (ALT/SGPT) 73, Alkaline Phosphatase 69, C-Reactive Protein, Quantitative 17.60H, Total Protein 5.6L, Albumin 2.0L, Albumin/Globulin Ratio 0.6 08/26/19 11:36: Bedside Glucose (Misc Panel) 214H CBC/BMP Laboratory Tests 08/26/19 06:39 ABEL MCKEON MD Aug 26, 2019 13:17
[2019-08-26 14:00] VITALS: BP 139/62
[2019-08-26 20:00] VITALS: BP 104/64
[2019-08-26] MEDS: ASPIRIN 81 MG CHEW TABLET PO SCH (20:18)
[2019-08-26] MEDS: SENNA 8.6 MG TAB (SENOKOT) PO SCH (20:18)
[2019-08-26] MEDS: ATORVASTATIN 10 MG TAB PO SCH (20:18)
[2019-08-26] MEDS: LEVEMIR (INSULIN DETEMIR) 1 UNITS/0.01ML SC SCH (20:19)
[2019-08-27 06:00] VITALS: BP 125/58
[2019-08-27 07:08] LABS: BASO # 0.1 10^3/uL (0.0-0.2); BASO % 0.3 % (0.0-1.0); EOS # 0.2 10^3/uL (0.0-0.5); EOS % 1.4 % (0.0-3.0); HEMATOCRIT 24.2 % (42.0-52.0); HEMOGLOBIN 7.7 g/dl (13.5-17.5); MEAN CORPUSCULAR HEMOGLOBIN 28.5 pg (27.0-33.0); MEAN CORPUSCULAR HGB CONC 31.8 g/dl (32.0-36.5); MEAN CORPUSCULAR VOLUME 89.6 fl (80.0-96.0); MONO # 1.3 10^3/uL (0.0-0.8); NEUTROPHILS # 11.8 10^3/uL (1.5-8.5); NEUTROPHILS % 80.8 % (36.0-66.0); PLATELET COUNT, AUTOMATED 324 10^3/uL (150-450); WHITE BLOOD COUNT 14.6 10^3/uL (4.0-10.0)
[2019-08-27] MEDS: IPRATROPIUM 0.5MG/ALBUTEROL 2.5MG INH SOL UD 3ML (DUONEB) NEB SCH ×3 (08:00→19:54)
[2019-08-27] MEDS: PENTOXIFYLLINE 400 MG TAB PO SCH ×2 (08:43→17:09)
[2019-08-27] MEDS: HumaLOG INSULIN (NovoLOG) PER UNIT SC SCH ×4 (08:44→21:00)
[2019-08-27] MEDS: HEPARIN SOD (PORCINE) 5000UNITS/ML VIAL (J1644 PER 1000UNITS) SC SCH ×2 (08:44→21:45)
[2019-08-27] MEDS: FERROUS SULFATE 325MG TAB PO SCH ×2 (08:44→21:45)
[2019-08-27] MEDS: LACTOBACILLUS ACIDOPHILUS CAP (BACID) PO SCH ×3 (08:44→21:46)
[2019-08-27] MEDS: MAGNESIUM OXIDE 400 MG TAB (MAG-OX) PO SCH ×2 (08:44→21:47)
[2019-08-27] MEDS: GABAPENTIN 300 MG CAP PO SCH ×3 (08:44→21:47)
[2019-08-27] MEDS: DOCUSATE SODIUM 100 MG CAP PO SCH ×2 (08:44→21:47)
[2019-08-27] MEDS: predniSONE 2.5 MG TAB PO SCH ×2 (08:44→21:47)
[2019-08-27] MEDS: FUROSEMIDE 40 MG TAB PO SCH (08:44)
[2019-08-27] MEDS: FAMOTIDINE 20 MG TAB PO SCH ×2 (08:45→21:46)
[2019-08-27] MEDS: CYANOCOBALAMIN 500 MCG TAB PO SCH (08:45)
[2019-08-27] MEDS: LISINOPRIL *2.5 MG* TAB PO SCH ×2 (08:45→21:47)
[2019-08-27] MEDS: OCUVITE 1 TAB PO SCH (08:45)
[2019-08-27] MEDS: CEPHALEXIN 500 MG CAP PO SCH ×3 (08:45→21:47)
[2019-08-27] MEDS: ASCORBIC ACID 500 MG TAB PO SCH (08:46)
[2019-08-27] MEDS: atenoloL 25 MG TAB PO SCH ×2 (08:46→21:46)
[2019-08-27] MEDS: ACETAMINOPHEN 500 MG TAB PO SCH ×3 (08:46→21:47)
[2019-08-27] MEDS: POLYVINYL ALCOHOL OPHTH SOLN 15 ML(LIQUITEARS) OU SCH ×3 (08:47→21:47)
[2019-08-27] MEDS: VANICREAM MOISTURIZING SKIN CREAM 113GM TUBE TOP SCH ×2 (08:47→21:48)
[2019-08-27] MEDS: REMEDY PHYTOPLEX Z-GUARD PASTE 113GM TUBE (FROM STOREROOM PRODUCT) TOP SCH ×3 (08:47→21:48)
[2019-08-27] MEDS: SILVER SULFADIAZINE 1% CR 50 GM JAR TOP SCH (11:55)
[2019-08-27] MEDS: SANTYL OINT 30GM TOP SCH (11:55)
[2019-08-27 14:00] VITALS: BP 151/68
[2019-08-27 20:00] VITALS: BP 118/59
[2019-08-27] MEDS: LEVEMIR (INSULIN DETEMIR) 1 UNITS/0.01ML SC SCH (21:45)
[2019-08-27] MEDS: SENNA 8.6 MG TAB (SENOKOT) PO SCH (21:46)
[2019-08-27] MEDS: ASPIRIN 81 MG CHEW TABLET PO SCH (21:46)
[2019-08-27] MEDS: ATORVASTATIN 10 MG TAB PO SCH (21:46)
[2019-08-28 05:23] VITALS: BP 127/60
[2019-08-28] MEDS: HumaLOG INSULIN (NovoLOG) PER UNIT SC SCH ×4 (07:30→20:09)
[2019-08-28] MEDS: IPRATROPIUM 0.5MG/ALBUTEROL 2.5MG INH SOL UD 3ML (DUONEB) NEB SCH ×3 (08:37→18:16)
[2019-08-28] MEDS: ASCORBIC ACID 500 MG TAB PO SCH (08:40)
[2019-08-28] MEDS: HEPARIN SOD (PORCINE) 5000UNITS/ML VIAL (J1644 PER 1000UNITS) SC SCH ×2 (08:40→20:09)
[2019-08-28] MEDS: CEPHALEXIN 500 MG CAP PO SCH ×3 (08:40→20:08)
[2019-08-28] MEDS: GABAPENTIN 300 MG CAP PO SCH ×3 (08:40→20:08)
[2019-08-28] MEDS: OCUVITE 1 TAB PO SCH (08:40)
[2019-08-28] MEDS: CYANOCOBALAMIN 500 MCG TAB PO SCH (08:41)
[2019-08-28] MEDS: PENTOXIFYLLINE 400 MG TAB PO SCH ×2 (08:41→17:11)
[2019-08-28] MEDS: FUROSEMIDE 40 MG TAB PO SCH (08:41)
[2019-08-28] MEDS: FAMOTIDINE 20 MG TAB PO SCH ×2 (08:41→20:08)
[2019-08-28] MEDS: predniSONE 2.5 MG TAB PO SCH ×2 (08:41→20:08)
[2019-08-28] MEDS: FERROUS SULFATE 325MG TAB PO SCH ×2 (08:41→20:08)
[2019-08-28] MEDS: MAGNESIUM OXIDE 400 MG TAB (MAG-OX) PO SCH ×2 (08:41→20:08)
[2019-08-28] MEDS: DOCUSATE SODIUM 100 MG CAP PO SCH ×2 (08:42→20:17)
[2019-08-28] MEDS: LACTOBACILLUS ACIDOPHILUS CAP (BACID) PO SCH ×3 (08:42→20:08)
[2019-08-28] MEDS: LISINOPRIL *2.5 MG* TAB PO SCH ×2 (08:42→20:08)
[2019-08-28] MEDS: ACETAMINOPHEN 500 MG TAB PO SCH ×3 (08:43→20:08)
[2019-08-28] MEDS: atenoloL 25 MG TAB PO SCH ×2 (08:43→20:09)
[2019-08-28] MEDS: VANICREAM MOISTURIZING SKIN CREAM 113GM TUBE TOP SCH ×2 (08:44→20:12)
[2019-08-28] MEDS: POLYVINYL ALCOHOL OPHTH SOLN 15 ML(LIQUITEARS) OU SCH ×3 (08:44→20:12)
[2019-08-28] MEDS: REMEDY PHYTOPLEX Z-GUARD PASTE 113GM TUBE (FROM STOREROOM PRODUCT) TOP SCH ×3 (08:45→20:17)
[2019-08-28 14:00] VITALS: BP 125/60
[2019-08-28 19:55] VITALS: BP 124/60
[2019-08-28] MEDS: ATORVASTATIN 10 MG TAB PO SCH (20:08)
[2019-08-28] MEDS: ASPIRIN 81 MG CHEW TABLET PO SCH (20:08)
[2019-08-28] MEDS: LEVEMIR (INSULIN DETEMIR) 1 UNITS/0.01ML SC SCH (20:10)
[2019-08-28] MEDS: SENNA 8.6 MG TAB (SENOKOT) PO SCH (20:18)
[2019-08-29 06:00] VITALS: BP 160/80
[2019-08-29] MEDS: IPRATROPIUM 0.5MG/ALBUTEROL 2.5MG INH SOL UD 3ML (DUONEB) NEB SCH ×3 (06:26→19:40)
[2019-08-29 06:51] LABS: BASO # 0.1 10^3/uL (0.0-0.2); BASO % 0.4 % (0.0-1.0); EOS # 0.4 10^3/uL (0.0-0.5); EOS % 2.4 % (0.0-3.0); HEMATOCRIT 25.2 % (42.0-52.0); HEMOGLOBIN 7.9 g/dl (13.5-17.5); LYMPH # 1.5 10^3/uL (1.5-5.0); LYMPH % 8.8 % (24.0-44.0); MEAN CORPUSCULAR HEMOGLOBIN 28.6 pg (27.0-33.0); MEAN CORPUSCULAR HGB CONC 31.3 g/dl (32.0-36.5); MEAN CORPUSCULAR VOLUME 91.3 fl (80.0-96.0); MONO # 1.2 10^3/uL (0.0-0.8); MONO % 7.2 % (0.0-5.0); PLATELET COUNT, AUTOMATED 366 10^3/uL (150-450); RED BLOOD COUNT 2.76 10^6/uL (4.30-6.10); WHITE BLOOD COUNT 16.5 10^3/uL (4.0-10.0)
[2019-08-29 07:15] LABS: BLOOD UREA NITROGEN 27 MG/DL (7-18); C REACTIVE PROTEIN QUANTITATIV 7.17 MG/DL (0.00-0.30); CALCIUM LEVEL 8.4 MG/DL (8.8-10.2); CARBON DIOXIDE LEVEL 29 MEQ/L (21-32); CHLORIDE LEVEL 102 MEQ/L (98-107); CREATININE FOR GFR 1.19 MG/DL (0.70-1.30); GLOMERULAR FILTRATION RATE > 60.0 (>35); GLUCOSE, FASTING 180 MG/DL (70-100); SODIUM LEVEL 135 MEQ/L (136-145)
[2019-08-29] MEDS: HumaLOG INSULIN (NovoLOG) PER UNIT SC SCH ×4 (07:30→21:00)
[2019-08-29] MEDS: GABAPENTIN 300 MG CAP PO SCH ×3 (07:30→21:02)
[2019-08-29] MEDS: LACTOBACILLUS ACIDOPHILUS CAP (BACID) PO SCH ×3 (07:31→21:01)
[2019-08-29] MEDS: CEPHALEXIN 500 MG CAP PO SCH ×3 (07:31→20:59)
[2019-08-29] MEDS: atenoloL 25 MG TAB PO SCH ×2 (07:31→21:01)
[2019-08-29] MEDS: FUROSEMIDE 40 MG TAB PO SCH (07:31)
[2019-08-29] MEDS: LISINOPRIL *2.5 MG* TAB PO SCH ×2 (07:31→21:00)
[2019-08-29] MEDS: FAMOTIDINE 20 MG TAB PO SCH ×2 (07:31→21:03)
[2019-08-29] MEDS: PENTOXIFYLLINE 400 MG TAB PO SCH ×2 (07:31→17:08)
[2019-08-29] MEDS: MAGNESIUM OXIDE 400 MG TAB (MAG-OX) PO SCH ×2 (07:32→21:00)
[2019-08-29] MEDS: OCUVITE 1 TAB PO SCH (07:32)
[2019-08-29] MEDS: CYANOCOBALAMIN 500 MCG TAB PO SCH (07:32)
[2019-08-29] MEDS: FERROUS SULFATE 325MG TAB PO SCH ×2 (07:32→20:59)
[2019-08-29] MEDS: ACETAMINOPHEN 500 MG TAB PO SCH ×3 (07:32→21:02)
[2019-08-29] MEDS: predniSONE 2.5 MG TAB PO SCH ×2 (07:32→21:02)
[2019-08-29] MEDS: ASCORBIC ACID 500 MG TAB PO SCH (07:32)
[2019-08-29] MEDS: HEPARIN SOD (PORCINE) 5000UNITS/ML VIAL (J1644 PER 1000UNITS) SC SCH ×2 (07:33→20:58)
[2019-08-29] MEDS: POLYVINYL ALCOHOL OPHTH SOLN 15 ML(LIQUITEARS) OU SCH ×3 (07:35→21:03)
[2019-08-29] MEDS: REMEDY PHYTOPLEX Z-GUARD PASTE 113GM TUBE (FROM STOREROOM PRODUCT) TOP SCH ×3 (07:35→21:03)
[2019-08-29] MEDS: VANICREAM MOISTURIZING SKIN CREAM 113GM TUBE TOP SCH ×2 (07:35→21:04)
[2019-08-29] MEDS: DOCUSATE SODIUM 100 MG CAP PO SCH ×2 (08:17→21:01)
[2019-08-29] MEDS: TAMSULOSIN 0.4 MG CAP PO SCH (11:48)
[2019-08-29] MEDS: amLODIPine 5 MG TAB PO SCH (11:48)
[2019-08-29 11:54] VITALS: BP 149/66
--- NOTE | 2019-08-29 12:19 | IPNPDOC ---
PM&R Progress Note DATE OF SERVICE: Aug 29, 2019 [employer] Progress Note Subjective: Patient reports he is having difficulty urinating and no longer feels the urge. REVIEW OF SYSTEMS: The following is a completed review of systems and has been reviewed. Review of systems otherwise unremarkable. PAIN: Patient self reports no pain EYES: No recent vision changes EARS, NOSE, & THROAT: No throat pain, or dysphagia, or rhinorrhea CARDIOVASCULAR: Denies chest pain or palpitations PULMONARY: Denies shortness of breath GASTROINTESTINAL: Denies constipation/diarrhea GENITOURINARY: denies dysuria, +retention MUSCULOSKELETAL: generalized weakness NEUROLOGICAL:+peripheral polyneuropathy HEMATOLOGICAL: +chronic anemia SKIN: bilateral foot ulcers and sacral skin breakdown PSYCHIATRIC: Unremarkable All other review of systems found to be negative. PHYSICAL EXAMINATION: VITAL SIGNS: Please see below. GENERAL: Pleasant and cooperative. No acute distress. HEENT: PERRL. Extraocular movements intact. Clear conjunctiva CARDIOVASCULAR: Regular rate and rhythm. No murmurs, rubs, or gallops LUNGS: Clear to auscultation bilaterally. No wheezes. No rhonchi ABDOMEN: Soft, nontender, nondistended. Positive bowel sounds. Normal active bowel sounds NEUROLOGICAL: Alert and oriented times three. Cranial nerves II through XII grossly intact. Sensation diminished to light touch bilat finger tips and bilat feet EXTREMITIES: 5-\5 strength bilateral upper extremities. 4\5 strength right hip flexor/knee extension ankle DF, 4\5 strength right hip flexor/knee extension ankle DF bilat finger flexion contractures SKIN: right midfoot ulcer with scant exudate and granulation tissue right heel ulcer with granulation tissue left midfoot two ulcers with granulation tissue, no jenae-wound induration, no exudate sacrum with multiple areas of friction/shearing open areas ASSESSMENT:84-year-old M with past medical history of PAD and DM with peripheral polyneuropathy who presents with left foot ulcer s/p debridement PLAN: 1. Rehab- PT/OT advance gait and ADL, strengthen/stretch/maintain ROM all 4limbs, NWB bilat LE except for transfers 2. Neuro- peripheral polyneuropathy due to DM with ambulation impairment and leading to multiple LE skin infections requiring bilat transmetatarsal amputation 3. CArdiac- chronic diastolic CHF c/u fluid restriction, daily weights, lasix and GIULIANO-I -HTN c/u atenolol, will add amlodipine for elevated BPS -PAD c/u ASA and Trental -HLD c/u statin -medicine consulted to assist in overall management 4. Resp: encourage incentive spirometry, monitor for infection -Duonebs 5. Endo: pmh DM with peripheral polyneuropathy c/u Levemir and ISS, adjust accordingly- will Levemir to 34 units qhs for elevated fasting FS 6. GI ppx: pepcid BID 7. Heme: anemia of chronic disease, monitor and transfuse if Hgb <8 -FOBT negative, patient continues to be asymptomatic at Hgb 7.9 today will cu monitor and provide oral iron 8. DVT px: heparin 9. Pain: gabapentin for peripheral polyneuropathy, Tylenol and oxycodone prn 10. skin- c/u dressing change orders per instructions 11. ID- c/u Keflex for cellulitis, still with leukocytosis around 16, however CRP trending down- will consider ID consult if does not respond to orals however clinically appears well and inflammatory markers improving -s/p left mid-foot debridement 08-25-19, f/u with podiatry outpatient 12. - patient reporting urinary retention and absent urge- will order UA Ucx and start flomax 13. Dispo: TBD Allergies Coded Allergies: Penicillins (Verified Allergy, Severe, ANAPHYLAXIS, 08/23/19) erythromycin base (Verified Allergy, Severe, ANAPHYLAXIS, 08/23/19) Vital Signs Vital Signs Date Time Temp Pulse Resp B/P (MAP) Pulse Ox O2 Delivery O2 Flow Rate FiO2 08/29/19 11:54 74 149/66 (93) 08/29/19 06:00 98.0 17 99 Room Air Laboratory Data CBC/BMP Laboratory Tests 08/29/19 06:32 Labs 24H Laboratory Tests 2 08/28/19 17:06: Bedside Glucose (Misc Panel) 205H 08/28/19 20:06: Bedside Glucose (Misc Panel) 209H 08/29/19 05:39: Bedside Glucose (Misc Panel) 191H 08/29/19 06:32: Immature Granulocyte % (Auto) 2.2, Neutrophils (%) (Auto) 79.0H, Lymphocytes (%) (Auto) 8.8L, Monocytes (%) (Auto) 7.2H, Eosinophils (%) (Auto) 2.4, Basophils (%) (Auto) 0.4, Neutrophils # (Auto) 13.0H, Lymphocytes # (Auto) 1.5, Monocytes # (Auto) 1.2H, Eosinophils # (Auto) 0.4, Basophils # (Auto) 0.1, Nucleated Red Blood Cells % (auto) 0.0, Anion Gap 4L, Glomerular Filtration Rate > 60.0, Calcium Level 8.4L, C-Reactive Protein, Quantitative 7.17H 08/29/19 11:39: Bedside Glucose (Misc Panel) 138H Microbiology Microbiology 08/27/19 Stool Occult Blood (ANATOLY) - Final, Complete Current Medications Current Medications Current Medications Medications (Trade) Dose Ordered Sig/Stephane Route PRN Reason Start Time Stop Time Status Last Admin Dose Admin Acetaminophen (Tylenol Tab) 1,000 mg TID PO 08/25/19 21:00 08/29/19 07:32 Albuterol/ Ipratropium (Duoneb (Ipr 0.5mg/Alb 2.5mg)) 3 ml RTID NEB 08/25/19 20:00 08/29/19 06:26 Amlodipine Besylate (Norvasc) 5 mg DAILY PO 08/29/19 09:00 08/29/19 11:48 Artificial Tears (Akwa Tears) 2 drop TID OU 08/25/19 21:00 08/29/19 07:35 Ascorbic Acid (Vitamin C) 500 mg DAILY PO 08/26/19 09:00 08/29/19 07:32 Aspirin (Aspirin Chewable) 81 mg QHS PO 08/25/19 21:00 08/28/19 20:08 Atenolol (Tenormin) 25 mg BID PO 08/25/19 21:00 08/29/19 07:31 Atorvastatin Calcium (Lipitor) 10 mg QHS PO 08/25/19 21:00 08/28/19 20:08 Bisacodyl (Dulcolax Suppository) 10 mg DAILYPRN PRN IN CONSTIPATION 08/25/19 16:15 Cephalexin Monohydrate (Keflex) 500 mg TID PO 08/25/19 21:00 09/01/19 16:01 08/29/19 07:31 Collagenase (Santyl) PER DRESSING INSTRUCTIONS ASDIRECTED TOP 08/25/19 16:15 08/27/19 11:55 Cyanocobalamin (Vitamin B12) 1,000 mcg DAILY PO 08/26/19 09:00 08/29/19 07:32 Dextrose (Dextrose 50%) 25 ml ASDIRECTED PRN IV SEE LABEL COMMENTS 08/25/19 16:15 Docusate Sodium (Colace) 100 mg BID PO 08/25/19 21:00 08/27/19 21:47 Emollient Cream (Vanicream) apply to bilat calves BID TOP 08/26/19 09:00 08/29/19 07:35 Famotidine (Pepcid) 40 mg BID PO 08/25/19 21:00 08/29/19 07:31 Ferrous Sulfate (Ferrous Sulfate) 325 mg BID PO 08/26/19 09:00 08/29/19 07:32 Furosemide (Lasix) 40 mg DAILY PO 08/26/19 09:00 08/29/19 07:31 Gabapentin (Neurontin) 300 mg TID PO 08/25/19 21:00 08/29/19 07:30 Glucagon (Glucagon) 1 mg ASDIRECTED PRN SC SEE LABEL COMMENTS 08/25/19 16:15 Glucose (Glucose) 16 GM ASDIRECTED PRN PO SEE LABEL COMMENTS 08/25/19 16:15 Heparin Sodium (Porcine) (Heparin) 5,000 units Q12H SC 08/25/19 21:00 08/29/19 07:33 Insulin Detemir (Levemir Insulin) 30 units QHS SC 08/25/19 21:00 08/29/19 10:18 DC 08/28/19 20:10 Insulin Detemir (Levemir Insulin) 34 units QHS SC 08/29/19 21:00 Insulin Human Lispro (HumaLOG INSULIN) SEE PROTOCOL TABLE AC SC 08/25/19 17:30 08/29/19 07:30 Insulin Human Lispro (HumaLOG INSULIN) SEE PROTOCOL TABLE QHS SC 08/25/19 21:00 Lactobacillus Acidophilus (Bacid) 1 ea TID PO 08/25/19 21:00 08/29/19 07:31 Lisinopril (Prinivil) 2.5 mg BID PO 08/25/19 21:00 08/29/19 07:31 Magnesium Oxide (Mag-Ox) 400 mg BID PO 08/25/19 21:00 08/29/19 07:32 Multivitamins (Ocuvite(I-Tashi)) 1 tab DAILY PO 08/26/19 09:00 08/29/19 07:32 Oxycodone HCl (Roxicodone, Oxyir) 5 mg Q4HP PRN PO PAIN 08/25/19 16:15 Pentoxifylline (TRENtal) 400 mg BID@08,18 PO 08/25/19 18:00 08/29/19 07:31 Prednisone (Deltasone) 2.5 mg BID PO 08/25/19 21:00 08/29/19 07:32 Senna (Senokot) 1 tab QHS PO 08/25/19 21:00 08/27/19 21:46 Silver Sulfadiazine (Silvadene 1%) PER DRESSING INSTRUCTIONS ASDIRECTED TOP 08/25/19 16:15 08/27/19 11:55 Tamsulosin HCl (Flomax) 0.4 mg DAILY PO 08/29/19 10:45 08/29/19 11:48 RONNIE RIVERA MD Aug 29, 2019 12:19
[2019-08-29 14:00] VITALS: BP 130/60
[2019-08-29] MEDS: LEVEMIR (INSULIN DETEMIR) 1 UNITS/0.01ML SC SCH (20:59)
[2019-08-29] MEDS: ATORVASTATIN 10 MG TAB PO SCH (20:59)
[2019-08-29 21:00] VITALS: BP 144/67
[2019-08-29] MEDS: ASPIRIN 81 MG CHEW TABLET PO SCH (21:00)
[2019-08-29] MEDS: SENNA 8.6 MG TAB (SENOKOT) PO SCH (21:01)
[2019-08-29] MEDS: oxyCODONE 5MG TAB PO PRN (21:02)
[2019-08-30 05:54] VITALS: BP 137/65
[2019-08-30] MEDS: IPRATROPIUM 0.5MG/ALBUTEROL 2.5MG INH SOL UD 3ML (DUONEB) NEB SCH ×3 (06:07→19:29)
[2019-08-30 08:30] LABS: BASO # 0.1 10^3/uL (0.0-0.2); BASO % 0.4 % (0.0-1.0); EOS # 0.4 10^3/uL (0.0-0.5); EOS % 2.6 % (0.0-3.0); HEMATOCRIT 27.1 % (42.0-52.0); HEMOGLOBIN 8.7 g/dl (13.5-17.5); LYMPH # 1.7 10^3/uL (1.5-5.0); LYMPH % 10.3 % (24.0-44.0); MEAN CORPUSCULAR HEMOGLOBIN 29.2 pg (27.0-33.0); MEAN CORPUSCULAR HGB CONC 32.1 g/dl (32.0-36.5); MEAN CORPUSCULAR VOLUME 90.9 fl (80.0-96.0); MONO # 1.1 10^3/uL (0.0-0.8); MONO % 6.6 % (0.0-5.0); NEUTROPHILS # 12.8 10^3/uL (1.5-8.5); NEUTROPHILS % 77.8 % (36.0-66.0); PLATELET COUNT, AUTOMATED 361 10^3/uL (150-450); RED BLOOD COUNT 2.98 10^6/uL (4.30-6.10); WHITE BLOOD COUNT 16.5 10^3/uL (4.0-10.0)
[2019-08-30] MEDS: MAGNESIUM OXIDE 400 MG TAB (MAG-OX) PO SCH ×2 (08:37→21:50)
[2019-08-30] MEDS: LACTOBACILLUS ACIDOPHILUS CAP (BACID) PO SCH ×3 (08:37→21:49)
[2019-08-30] MEDS: FUROSEMIDE 40 MG TAB PO SCH (08:37)
[2019-08-30] MEDS: FERROUS SULFATE 325MG TAB PO SCH ×2 (08:37→21:53)
[2019-08-30] MEDS: predniSONE 2.5 MG TAB PO SCH ×2 (08:37→21:50)
[2019-08-30] MEDS: DOCUSATE SODIUM 100 MG CAP PO SCH ×2 (08:37→21:51)
[2019-08-30] MEDS: TAMSULOSIN 0.4 MG CAP PO SCH (08:37)
[2019-08-30] MEDS: CYANOCOBALAMIN 500 MCG TAB PO SCH (08:37)
[2019-08-30] MEDS: FAMOTIDINE 20 MG TAB PO SCH ×2 (08:38→21:50)
[2019-08-30] MEDS: GABAPENTIN 300 MG CAP PO SCH ×3 (08:38→21:50)
[2019-08-30] MEDS: CEPHALEXIN 500 MG CAP PO SCH ×3 (08:38→21:51)
[2019-08-30] MEDS: OCUVITE 1 TAB PO SCH (08:38)
[2019-08-30] MEDS: PENTOXIFYLLINE 400 MG TAB PO SCH ×2 (08:38→17:00)
[2019-08-30] MEDS: HEPARIN SOD (PORCINE) 5000UNITS/ML VIAL (J1644 PER 1000UNITS) SC SCH ×2 (08:38→21:49)
[2019-08-30] MEDS: ASCORBIC ACID 500 MG TAB PO SCH (08:38)
[2019-08-30] MEDS: HumaLOG INSULIN (NovoLOG) PER UNIT SC SCH ×4 (08:39→21:00)
[2019-08-30] MEDS: oxyCODONE 5MG TAB PO PRN ×3 (08:39→22:20)
[2019-08-30] MEDS: ACETAMINOPHEN 500 MG TAB PO SCH ×3 (08:40→21:53)
[2019-08-30] MEDS: LISINOPRIL *2.5 MG* TAB PO SCH ×2 (08:40→21:52)
[2019-08-30] MEDS: atenoloL 25 MG TAB PO SCH ×2 (08:41→21:52)
[2019-08-30] MEDS: amLODIPine 5 MG TAB PO SCH (08:41)
[2019-08-30] MEDS: REMEDY PHYTOPLEX Z-GUARD PASTE 113GM TUBE (FROM STOREROOM PRODUCT) TOP SCH ×4 (08:42→21:55)
[2019-08-30] MEDS: POLYVINYL ALCOHOL OPHTH SOLN 15 ML(LIQUITEARS) OU SCH ×3 (08:42→21:54)
[2019-08-30] MEDS: VANICREAM MOISTURIZING SKIN CREAM 113GM TUBE TOP SCH ×2 (08:42→22:19)
[2019-08-30 14:00] VITALS: BP 147/65
--- NOTE | 2019-08-30 15:33 | IPNPDOC ---
PM&R Progress Note DATE OF SERVICE: Aug 30, 2019 Client Relationship Executive Progress Note Subjective: Patient reporting he is having minimal pain in therapy and is getting stronger. REVIEW OF SYSTEMS: The following is a completed review of systems and has been reviewed. Review of systems otherwise unremarkable. PAIN: Patient self reports no pain EYES: No recent vision changes EARS, NOSE, & THROAT: No throat pain, or dysphagia, or rhinorrhea CARDIOVASCULAR: Denies chest pain or palpitations PULMONARY: Denies shortness of breath GASTROINTESTINAL: Denies constipation/diarrhea GENITOURINARY: denies dysuria, +retention MUSCULOSKELETAL: generalized weakness NEUROLOGICAL:+peripheral polyneuropathy HEMATOLOGICAL: +chronic anemia SKIN: bilateral foot ulcers and sacral skin breakdown PSYCHIATRIC: Unremarkable All other review of systems found to be negative. PHYSICAL EXAMINATION: VITAL SIGNS: Please see below. GENERAL: Pleasant and cooperative. No acute distress. HEENT: PERRL. Extraocular movements intact. Clear conjunctiva CARDIOVASCULAR: Regular rate and rhythm. No murmurs, rubs, or gallops LUNGS: Clear to auscultation bilaterally. No wheezes. No rhonchi ABDOMEN: Soft, nontender, nondistended. Positive bowel sounds. Normal active bowel sounds NEUROLOGICAL: Alert and oriented times three. Cranial nerves II through XII grossly intact. Sensation diminished to light touch bilat finger tips and bilat feet EXTREMITIES: 5-\5 strength bilateral upper extremities. 4\5 strength right hip flexor/knee extension ankle DF, 4\5 strength right hip flexor/knee extension ankle DF bilat finger flexion contractures SKIN: not examined today ASSESSMENT:84-year-old M with past medical history of PAD and DM with peripheral polyneuropathy who presents with left foot ulcer s/p debridement PLAN: 1. Rehab- PT/OT advance gait and ADL, strengthen/stretch/maintain ROM all 4limbs, NWB bilat LE except for transfers 2. Neuro- peripheral polyneuropathy due to DM with ambulation impairment and leading to multiple LE skin infections requiring bilat transmetatarsal amputation 3. CArdiac- chronic diastolic CHF c/u fluid restriction, daily weights, lasix and GIULIANO-I -HTN c/u atenolol, will add amlodipine for elevated BPS -PAD c/u ASA and Trental -HLD c/u statin -medicine consulted to assist in overall management 4. Resp: encourage incentive spirometry, monitor for infection -Duonebs 5. Endo: pmh DM with peripheral polyneuropathy c/u Levemir and ISS, adjust accordingly- will Levemir to 34 units qhs for elevated fasting FS 6. GI ppx: pepcid BID 7. Heme: anemia of chronic disease, monitor and transfuse if Hgb <8- today 8.7 -FOBT negative - c/u monitor and provide oral iron 8. DVT px: heparin 9. Pain: gabapentin for peripheral polyneuropathy, Tylenol and oxycodone prn 10. skin- c/u dressing change orders per instructions 11. ID- c/u Keflex for cellulitis, still with leukocytosis around 16, however CRP trending down- will consider ID consult if does not respond to orals however clinically appears well and inflammatory markers improving -s/p left mid-foot debridement 08-25-19, f/u with podiatry outpatient 12. - patient reporting urinary retention and absent urge- UA negative, patient beginning to feel the urge to go with low dose flomax, but retaining, will increase flomax to 0.8 mg 13. Dispo: TBD Allergies Coded Allergies: Penicillins (Verified Allergy, Severe, ANAPHYLAXIS, 08/23/19) erythromycin base (Verified Allergy, Severe, ANAPHYLAXIS, 08/23/19) Vital Signs Vital Signs Date Time Temp Pulse Resp B/P (MAP) Pulse Ox O2 Delivery O2 Flow Rate FiO2 08/30/19 15:10 19 08/30/19 14:00 98.3 56 147/65 (92) 97 Room Air Laboratory Data CBC/BMP Laboratory Tests 08/30/19 08:10 Labs 24H Laboratory Tests 2 08/29/19 16:24: Bedside Glucose (Misc Panel) 177H 08/29/19 20:53: Bedside Glucose (Misc Panel) 152H 08/30/19 06:25: Bedside Glucose (Misc Panel) 136H 08/30/19 08:10: Immature Granulocyte % (Auto) 2.3, Neutrophils (%) (Auto) 77.8H, Lymphocytes (%) (Auto) 10.3L, Monocytes (%) (Auto) 6.6H, Eosinophils (%) (Auto) 2.6, Basophils (%) (Auto) 0.4, Neutrophils # (Auto) 12.8H, Lymphocytes # (Auto) 1.7, Monocytes # (Auto) 1.1H, Eosinophils # (Auto) 0.4, Basophils # (Auto) 0.1, Nucleated Red Blood Cells % (auto) 0.0 08/30/19 11:37: Bedside Glucose (Misc Panel) 117H Microbiology Microbiology 08/27/19 Stool Occult Blood (ANATOLY) - Final, Complete Current Medications Current Medications Current Medications Medications (Trade) Dose Ordered Sig/Stephane Route PRN Reason Start Time Stop Time Status Last Admin Dose Admin Acetaminophen (Tylenol Tab) 1,000 mg TID PO 08/25/19 21:00 08/30/19 15:09 Albuterol/ Ipratropium (Duoneb (Ipr 0.5mg/Alb 2.5mg)) 3 ml RTID NEB 08/25/19 20:00 08/30/19 13:12 Amlodipine Besylate (Norvasc) 5 mg DAILY PO 08/29/19 09:00 08/30/19 08:41 Artificial Tears (Akwa Tears) 2 drop TID OU 08/25/19 21:00 08/30/19 15:10 Ascorbic Acid (Vitamin C) 500 mg DAILY PO 08/26/19 09:00 08/30/19 08:38 Aspirin (Aspirin Chewable) 81 mg QHS PO 08/25/19 21:00 08/29/19 21:00 Atenolol (Tenormin) 25 mg BID PO 08/25/19 21:00 08/30/19 08:41 Atorvastatin Calcium (Lipitor) 10 mg QHS PO 08/25/19 21:00 08/29/19 20:59 Bisacodyl (Dulcolax Suppository) 10 mg DAILYPRN PRN [place] CONSTIPATION 08/25/19 16:15 Cephalexin Monohydrate (Keflex) 500 mg TID PO 08/25/19 21:00 09/01/19 16:01 08/30/19 15:09 Collagenase (Santyl) PER DRESSING INSTRUCTIONS ASDIRECTED TOP 08/25/19 16:15 08/27/19 11:55 Cyanocobalamin (Vitamin B12) 1,000 mcg DAILY PO 08/26/19 09:00 08/30/19 08:37 Dextrose (Dextrose 50%) 25 ml ASDIRECTED PRN IV SEE LABEL COMMENTS 08/25/19 16:15 Docusate Sodium (Colace) 100 mg BID PO 08/25/19 21:00 08/30/19 08:37 Emollient Cream (Vanicream) apply to bilat calves BID TOP 08/26/19 09:00 08/30/19 08:42 Famotidine (Pepcid) 40 mg BID PO 08/25/19 21:00 08/30/19 08:38 Ferrous Sulfate (Ferrous Sulfate) 325 mg BID PO 08/26/19 09:00 08/30/19 08:37 Furosemide (Lasix) 40 mg DAILY PO 08/26/19 09:00 08/30/19 08:37 Gabapentin (Neurontin) 300 mg TID PO 08/25/19 21:00 08/30/19 15:09 Glucagon (Glucagon) 1 mg ASDIRECTED PRN SC SEE LABEL COMMENTS 08/25/19 16:15 Glucose (Glucose) 16 GM ASDIRECTED PRN PO SEE LABEL COMMENTS 08/25/19 16:15 Heparin Sodium (Porcine) (Heparin) 5,000 units Q12H SC 08/25/19 21:00 08/30/19 08:38 Insulin Detemir (Levemir Insulin) 30 units QHS SC 08/25/19 21:00 08/29/19 10:18 DC 08/28/19 20:10 Insulin Detemir (Levemir Insulin) 34 units QHS SC 08/29/19 21:00 08/29/19 20:59 Insulin Human Lispro (HumaLOG INSULIN) SEE PROTOCOL TABLE AC SC 08/25/19 17:30 08/30/19 11:54 Insulin Human Lispro (HumaLOG INSULIN) SEE PROTOCOL TABLE QHS SC 08/25/19 21:00 Lactobacillus Acidophilus (Bacid) 1 ea TID PO 08/25/19 21:00 08/30/19 15:09 Lisinopril (Prinivil) 2.5 mg BID PO 08/25/19 21:00 08/30/19 08:40 Magnesium Oxide (Mag-Ox) 400 mg BID PO 08/25/19 21:00 08/30/19 08:37 Multivitamins (Ocuvite(I-Tashi)) 1 tab DAILY PO 08/26/19 09:00 08/30/19 08:38 Oxycodone HCl (Roxicodone, Oxyir) 5 mg Q4HP PRN PO PAIN 08/25/19 16:15 08/30/19 15:10 Pentoxifylline (TRENtal) 400 mg BID@08,18 PO 08/25/19 18:00 08/30/19 08:38 Prednisone (Deltasone) 2.5 mg BID PO 08/25/19 21:00 08/30/19 08:37 Senna (Senokot) 1 tab QHS PO 08/25/19 21:00 08/29/19 21:01 Silver Sulfadiazine (Silvadene 1%) PER DRESSING INSTRUCTIONS ASDIRECTED TOP 08/25/19 16:15 08/27/19 11:55 Tamsulosin HCl (Flomax) 0.4 mg DAILY PO 08/29/19 10:45 08/30/19 13:50 DC 08/30/19 08:37 Tamsulosin HCl (Flomax) 0.8 mg DAILY PO 08/31/19 09:00 RONNIE RIVERA MD Aug 30, 2019 15:33
[2019-08-30] MEDS ORDERED: traMADol 50 MG TAB PO PRN (17:45)
[2019-08-30] MEDS ORDERED: PILL CUTTER 1 EACH XX PRN (18:00)
[2019-08-30 21:00] VITALS: BP 160/80
[2019-08-30] MEDS: LEVEMIR (INSULIN DETEMIR) 1 UNITS/0.01ML SC SCH (21:49)
[2019-08-30] MEDS: ATORVASTATIN 10 MG TAB PO SCH (21:50)
[2019-08-30] MEDS: ASPIRIN 81 MG CHEW TABLET PO SCH (21:50)
[2019-08-30] MEDS: SENNA 8.6 MG TAB (SENOKOT) PO SCH (21:51)
[2019-08-30] MEDS: SILVER SULFADIAZINE 1% CR 50 GM JAR TOP SCH (21:55)
[2019-08-31] MEDS: oxyCODONE 5MG TAB PO PRN (05:39)
[2019-08-31] MEDS: REMEDY PHYTOPLEX Z-GUARD PASTE 113GM TUBE (FROM STOREROOM PRODUCT) TOP SCH ×4 (05:41→22:03)
[2019-08-31 06:00] VITALS: BP 147/66
[2019-08-31] MEDS: IPRATROPIUM 0.5MG/ALBUTEROL 2.5MG INH SOL UD 3ML (DUONEB) NEB SCH ×3 (06:17→19:13)
[2019-08-31 07:18] LABS: BASO # 0.1 10^3/uL (0.0-0.2); BASO % 0.5 % (0.0-1.0); EOS # 0.4 10^3/uL (0.0-0.5); EOS % 2.5 % (0.0-3.0); HEMATOCRIT 25.8 % (42.0-52.0); HEMOGLOBIN 8.4 g/dl (13.5-17.5); LYMPH # 1.6 10^3/uL (1.5-5.0); LYMPH % 10.4 % (24.0-44.0); MEAN CORPUSCULAR HEMOGLOBIN 29.5 pg (27.0-33.0); MEAN CORPUSCULAR HGB CONC 32.6 g/dl (32.0-36.5); MEAN CORPUSCULAR VOLUME 90.5 fl (80.0-96.0); MONO # 1.3 10^3/uL (0.0-0.8); MONO % 8.1 % (0.0-5.0); NEUTROPHILS # 11.7 10^3/uL (1.5-8.5); NEUTROPHILS % 75.5 % (36.0-66.0); PLATELET COUNT, AUTOMATED 363 10^3/uL (150-450); RED BLOOD COUNT 2.85 10^6/uL (4.30-6.10); WHITE BLOOD COUNT 15.4 10^3/uL (4.0-10.0)
[2019-08-31 07:45] LABS: C REACTIVE PROTEIN QUANTITATIV 4.49 MG/DL (0.00-0.30); CALCIUM LEVEL 8.5 MG/DL (8.8-10.2); CREATININE FOR GFR 1.36 MG/DL (0.70-1.30); POTASSIUM SERUM 5.1 MEQ/L (3.5-5.1)
[2019-08-31] MEDS ORDERED: TAMSULOSIN 0.4 MG CAP PO SCH (09:00)
[2019-08-31] MEDS: amLODIPine 5 MG TAB PO SCH (09:09)
[2019-08-31] MEDS: HEPARIN SOD (PORCINE) 5000UNITS/ML VIAL (J1644 PER 1000UNITS) SC SCH ×2 (09:09→22:02)
[2019-08-31] MEDS: ASCORBIC ACID 500 MG TAB PO SCH (09:09)
[2019-08-31] MEDS: MAGNESIUM OXIDE 400 MG TAB (MAG-OX) PO SCH ×2 (09:10→22:01)
[2019-08-31] MEDS: CEPHALEXIN 500 MG CAP PO SCH ×3 (09:10→22:11)
[2019-08-31] MEDS: FERROUS SULFATE 325MG TAB PO SCH ×2 (09:10→22:01)
[2019-08-31] MEDS: OCUVITE 1 TAB PO SCH (09:10)
[2019-08-31] MEDS: LACTOBACILLUS ACIDOPHILUS CAP (BACID) PO SCH ×3 (09:10→22:01)
[2019-08-31] MEDS: predniSONE 2.5 MG TAB PO SCH ×2 (09:10→21:59)
[2019-08-31] MEDS: PENTOXIFYLLINE 400 MG TAB PO SCH ×2 (09:10→17:14)
[2019-08-31] MEDS: GABAPENTIN 300 MG CAP PO SCH ×3 (09:10→22:01)
[2019-08-31] MEDS: CYANOCOBALAMIN 500 MCG TAB PO SCH (09:11)
[2019-08-31] MEDS: FUROSEMIDE 40 MG TAB PO SCH (09:11)
[2019-08-31] MEDS: LISINOPRIL *2.5 MG* TAB PO SCH ×2 (09:11→22:00)
[2019-08-31] MEDS: ACETAMINOPHEN 500 MG TAB PO SCH ×3 (09:11→22:00)
[2019-08-31] MEDS: FAMOTIDINE 20 MG TAB PO SCH ×2 (09:11→22:00)
[2019-08-31] MEDS: atenoloL 25 MG TAB PO SCH ×2 (09:12→21:00)
[2019-08-31] MEDS: HumaLOG INSULIN (NovoLOG) PER UNIT SC SCH ×4 (09:12→21:00)
[2019-08-31] MEDS: DOCUSATE SODIUM 100 MG CAP PO SCH ×2 (09:12→21:59)
[2019-08-31] MEDS: VANICREAM MOISTURIZING SKIN CREAM 113GM TUBE TOP SCH ×2 (09:13→22:03)
[2019-08-31] MEDS: POLYVINYL ALCOHOL OPHTH SOLN 15 ML(LIQUITEARS) OU SCH ×3 (09:13→22:02)
[2019-08-31 14:00] VITALS: BP 98/50
[2019-08-31 21:30] VITALS: BP 98/55
[2019-08-31] MEDS: SENNA 8.6 MG TAB (SENOKOT) PO SCH (22:01)
[2019-08-31] MEDS: ASPIRIN 81 MG CHEW TABLET PO SCH (22:01)
[2019-08-31] MEDS: ATORVASTATIN 10 MG TAB PO SCH (22:01)
[2019-08-31] MEDS: LEVEMIR (INSULIN DETEMIR) 1 UNITS/0.01ML SC SCH (22:02)
[2019-09-01] MEDS: REMEDY PHYTOPLEX Z-GUARD PASTE 113GM TUBE (FROM STOREROOM PRODUCT) TOP SCH ×4 (06:49→22:28)
[2019-09-01] MEDS: IPRATROPIUM 0.5MG/ALBUTEROL 2.5MG INH SOL UD 3ML (DUONEB) NEB SCH ×3 (07:10→20:18)
[2019-09-01 08:00] VITALS: BP 116/56
[2019-09-01] MEDS: HumaLOG INSULIN (NovoLOG) PER UNIT SC SCH ×4 (09:12→21:00)
[2019-09-01] MEDS: DOCUSATE SODIUM 100 MG CAP PO SCH ×2 (09:12→22:07)
[2019-09-01] MEDS: ASCORBIC ACID 500 MG TAB PO SCH (09:12)
[2019-09-01] MEDS: CYANOCOBALAMIN 500 MCG TAB PO SCH (09:12)
[2019-09-01] MEDS: MAGNESIUM OXIDE 400 MG TAB (MAG-OX) PO SCH ×2 (09:13→22:25)
[2019-09-01] MEDS: PENTOXIFYLLINE 400 MG TAB PO SCH ×2 (09:13→17:47)
[2019-09-01] MEDS: CEPHALEXIN 500 MG CAP PO SCH ×2 (09:13→17:48)
[2019-09-01] MEDS: OCUVITE 1 TAB PO SCH (09:13)
[2019-09-01] MEDS: predniSONE 2.5 MG TAB PO SCH ×2 (09:13→22:29)
[2019-09-01] MEDS: atenoloL 25 MG TAB PO SCH ×2 (09:13→22:37)
[2019-09-01] MEDS: ACETAMINOPHEN 500 MG TAB PO SCH ×3 (09:14→22:25)
[2019-09-01] MEDS: FUROSEMIDE 40 MG TAB PO SCH (09:14)
[2019-09-01] MEDS: TAMSULOSIN 0.4 MG CAP PO SCH (09:15)
[2019-09-01] MEDS: LISINOPRIL *2.5 MG* TAB PO SCH ×2 (09:15→22:26)
[2019-09-01] MEDS: amLODIPine 5 MG TAB PO SCH (09:15)
[2019-09-01] MEDS: LACTOBACILLUS ACIDOPHILUS CAP (BACID) PO SCH ×3 (09:15→22:25)
[2019-09-01] MEDS: FERROUS SULFATE 325MG TAB PO SCH ×2 (09:15→22:31)
[2019-09-01] MEDS: GABAPENTIN 300 MG CAP PO SCH ×3 (09:15→22:26)
[2019-09-01] MEDS: FAMOTIDINE 20 MG TAB PO SCH ×2 (09:16→22:26)
[2019-09-01] MEDS: oxyCODONE 5MG TAB PO PRN (09:16)
[2019-09-01] MEDS: HEPARIN SOD (PORCINE) 5000UNITS/ML VIAL (J1644 PER 1000UNITS) SC SCH ×2 (09:16→22:27)
[2019-09-01] MEDS: POLYVINYL ALCOHOL OPHTH SOLN 15 ML(LIQUITEARS) OU SCH ×3 (09:17→22:27)
[2019-09-01] MEDS: VANICREAM MOISTURIZING SKIN CREAM 113GM TUBE TOP SCH ×2 (09:17→22:28)
[2019-09-01 14:00] VITALS: BP 119/59
[2019-09-01 20:00] VITALS: BP 103/53
[2019-09-01 22:00] VITALS: BP 110/50
[2019-09-01] MEDS: SENNA 8.6 MG TAB (SENOKOT) PO SCH (22:07)
[2019-09-01] MEDS: ASPIRIN 81 MG CHEW TABLET PO SCH (22:26)
[2019-09-01] MEDS: LEVEMIR (INSULIN DETEMIR) 1 UNITS/0.01ML SC SCH (22:27)
[2019-09-01] MEDS: ATORVASTATIN 10 MG TAB PO SCH (22:29)
[2019-09-02 06:00] VITALS: BP 103/52
[2019-09-02] MEDS: REMEDY PHYTOPLEX Z-GUARD PASTE 113GM TUBE (FROM STOREROOM PRODUCT) TOP SCH ×4 (06:00→21:58)
[2019-09-02] MEDS: IPRATROPIUM 0.5MG/ALBUTEROL 2.5MG INH SOL UD 3ML (DUONEB) NEB SCH ×3 (07:32→19:56)
[2019-09-02 07:45] LABS: BASO # 0.1 10^3/uL (0.0-0.2); BASO % 0.4 % (0.0-1.0); EOS # 0.3 10^3/uL (0.0-0.5); HEMATOCRIT 24.8 % (42.0-52.0); HEMOGLOBIN 7.8 g/dl (13.5-17.5); LYMPH # 1.3 10^3/uL (1.5-5.0); MEAN CORPUSCULAR HEMOGLOBIN 28.8 pg (27.0-33.0); MEAN CORPUSCULAR HGB CONC 31.5 g/dl (32.0-36.5); MEAN CORPUSCULAR VOLUME 91.5 fl (80.0-96.0); MONO # 1.1 10^3/uL (0.0-0.8); MONO % 7.8 % (0.0-5.0); NEUTROPHILS # 11.1 10^3/uL (1.5-8.5); NEUTROPHILS % 78.3 % (36.0-66.0); PLATELET COUNT, AUTOMATED 353 10^3/uL (150-450); RED BLOOD COUNT 2.71 10^6/uL (4.30-6.10); WHITE BLOOD COUNT 14.2 10^3/uL (4.0-10.0)
[2019-09-02 08:06] LABS: C REACTIVE PROTEIN QUANTITATIV 4.19 MG/DL (0.00-0.30); CALCIUM LEVEL 8.4 MG/DL (8.8-10.2); CREATININE FOR GFR 1.54 MG/DL (0.70-1.30); GLOMERULAR FILTRATION RATE 45.9 (>35); POTASSIUM SERUM 5.3 MEQ/L (3.5-5.1)
[2019-09-02] MEDS: DOCUSATE SODIUM 100 MG CAP PO SCH ×2 (08:42→21:55)
[2019-09-02] MEDS: oxyCODONE 5MG TAB PO PRN ×2 (08:43→21:54)
[2019-09-02] MEDS: TAMSULOSIN 0.4 MG CAP PO SCH (08:44)
[2019-09-02] MEDS: GABAPENTIN 300 MG CAP PO SCH ×3 (08:44→21:54)
[2019-09-02] MEDS: LISINOPRIL *2.5 MG* TAB PO SCH ×2 (08:44→21:53)
[2019-09-02] MEDS: PENTOXIFYLLINE 400 MG TAB PO SCH ×2 (08:44→17:50)
[2019-09-02] MEDS: FERROUS SULFATE 325MG TAB PO SCH ×2 (08:44→21:55)
[2019-09-02] MEDS: predniSONE 2.5 MG TAB PO SCH ×2 (08:44→21:53)
[2019-09-02] MEDS: MAGNESIUM OXIDE 400 MG TAB (MAG-OX) PO SCH ×2 (08:45→21:55)
[2019-09-02] MEDS: ASCORBIC ACID 500 MG TAB PO SCH (08:45)
[2019-09-02] MEDS: OCUVITE 1 TAB PO SCH (08:45)
[2019-09-02] MEDS: ACETAMINOPHEN 500 MG TAB PO SCH ×3 (08:45→21:54)
[2019-09-02] MEDS: LACTOBACILLUS ACIDOPHILUS CAP (BACID) PO SCH ×3 (08:45→21:55)
[2019-09-02] MEDS: FAMOTIDINE 20 MG TAB PO SCH ×2 (08:45→21:55)
[2019-09-02] MEDS: CYANOCOBALAMIN 500 MCG TAB PO SCH (08:46)
[2019-09-02] MEDS: amLODIPine 5 MG TAB PO SCH (08:46)
[2019-09-02] MEDS: atenoloL 25 MG TAB PO SCH ×2 (08:46→21:55)
[2019-09-02] MEDS: FUROSEMIDE 40 MG TAB PO SCH (08:46)
[2019-09-02] MEDS: HumaLOG INSULIN (NovoLOG) PER UNIT SC SCH ×4 (08:47→21:00)
[2019-09-02] MEDS: POLYVINYL ALCOHOL OPHTH SOLN 15 ML(LIQUITEARS) OU SCH ×3 (08:47→21:57)
[2019-09-02] MEDS: HEPARIN SOD (PORCINE) 5000UNITS/ML VIAL (J1644 PER 1000UNITS) SC SCH ×2 (08:47→21:56)
[2019-09-02] MEDS: VANICREAM MOISTURIZING SKIN CREAM 113GM TUBE TOP SCH ×2 (08:48→21:57)
[2019-09-02 14:00] VITALS: BP 108/54
[2019-09-02 21:00] VITALS: BP 119/58
[2019-09-02] MEDS: LEVEMIR (INSULIN DETEMIR) 1 UNITS/0.01ML SC SCH (21:52)
[2019-09-02] MEDS: ASPIRIN 81 MG CHEW TABLET PO SCH (21:53)
[2019-09-02] MEDS: ATORVASTATIN 10 MG TAB PO SCH (21:56)
[2019-09-02] MEDS: SENNA 8.6 MG TAB (SENOKOT) PO SCH (21:56)
[2019-09-02] MEDS: SANTYL OINT 30GM TOP SCH (21:59)
[2019-09-03] MEDS: REMEDY PHYTOPLEX Z-GUARD PASTE 113GM TUBE (FROM STOREROOM PRODUCT) TOP SCH ×4 (04:25→21:27)
[2019-09-03] MEDS: oxyCODONE 5MG TAB PO PRN ×3 (04:25→16:27)
[2019-09-03 06:00] VITALS: BP 110/59
[2019-09-03] MEDS: HumaLOG INSULIN (NovoLOG) PER UNIT SC SCH ×4 (06:59→21:00)
[2019-09-03] MEDS: IPRATROPIUM 0.5MG/ALBUTEROL 2.5MG INH SOL UD 3ML (DUONEB) NEB SCH ×3 (07:21→19:35)
[2019-09-03] MEDS: HEPARIN SOD (PORCINE) 5000UNITS/ML VIAL (J1644 PER 1000UNITS) SC SCH ×2 (08:20→21:23)
[2019-09-03] MEDS: FERROUS SULFATE 325MG TAB PO SCH ×2 (08:20→21:25)
[2019-09-03] MEDS: GABAPENTIN 300 MG CAP PO SCH ×3 (08:21→21:25)
[2019-09-03] MEDS: OCUVITE 1 TAB PO SCH (08:21)
[2019-09-03] MEDS: predniSONE 2.5 MG TAB PO SCH ×2 (08:21→21:24)
[2019-09-03] MEDS: MAGNESIUM OXIDE 400 MG TAB (MAG-OX) PO SCH ×2 (08:21→21:25)
[2019-09-03] MEDS: DOCUSATE SODIUM 100 MG CAP PO SCH ×2 (08:21→21:24)
[2019-09-03] MEDS: TAMSULOSIN 0.4 MG CAP PO SCH (08:21)
[2019-09-03] MEDS: LACTOBACILLUS ACIDOPHILUS CAP (BACID) PO SCH ×3 (08:21→21:26)
[2019-09-03] MEDS: ASCORBIC ACID 500 MG TAB PO SCH (08:21)
[2019-09-03] MEDS: FAMOTIDINE 20 MG TAB PO SCH ×2 (08:22→21:24)
[2019-09-03] MEDS: amLODIPine 5 MG TAB PO SCH (08:22)
[2019-09-03] MEDS: PENTOXIFYLLINE 400 MG TAB PO SCH ×2 (08:22→17:05)
[2019-09-03] MEDS: FUROSEMIDE 40 MG TAB PO SCH (08:22)
[2019-09-03] MEDS: LISINOPRIL *2.5 MG* TAB PO SCH ×2 (08:23→21:23)
[2019-09-03] MEDS: atenoloL 25 MG TAB PO SCH ×2 (08:23→21:00)
[2019-09-03] MEDS: CYANOCOBALAMIN 500 MCG TAB PO SCH (08:24)
[2019-09-03] MEDS: ACETAMINOPHEN 500 MG TAB PO SCH ×3 (08:24→21:26)
[2019-09-03] MEDS: POLYVINYL ALCOHOL OPHTH SOLN 15 ML(LIQUITEARS) OU SCH ×3 (08:24→21:27)
[2019-09-03] MEDS: VANICREAM MOISTURIZING SKIN CREAM 113GM TUBE TOP SCH ×2 (08:25→21:00)
[2019-09-03 14:00] VITALS: BP 107/58
[2019-09-03 20:32] VITALS: BP 100/59
[2019-09-03] MEDS: ATORVASTATIN 10 MG TAB PO SCH (21:24)
[2019-09-03] MEDS: ASPIRIN 81 MG CHEW TABLET PO SCH (21:25)
[2019-09-03] MEDS: SENNA 8.6 MG TAB (SENOKOT) PO SCH (21:25)
[2019-09-03] MEDS: LEVEMIR (INSULIN DETEMIR) 1 UNITS/0.01ML SC SCH (21:26)
[2019-09-04] MEDS: REMEDY PHYTOPLEX Z-GUARD PASTE 113GM TUBE (FROM STOREROOM PRODUCT) TOP SCH ×4 (05:11→20:46)
[2019-09-04 06:00] VITALS: BP 95/45
[2019-09-04] MEDS: IPRATROPIUM 0.5MG/ALBUTEROL 2.5MG INH SOL UD 3ML (DUONEB) NEB SCH ×3 (07:25→19:23)
[2019-09-04] MEDS: amLODIPine 5 MG TAB PO SCH (07:38)
[2019-09-04] MEDS: MAGNESIUM OXIDE 400 MG TAB (MAG-OX) PO SCH ×2 (07:42→20:33)
[2019-09-04] MEDS: HEPARIN SOD (PORCINE) 5000UNITS/ML VIAL (J1644 PER 1000UNITS) SC SCH ×2 (07:42→20:32)
[2019-09-04] MEDS: LISINOPRIL *2.5 MG* TAB PO SCH ×2 (07:42→20:35)
[2019-09-04] MEDS: OCUVITE 1 TAB PO SCH (07:42)
[2019-09-04] MEDS: FAMOTIDINE 20 MG TAB PO SCH ×2 (07:43→20:33)
[2019-09-04] MEDS: FUROSEMIDE 40 MG TAB PO SCH (07:43)
[2019-09-04] MEDS: FERROUS SULFATE 325MG TAB PO SCH ×2 (07:43→20:33)
[2019-09-04] MEDS: ASCORBIC ACID 500 MG TAB PO SCH (07:43)
[2019-09-04] MEDS: PENTOXIFYLLINE 400 MG TAB PO SCH ×2 (07:43→17:05)
[2019-09-04] MEDS: ACETAMINOPHEN 500 MG TAB PO SCH ×3 (07:44→20:34)
[2019-09-04] MEDS: predniSONE 2.5 MG TAB PO SCH ×2 (07:44→20:34)
[2019-09-04] MEDS: CYANOCOBALAMIN 500 MCG TAB PO SCH (07:44)
[2019-09-04] MEDS: TAMSULOSIN 0.4 MG CAP PO SCH (07:44)
[2019-09-04] MEDS: LACTOBACILLUS ACIDOPHILUS CAP (BACID) PO SCH ×3 (07:44→20:33)
[2019-09-04] MEDS: GABAPENTIN 300 MG CAP PO SCH ×3 (07:44→20:32)
[2019-09-04] MEDS: HumaLOG INSULIN (NovoLOG) PER UNIT SC SCH ×4 (07:45→20:35)
[2019-09-04] MEDS: DOCUSATE SODIUM 100 MG CAP PO SCH ×2 (07:45→20:33)
[2019-09-04] MEDS: atenoloL 25 MG TAB PO SCH ×2 (07:45→20:34)
[2019-09-04] MEDS: POLYVINYL ALCOHOL OPHTH SOLN 15 ML(LIQUITEARS) OU SCH ×3 (07:52→20:36)
[2019-09-04] MEDS: VANICREAM MOISTURIZING SKIN CREAM 113GM TUBE TOP SCH ×2 (07:52→20:36)
[2019-09-04 14:00] VITALS: BP 100/47
[2019-09-04 20:00] VITALS: BP 105/52
[2019-09-04] MEDS: LEVEMIR (INSULIN DETEMIR) 1 UNITS/0.01ML SC SCH (20:32)
[2019-09-04] MEDS: SENNA 8.6 MG TAB (SENOKOT) PO SCH (20:33)
[2019-09-04] MEDS: ASPIRIN 81 MG CHEW TABLET PO SCH (20:33)
[2019-09-04] MEDS: ATORVASTATIN 10 MG TAB PO SCH (20:33)
[2019-09-05] MEDS: REMEDY PHYTOPLEX Z-GUARD PASTE 113GM TUBE (FROM STOREROOM PRODUCT) TOP SCH ×4 (05:36→21:55)
[2019-09-05 06:00] VITALS: BP 111/54
[2019-09-05] MEDS: IPRATROPIUM 0.5MG/ALBUTEROL 2.5MG INH SOL UD 3ML (DUONEB) NEB SCH ×3 (08:02→19:32)
[2019-09-05] MEDS: HEPARIN SOD (PORCINE) 5000UNITS/ML VIAL (J1644 PER 1000UNITS) SC SCH ×2 (08:34→21:21)
[2019-09-05] MEDS: FERROUS SULFATE 325MG TAB PO SCH ×2 (08:35→21:21)
[2019-09-05] MEDS: OCUVITE 1 TAB PO SCH (08:35)
[2019-09-05] MEDS: TAMSULOSIN 0.4 MG CAP PO SCH (08:35)
[2019-09-05] MEDS: LACTOBACILLUS ACIDOPHILUS CAP (BACID) PO SCH ×3 (08:35→21:23)
[2019-09-05] MEDS: predniSONE 2.5 MG TAB PO SCH ×2 (08:35→21:24)
[2019-09-05] MEDS: GABAPENTIN 300 MG CAP PO SCH ×3 (08:35→21:21)
[2019-09-05] MEDS: DOCUSATE SODIUM 100 MG CAP PO SCH ×2 (08:35→21:21)
[2019-09-05] MEDS: HumaLOG INSULIN (NovoLOG) PER UNIT SC SCH ×4 (08:35→20:23)
[2019-09-05] MEDS: amLODIPine 5 MG TAB PO SCH (08:35)
[2019-09-05] MEDS: CYANOCOBALAMIN 500 MCG TAB PO SCH (08:36)
[2019-09-05] MEDS: ACETAMINOPHEN 500 MG TAB PO SCH ×3 (08:36→21:21)
[2019-09-05] MEDS: PENTOXIFYLLINE 400 MG TAB PO SCH ×2 (08:36→17:49)
[2019-09-05] MEDS: MAGNESIUM OXIDE 400 MG TAB (MAG-OX) PO SCH ×2 (08:36→21:23)
[2019-09-05] MEDS: ASCORBIC ACID 500 MG TAB PO SCH (08:36)
[2019-09-05] MEDS: FAMOTIDINE 20 MG TAB PO SCH ×2 (08:37→21:24)
[2019-09-05] MEDS: atenoloL 25 MG TAB PO SCH ×2 (08:37→21:23)
[2019-09-05] MEDS: LISINOPRIL *2.5 MG* TAB PO SCH ×2 (08:37→21:23)
[2019-09-05] MEDS: FUROSEMIDE 40 MG TAB PO SCH (08:37)
[2019-09-05] MEDS: POLYVINYL ALCOHOL OPHTH SOLN 15 ML(LIQUITEARS) OU SCH ×3 (08:38→21:25)
[2019-09-05] MEDS: VANICREAM MOISTURIZING SKIN CREAM 113GM TUBE TOP SCH ×2 (08:40→21:25)
[2019-09-05] MEDS: oxyCODONE 5MG TAB PO PRN (11:59)
[2019-09-05 12:42] LABS: BASO # 0.1 10^3/uL (0.0-0.2); BASO % 0.3 % (0.0-1.0); EOS # 0.4 10^3/uL (0.0-0.5); EOS % 2.4 % (0.0-3.0); HEMATOCRIT 26.6 % (42.0-52.0); HEMOGLOBIN 8.2 g/dl (13.5-17.5); LYMPH % 6.4 % (24.0-44.0); MEAN CORPUSCULAR HEMOGLOBIN 28.9 pg (27.0-33.0); MEAN CORPUSCULAR HGB CONC 30.8 g/dl (32.0-36.5); MEAN CORPUSCULAR VOLUME 93.7 fl (80.0-96.0); MONO # 1.2 10^3/uL (0.0-0.8); MONO % 7.6 % (0.0-5.0); NEUTROPHILS # 12.9 10^3/uL (1.5-8.5); NEUTROPHILS % 82.2 % (36.0-66.0); PLATELET COUNT, AUTOMATED 417 10^3/uL (150-450); RED BLOOD COUNT 2.84 10^6/uL (4.30-6.10); WHITE BLOOD COUNT 15.7 10^3/uL (4.0-10.0)
[2019-09-05 13:11] LABS: C REACTIVE PROTEIN QUANTITATIV 2.8 MG/DL (0.00-0.30); CALCIUM LEVEL 9.3 MG/DL (8.8-10.2); CREATININE FOR GFR 1.57 MG/DL (0.70-1.30); GLOMERULAR FILTRATION RATE 44.9 (>35); POTASSIUM SERUM 5.6 MEQ/L (3.5-5.1)
[2019-09-05 14:00] VITALS: BP 99/51
[2019-09-05] MEDS: SANTYL OINT 30GM TOP SCH (15:41)
--- NOTE | 2019-09-05 16:12 | IPNPDOC ---
PM&R Progress Note DATE OF SERVICE: Aug 31, 2019 Instructor Physical Education Progress Note Subjective: Patient reporting he does not have the urge to urinate and reports this has been a problem at home for a while where he will leak after he hasn't gone for many hours. REVIEW OF SYSTEMS: The following is a completed review of systems and has been reviewed. Review of systems otherwise unremarkable. PAIN: Patient self reports no pain EYES: No recent vision changes EARS, NOSE, & THROAT: No throat pain, or dysphagia, or rhinorrhea CARDIOVASCULAR: Denies chest pain or palpitations PULMONARY: Denies shortness of breath GASTROINTESTINAL: Denies constipation/diarrhea GENITOURINARY: denies dysuria, +retention MUSCULOSKELETAL: generalized weakness NEUROLOGICAL:+peripheral polyneuropathy HEMATOLOGICAL: +chronic anemia SKIN: bilateral foot ulcers and sacral skin breakdown PSYCHIATRIC: Unremarkable All other review of systems found to be negative. PHYSICAL EXAMINATION: VITAL SIGNS: Please see below. GENERAL: Pleasant and cooperative. No acute distress. HEENT: PERRL. Extraocular movements intact. Clear conjunctiva CARDIOVASCULAR: Regular rate and rhythm. No murmurs, rubs, or gallops LUNGS: Clear to auscultation bilaterally. No wheezes. No rhonchi ABDOMEN: Soft, nontender, nondistended. Positive bowel sounds. Normal active bowel sounds NEUROLOGICAL: Alert and oriented times three. Cranial nerves II through XII grossly intact. Sensation diminished to light touch bilat finger tips and bilat feet EXTREMITIES: 5-\5 strength bilateral upper extremities. 4\5 strength right hip flexor/knee extension ankle DF, 4\5 strength right hip flexor/knee extension ankle DF bilat finger flexion contractures SKIN: right midfoot ulcer with exudate and granulation tissue right heel ulcer with granulation and exudative tissue left midfoot two ulcers with necrotic tissue sacrum with multiple areas of friction/shearing open areas ASSESSMENT:84-year-old M with past medical history of PAD and DM with peripheral polyneuropathy who presents with left foot ulcer s/p debridement PLAN: 1. Rehab- PT/OT advance gait and ADL, strengthen/stretch/maintain ROM all 4limbs, NWB bilat LE except for transfers 2. Neuro- peripheral polyneuropathy due to DM with ambulation impairment and leading to multiple LE skin infections requiring bilat transmetatarsal amputation 3. CArdiac- chronic diastolic CHF c/u fluid restriction, daily weights, lasix and GIULIANO-I -HTN c/u atenolol, will add amlodipine for elevated BPS -PAD c/u ASA and Trental -HLD c/u statin -medicine consulted to assist in overall management 4. Resp: encourage incentive spirometry, monitor for infection -Duonebs 5. Endo: pmh DM with peripheral polyneuropathy c/u Levemir and ISS, adjust accordingly- 6. GI ppx: pepcid BID 7. Heme: anemia of chronic disease, monitor and transfuse if Hgb <8- -FOBT negative - c/u monitor and provide oral iron 8. DVT px: heparin 9. Pain: gabapentin for peripheral polyneuropathy, Tylenol and oxycodone prn 10. skin- c/u dressing change orders per instructions- will change Silvadene to Santyl for left midfoot debride necrotic tissue with jenae-wound care ordered to prevent jeane-wound maceration 11. ID- c/u Keflex for cellulitis, still with leukocytosis however CRP trending down- will consider ID consult if does not respond to orals however clinically appears well and inflammatory markers improving -s/p left mid-foot debridement 08-25-19, f/u with podiatry outpatient 12. - patient reporting urinary retention and absent urge- UA negative, patient still retaining upwards of 800cc without urge to go, Irvin placed today for what is likely neurogenic bladder due to diabetic peripheral polyneuropathy 13. Dispo: TBD Allergies Coded Allergies: Penicillins (Verified Allergy, Severe, ANAPHYLAXIS, 08/23/19) erythromycin base (Verified Allergy, Severe, ANAPHYLAXIS, 08/23/19) Vital Signs Vital Signs Date Time Temp Pulse Resp B/P (MAP) Pulse Ox O2 Delivery O2 Flow Rate FiO2 09/05/19 14:00 97.2 96 18 99/51 (67) 97 Room Air Laboratory Data CBC/BMP Laboratory Tests 09/05/19 12:23 Labs 24H Laboratory Tests 2 09/04/19 16:45: Bedside Glucose (Misc Panel) 166H 09/04/19 20:13: Bedside Glucose (Misc Panel) 179H 09/05/19 04:59: Bedside Glucose (Misc Panel) 156H 09/05/19 11:32: Bedside Glucose (Misc Panel) 123H 09/05/19 12:23: Immature Granulocyte % (Auto) 1.1, Neutrophils (%) (Auto) 82.2H, Lymphocytes (%) (Auto) 6.4L, Monocytes (%) (Auto) 7.6H, Eosinophils (%) (Auto) 2.4, Basophils (%) (Auto) 0.3, Neutrophils # (Auto) 12.9H, Lymphocytes # (Auto) 1.0L, Monocytes # (Auto) 1.2H, Eosinophils # (Auto) 0.4, Basophils # (Auto) 0.1, Nucleated Red Blood Cells % (auto) 0.0, Anion Gap 5L, Glomerular Filtration Rate 44.9, Calcium Level 9.3, C-Reactive Protein, Quantitative 2.80H Microbiology Microbiology 08/27/19 Stool Occult Blood (ANATOLY) - Final, Complete Current Medications Current Medications Current Medications Medications (Trade) Dose Ordered Sig/Stephane Route PRN Reason Start Time Stop Time Status Last Admin Dose Admin Acetaminophen (Tylenol Tab) 1,000 mg TID PO 08/25/19 21:00 09/05/19 15:38 Albuterol/ Ipratropium (Duoneb (Ipr 0.5mg/Alb 2.5mg)) 3 ml RTID NEB 08/25/19 20:00 09/05/19 08:02 Amlodipine Besylate (Norvasc) 5 mg DAILY PO 08/29/19 09:00 09/05/19 08:35 Artificial Tears (Akwa Tears) 2 drop TID OU 08/25/19 21:00 09/05/19 08:38 Ascorbic Acid (Vitamin C) 500 mg DAILY PO 08/26/19 09:00 09/05/19 08:36 Aspirin (Aspirin Chewable) 81 mg QHS PO 08/25/19 21:00 09/04/19 20:33 Atenolol (Tenormin) 25 mg BID PO 08/25/19 21:00 09/05/19 08:37 Atorvastatin Calcium (Lipitor) 10 mg QHS PO 08/25/19 21:00 09/04/19 20:33 Bisacodyl (Dulcolax Suppository) 10 mg DAILYPRN PRN [place] CONSTIPATION 08/25/19 16:15 Cephalexin Monohydrate (Keflex) 500 mg TID PO 08/25/19 21:00 09/01/19 16:01 DC 09/01/19 17:48 Collagenase (Santyl) PER DRESSING INSTRUCTIONS ASDIRECTED TOP 08/25/19 16:15 09/05/19 15:41 Cyanocobalamin (Vitamin B12) 1,000 mcg DAILY PO 08/26/19 09:00 09/05/19 08:36 Dextrose (Dextrose 50%) 25 ml ASDIRECTED PRN IV SEE LABEL COMMENTS 08/25/19 16:15 Docusate Sodium (Colace) 100 mg BID PO 08/25/19 21:00 09/05/19 08:35 Emollient Cream (Vanicream) apply to bilat calves BID TOP 08/26/19 09:00 09/05/19 08:40 Famotidine (Pepcid) 40 mg BID PO 08/25/19 21:00 09/05/19 08:37 Ferrous Sulfate (Ferrous Sulfate) 325 mg BID PO 08/26/19 09:00 09/05/19 08:35 Furosemide (Lasix) 40 mg DAILY PO 08/26/19 09:00 09/05/19 08:37 Gabapentin (Neurontin) 300 mg TID PO 08/25/19 21:00 09/05/19 15:38 Glucagon (Glucagon) 1 mg ASDIRECTED PRN SC SEE LABEL COMMENTS 08/25/19 16:15 Glucose (Glucose) 16 GM ASDIRECTED PRN PO SEE LABEL COMMENTS 08/25/19 16:15 Heparin Sodium (Porcine) (Heparin) 5,000 units Q12H SC 08/25/19 21:00 09/05/19 08:34 Insulin Detemir (Levemir Insulin) 30 units QHS SC 08/25/19 21:00 08/29/19 10:18 DC 08/28/19 20:10 Insulin Detemir (Levemir Insulin) 34 units QHS SC 08/29/19 21:00 09/04/19 20:32 Insulin Human Lispro (HumaLOG INSULIN) SEE PROTOCOL TABLE AC SC 08/25/19 17:30 09/05/19 11:57 Insulin Human Lispro (HumaLOG INSULIN) SEE PROTOCOL TABLE QHS SC 08/25/19 21:00 Lactobacillus Acidophilus (Bacid) 1 ea TID PO 08/25/19 21:00 09/05/19 15:38 Lisinopril (Prinivil) 2.5 mg BID PO 08/25/19 21:00 09/05/19 08:37 Magnesium Oxide (Mag-Ox) 400 mg BID PO 08/25/19 21:00 09/05/19 08:36 Multivitamins (Ocuvite(I-Tashi)) 1 tab DAILY PO 08/26/19 09:00 09/05/19 08:35 Oxycodone HCl (Roxicodone, Oxyir) 5 mg Q4HP PRN PO PAIN 08/25/19 16:15 09/05/19 11:59 Pentoxifylline (TRENtal) 400 mg BID@08,18 PO 08/25/19 18:00 09/05/19 08:36 Prednisone (Deltasone) 2.5 mg BID PO 08/25/19 21:00 09/05/19 08:35 Senna (Senokot) 1 tab QHS PO 08/25/19 21:00 09/04/19 20:33 Silver Sulfadiazine (Silvadene 1%) PER DRESSING INSTRUCTIONS ASDIRECTED [facility] 08/25/19 16:15 08/31/19 11:11 DC 08/30/19 21:55 Tamsulosin HCl (Flomax) 0.4 mg DAILY PO 09/01/19 09:00 09/05/19 08:35 Tamsulosin HCl (Flomax) 0.4 mg DAILY PO 08/29/19 10:45 08/30/19 13:50 DC 08/30/19 08:37 Tamsulosin HCl (Flomax) 0.8 mg DAILY PO 08/31/19 09:00 08/31/19 14:56 DC 08/31/19 09:10 Tramadol HCl (Ultram) 25 mg Q4HP PRN PO MODERATE PAIN (PS 5-7) 08/30/19 17:45 08/31/19 11:11 RONNIE NICHOLS MD Sep 05, 2019 16:12
--- NOTE | 2019-09-05 16:15 | IPNPDOC ---
PM&R Progress Note DATE OF SERVICE: Sep 05, 2019 Overhead Distribution Engineer Progress Note Subjective: Patient reporting he is not having much pain in his feet when he does transfers and is agreeable to following with wound care once he leaves here tomorrow. REVIEW OF SYSTEMS: The following is a completed review of systems and has been reviewed. Review of systems otherwise unremarkable. PAIN: Patient self reports no pain EYES: No recent vision changes EARS, NOSE, & THROAT: No throat pain, or dysphagia, or rhinorrhea CARDIOVASCULAR: Denies chest pain or palpitations PULMONARY: Denies shortness of breath GASTROINTESTINAL: Denies constipation/diarrhea GENITOURINARY: denies dysuria, +retention MUSCULOSKELETAL: generalized weakness NEUROLOGICAL:+peripheral polyneuropathy HEMATOLOGICAL: +chronic anemia SKIN: bilateral foot ulcers and sacral skin breakdown PSYCHIATRIC: Unremarkable All other review of systems found to be negative. PHYSICAL EXAMINATION: VITAL SIGNS: Please see below. GENERAL: Pleasant and cooperative. No acute distress. HEENT: PERRL. Extraocular movements intact. Clear conjunctiva CARDIOVASCULAR: Regular rate and rhythm. No murmurs, rubs, or gallops LUNGS: Clear to auscultation bilaterally. No wheezes. No rhonchi ABDOMEN: Soft, nontender, nondistended. Positive bowel sounds. Normal active bowel sounds NEUROLOGICAL: Alert and oriented times three. Cranial nerves II through XII grossly intact. Sensation diminished to light touch bilat finger tips and bilat feet EXTREMITIES: 5-\5 strength bilateral upper extremities. 4\5 strength right hip flexor/knee extension ankle DF, 4\5 strength right hip flexor/knee extension ankle DF bilat finger flexion contractures SKIN: right midfoot ulcer with exudate and granulation tissue right heel ulcer with granulation and exudative tissue left midfoot two ulcers with soft necrotic tissue (non odorous) sacrum with multiple areas of friction/shearing open areas ASSESSMENT:84-year-old M with past medical history of PAD and DM with peripheral polyneuropathy who presents with left foot ulcer s/p debridement PLAN: 1. Rehab- PT/OT advance gait and ADL, strengthen/stretch/maintain ROM all 4limbs, NWB bilat LE except for transfers 2. Neuro- peripheral polyneuropathy due to DM with ambulation impairment and leading to multiple LE skin infections requiring bilat transmetatarsal amputation 3. CArdiac- chronic diastolic CHF c/u fluid restriction, daily weights, lasix and GIULIANO-I -HTN c/u atenolol, will add amlodipine for elevated BPS -PAD c/u ASA and Trental -HLD c/u statin -medicine consulted to assist in overall management 4. Resp: encourage incentive spirometry, monitor for infection -Duonebs 5. Endo: pmh DM with peripheral polyneuropathy c/u Levemir and ISS, adjust accordingly- 6. GI ppx: pepcid BID 7. Heme: anemia of chronic disease, monitor and transfuse if Hgb <8- -FOBT negative - c/u monitor and provide oral iron 8. DVT px: heparin 9. Pain: gabapentin for peripheral polyneuropathy, Tylenol and oxycodone prn 10. skin- c/u dressing change orders per instructions- will change Silvadene to Santyl for left midfoot debride necrotic tissue with jenae-wound care ordered to prevent jeane-wound maceration- will f/u with podiatry and will refer to wound care physicisn 11. ID- c/u Keflex for cellulitis, still with leukocytosis however CRP still trending down- will consider ID consult if does not respond to orals however clinically appears well and inflammatory markers improving -s/p left mid-foot debridement 08-25-19, f/u with podiatry outpatient 12. -[facility] 08-31-19 for neurogenic due to diabetic peripheral polyneuropathy-will refer to urology 13. Dispo: 09-06-19 to home, progressing towards goals Allergies Coded Allergies: Penicillins (Verified Allergy, Severe, ANAPHYLAXIS, 08/23/19) erythromycin base (Verified Allergy, Severe, ANAPHYLAXIS, 08/23/19) Vital Signs Vital Signs Date Time Temp Pulse Resp B/P (MAP) Pulse Ox O2 Delivery O2 Flow Rate FiO2 09/05/19 14:00 97.2 96 18 99/51 (67) 97 Room Air Laboratory Data CBC/BMP Laboratory Tests 09/05/19 12:23 Labs 24H Laboratory Tests 2 09/04/19 16:45: Bedside Glucose (Misc Panel) 166H 09/04/19 20:13: Bedside Glucose (Misc Panel) 179H 09/05/19 04:59: Bedside Glucose (Misc Panel) 156H 09/05/19 11:32: Bedside Glucose (Misc Panel) 123H 09/05/19 12:23: Immature Granulocyte % (Auto) 1.1, Neutrophils (%) (Auto) 82.2H, Lymphocytes (%) (Auto) 6.4L, Monocytes (%) (Auto) 7.6H, Eosinophils (%) (Auto) 2.4, Basophils (%) (Auto) 0.3, Neutrophils # (Auto) 12.9H, Lymphocytes # (Auto) 1.0L, Monocytes # (Auto) 1.2H, Eosinophils # (Auto) 0.4, Basophils # (Auto) 0.1, Nucleated Red Blood Cells % (auto) 0.0, Anion Gap 5L, Glomerular Filtration Rate 44.9, Calcium Level 9.3, C-Reactive Protein, Quantitative 2.80H Microbiology Microbiology 08/27/19 Stool Occult Blood (ANATOLY) - Final, Complete Current Medications Current Medications Current Medications Medications (Trade) Dose Ordered Sig/Stephane Route PRN Reason Start Time Stop Time Status Last Admin Dose Admin Acetaminophen (Tylenol Tab) 1,000 mg TID PO 08/25/19 21:00 09/05/19 15:38 Albuterol/ Ipratropium (Duoneb (Ipr 0.5mg/Alb 2.5mg)) 3 ml RTID NEB 08/25/19 20:00 09/05/19 08:02 Amlodipine Besylate (Norvasc) 5 mg DAILY PO 08/29/19 09:00 09/05/19 08:35 Artificial Tears (Akwa Tears) 2 drop TID OU 08/25/19 21:00 09/05/19 08:38 Ascorbic Acid (Vitamin C) 500 mg DAILY PO 08/26/19 09:00 09/05/19 08:36 Aspirin (Aspirin Chewable) 81 mg QHS PO 08/25/19 21:00 09/04/19 20:33 Atenolol (Tenormin) 25 mg BID PO 08/25/19 21:00 09/05/19 08:37 Atorvastatin Calcium (Lipitor) 10 mg QHS PO 08/25/19 21:00 09/04/19 20:33 Bisacodyl (Dulcolax Suppository) 10 mg DAILYPRN PRN [place] CONSTIPATION 08/25/19 16:15 Cephalexin Monohydrate (Keflex) 500 mg TID PO 08/25/19 21:00 09/01/19 16:01 DC 09/01/19 17:48 Collagenase (Santyl) PER DRESSING INSTRUCTIONS ASDIRECTED TOP 08/25/19 16:15 09/05/19 15:41 Cyanocobalamin (Vitamin B12) 1,000 mcg DAILY PO 08/26/19 09:00 09/05/19 08:36 Dextrose (Dextrose 50%) 25 ml ASDIRECTED PRN IV SEE LABEL COMMENTS 08/25/19 16:15 Docusate Sodium (Colace) 100 mg BID PO 08/25/19 21:00 09/05/19 08:35 Emollient Cream (Vanicream) apply to bilat calves BID TOP 08/26/19 09:00 09/05/19 08:40 Famotidine (Pepcid) 40 mg BID PO 08/25/19 21:00 09/05/19 08:37 Ferrous Sulfate (Ferrous Sulfate) 325 mg BID PO 08/26/19 09:00 09/05/19 08:35 Furosemide (Lasix) 40 mg DAILY PO 08/26/19 09:00 09/05/19 08:37 Gabapentin (Neurontin) 300 mg TID PO 08/25/19 21:00 09/05/19 15:38 Glucagon (Glucagon) 1 mg ASDIRECTED PRN SC SEE LABEL COMMENTS 08/25/19 16:15 Glucose (Glucose) 16 GM ASDIRECTED PRN PO SEE LABEL COMMENTS 08/25/19 16:15 Heparin Sodium (Porcine) (Heparin) 5,000 units Q12H SC 08/25/19 21:00 09/05/19 08:34 Insulin Detemir (Levemir Insulin) 30 units QHS SC 08/25/19 21:00 08/29/19 10:18 DC 08/28/19 20:10 Insulin Detemir (Levemir Insulin) 34 units QHS SC 08/29/19 21:00 09/04/19 20:32 Insulin Human Lispro (HumaLOG INSULIN) SEE PROTOCOL TABLE AC SC 08/25/19 17:30 09/05/19 11:57 Insulin Human Lispro (HumaLOG INSULIN) SEE PROTOCOL TABLE QHS SC 08/25/19 21:00 Lactobacillus Acidophilus (Bacid) 1 ea TID PO 08/25/19 21:00 09/05/19 15:38 Lisinopril (Prinivil) 2.5 mg BID PO 08/25/19 21:00 09/05/19 08:37 Magnesium Oxide (Mag-Ox) 400 mg BID PO 08/25/19 21:00 09/05/19 08:36 Multivitamins (Ocuvite(I-Tashi)) 1 tab DAILY PO 08/26/19 09:00 09/05/19 08:35 Oxycodone HCl (Roxicodone, Oxyir) 5 mg Q4HP PRN PO PAIN 08/25/19 16:15 09/05/19 11:59 Pentoxifylline (TRENtal) 400 mg BID@08,18 PO 08/25/19 18:00 09/05/19 08:36 Prednisone (Deltasone) 2.5 mg BID PO 08/25/19 21:00 09/05/19 08:35 Senna (Senokot) 1 tab QHS PO 08/25/19 21:00 09/04/19 20:33 Silver Sulfadiazine (Silvadene 1%) PER DRESSING INSTRUCTIONS ASDIRECTED [facility] 08/25/19 16:15 08/31/19 11:11 DC 08/30/19 21:55 Tamsulosin HCl (Flomax) 0.4 mg DAILY PO 09/01/19 09:00 09/05/19 08:35 Tamsulosin HCl (Flomax) 0.4 mg DAILY PO 08/29/19 10:45 08/30/19 13:50 DC 08/30/19 08:37 Tamsulosin HCl (Flomax) 0.8 mg DAILY PO 08/31/19 09:00 08/31/19 14:56 DC 08/31/19 09:10 Tramadol HCl (Ultram) 25 mg Q4HP PRN PO MODERATE PAIN (PS 5-7) 08/30/19 17:45 08/31/19 11:11 RONNIE NICHOLS MD Sep 05, 2019 16:15
[2019-09-05] MEDS ORDERED: SOD POLYSTYRENE SULFONATE SUSP 15 GM/60 ML UD PO ONE (16:30)
[2019-09-05 20:00] VITALS: BP_SYST 108; BP_SYST 118; BP_DIAS 51
[2019-09-05] MEDS: LEVEMIR (INSULIN DETEMIR) 1 UNITS/0.01ML SC SCH (21:21)
[2019-09-05] MEDS: ASPIRIN 81 MG CHEW TABLET PO SCH (21:21)
[2019-09-05] MEDS: ATORVASTATIN 10 MG TAB PO SCH (21:21)
[2019-09-05] MEDS: SENNA 8.6 MG TAB (SENOKOT) PO SCH (21:23)
[2019-09-06 06:00] VITALS: BP 113/55
[2019-09-06] MEDS: REMEDY PHYTOPLEX Z-GUARD PASTE 113GM TUBE (FROM STOREROOM PRODUCT) TOP SCH ×2 (06:01→12:10)
[2019-09-06] MEDS: IPRATROPIUM 0.5MG/ALBUTEROL 2.5MG INH SOL UD 3ML (DUONEB) NEB SCH ×2 (07:15→13:49)
[2019-09-06 07:50] LABS: CALCIUM LEVEL 8.4 MG/DL (8.8-10.2); CREATININE FOR GFR 1.63 MG/DL (0.70-1.30); POTASSIUM SERUM 5.5 MEQ/L (3.5-5.1)
[2019-09-06] MEDS: GABAPENTIN 300 MG CAP PO SCH (07:51)
[2019-09-06] MEDS: MAGNESIUM OXIDE 400 MG TAB (MAG-OX) PO SCH (07:52)
[2019-09-06] MEDS: HEPARIN SOD (PORCINE) 5000UNITS/ML VIAL (J1644 PER 1000UNITS) SC SCH (07:52)
[2019-09-06] MEDS: LACTOBACILLUS ACIDOPHILUS CAP (BACID) PO SCH (07:52)
[2019-09-06] MEDS: OCUVITE 1 TAB PO SCH (07:53)
[2019-09-06] MEDS: PENTOXIFYLLINE 400 MG TAB PO SCH (07:53)
[2019-09-06] MEDS: predniSONE 2.5 MG TAB PO SCH (07:53)
[2019-09-06] MEDS: FAMOTIDINE 20 MG TAB PO SCH (07:53)
[2019-09-06] MEDS: ASCORBIC ACID 500 MG TAB PO SCH (07:53)
[2019-09-06] MEDS: CYANOCOBALAMIN 500 MCG TAB PO SCH (07:54)
[2019-09-06] MEDS: FERROUS SULFATE 325MG TAB PO SCH (07:54)
[2019-09-06] MEDS: DOCUSATE SODIUM 100 MG CAP PO SCH (07:54)
[2019-09-06] MEDS: TAMSULOSIN 0.4 MG CAP PO SCH (07:54)
[2019-09-06] MEDS: ACETAMINOPHEN 500 MG TAB PO SCH (07:56)
[2019-09-06] MEDS: oxyCODONE 5MG TAB PO PRN (07:56)
[2019-09-06] MEDS: POLYVINYL ALCOHOL OPHTH SOLN 15 ML(LIQUITEARS) OU SCH (07:57)
[2019-09-06] MEDS: VANICREAM MOISTURIZING SKIN CREAM 113GM TUBE TOP SCH (07:57)
[2019-09-06] MEDS: amLODIPine 5 MG TAB PO SCH (07:58)
[2019-09-06] MEDS: FUROSEMIDE 40 MG TAB PO SCH (07:58)
[2019-09-06] MEDS: LISINOPRIL *2.5 MG* TAB PO SCH (07:58)
[2019-09-06] MEDS: HumaLOG INSULIN (NovoLOG) PER UNIT SC SCH ×2 (07:59→12:09)
[2019-09-06 08:04] VITALS: BP 108/54
[2019-09-06] MEDS: atenoloL 25 MG TAB PO SCH (08:04)
[2019-09-06] MEDS ORDERED: NS 500 ML IV ONE (11:15)
[2019-09-06] MEDS ORDERED: PATIROMER SORBITEX CALCIUM 8.4 GM POWDER PACKET (VELTASSA) PO ONE (12:00)
[2019-09-06] MEDS ORDERED: SOD POLYSTYRENE SULFONATE SUSP 15 GM/60 ML UD PO ONE (12:00)
[2019-09-06 14:00] VITALS: BP 109/55
[2019-09-06 14:49] LABS: CALCIUM LEVEL 9.1 MG/DL (8.8-10.2); CREATININE FOR GFR 1.72 MG/DL (0.70-1.30); GLOMERULAR FILTRATION RATE 40.4 (>35); POTASSIUM SERUM 4.7 MEQ/L (3.5-5.1)
[2019-09-06] MEDS ORDERED: LevoFLOXacin 500 MG TABLET PO ONE (15:15)
[2019-09-06] MEDS ORDERED: LINEZOLID 600MG TABLET (ZYVOX) PO SCH (15:15)
[2019-09-06] MEDS ORDERED: FAMO20TA PO (15:25)
[2019-09-06] MEDS ORDERED: ASCO50TA PO (15:25)
[2019-09-06] MEDS ORDERED: RISATAB3 PO (15:25)
[2019-09-06] MEDS ORDERED: ASPI81CH8 PO (15:25)
[2019-09-06] MEDS ORDERED: FERR325T18 PO (15:25)
[2019-09-06] MEDS ORDERED: MAG400TA PO (15:25)
[2019-09-06] MEDS ORDERED: FURO20TA2 PO (15:25)
[2019-09-06] MEDS ORDERED: PENT400T47 PO (15:25)
[2019-09-06] MEDS ORDERED: NOVOINJ3 SC (15:25)
[2019-09-06] MEDS ORDERED: PRED25TA PO (15:25)
[2019-09-06] MEDS ORDERED: ATEN25TA PO (15:25)
[2019-09-06] MEDS ORDERED: LEVA1TAB2 PO (15:25)
[2019-09-06] MEDS ORDERED: OXYC-517 PO (15:25)
[2019-09-06] MEDS ORDERED: LINE1TAB6 PO (15:25)
[2019-09-06] MEDS ORDERED: GABA-843 PO (15:25)
[2019-09-06] MEDS ORDERED: ATOR1TAB19 PO (15:25)
[2019-09-06] MEDS ORDERED: AMLO5TAB6 PO (15:25)
[2019-09-06] MEDS ORDERED: SANT250O8 TOP (15:25)
[2019-09-06] MEDS ORDERED: LANTINJ4 SC (15:25)
--- NOTE | 2019-09-06 18:21 | IPN ---
DATE: 09/06/2019 Asked to consult by Dr. Bonner for evaluation of diabetic foot ulcer with abscess of the left foot. HISTORY OF PRESENT ILLNESS: Mr. Urias an 84-year-old gentleman with diabetes, type 2, status post bilateral transmetatarsal amputation. The patient was admitted to [facility] on August 23 with a fever and worsening infection. He was followed up by Dr. Smalls. On admission his temperature was 100.6. He had debridement of the foot done on August 22 and was started on intravenous (IV) vancomycin and cefepime for 1 day. Then he was switched to meropenem. The patient was transferred to acute rehabilitation on August 25 and received 1 week of Keflex that was discontinued on August 31. His white count remained around 15,000. The patient was scheduled for discharge today. His wound culture from August had Escherichia (E) coli, Enterobacter cloacae, Enterococcus (E) faecalis, Enterococcus avium, anaerobic cocci. Blood cultures from August 22, two sets, were negative. PAST MEDICAL HISTORY: Significant for: 1. Diabetes mellitus type 2. 2. Gastroesophageal reflux disease. 3. Osteomyelitis of both feet, status post transmetatarsal amputation, done in [place]. 4. Hypertension. 5. Obstructive sleep apnea. 6. Congestive heart failure. 7. Peripheral vascular disease. 8. Hyperlipidemia. 9. Osteoarthritis. 10. Anemia of chronic disease. 11. Tenia pedis. PAST SURGICAL HISTORY: 1. Cholecystectomy. 2. Left knee surgery. 3. Skin biopsy. 4. Left shoulder tendon repair. 5. Transmetatarsal amputation of both feet. SOCIAL HISTORY: Lives his and second heart in [place]. He does not smoke or drink. REVIEW OF SYSTEMS: He has no nausea, vomiting, or diarrhea. No abdominal pain. No fever or chills. He does complain of some pain in his foot and difficulty with balance due to transmetatarsal amputation. ALLERGIES: PENICILLIN and ERYTHROMYCIN. MEDICATIONS: - furosemide 20 mg by mouth daily - famotidine 20 mg by mouth twice a day - insulin Levemir 34 units subcutaneous at bedtime - Flomax 0.4 mg by mouth daily - amlodipine 5 mg by mouth daily - ascorbic acid 500 mg by mouth daily - multivitamin one tablet by mouth daily - vitamin B12 at 1000 mcg by mouth daily - ferrous sulfate 325 mg by mouth twice a day - Vanicream twice a day to both legs - docusate 100 mg by mouth twice a day - Senokot one tablet by mouth at bedtime - Tylenol as needed - atorvastatin 10 mg by mouth at bedtime - gabapentin 300 mg by mouth three times a day - insulin sliding scale - probiotics one tablet by mouth three times a day - prednisone 2.5 mg by mouth twice a day - Trental 400 mg by mouth twice a day - collagenase applied to left foot ulcer - oxycodone as needed for pain - Keflex was given from August 24 and discontinued on August 31. LABORATORY DATA: White count 15.7, hemoglobin 8.2, hematocrit 26.6, platelets 417, 82% neutrophils, 6% lymphocytes, 7% monocytes. Sodium 137, potassium 4.7, chloride 101, bicarbonate 28, BUN 34, creatinine 1.72, glucose 210, calcium 9.1. CRP 2.8, down from 18.2. Wound culture had E. coli, E. cloacae, sensitive to Levaquin, Enterococcus faecalis, sensitive to penicillin and linezolid, Enterococcus avium, and anaerobic cocci. Blood cultures, two sets, were negative. MRI of foot showed 4th and 5th metatarsal head edema, possibly osteomyelitis. Mild ill-defined fluid in the adjacent soft tissue and surrounding flexor tendons. PHYSICAL EXAMINATION: He is a healthy elderly gentleman in no acute distress. Temperature is 97.2, pulse 96, respirations 18, blood pressure 109/55, oxygen saturation 96% on room air. HEART: Normal S1, S2. No murmurs appreciated or rubs or gallops. LUNGS: Clear. No wheezes, rales, or rhonchi. ABDOMEN: Obese, soft, nontender. No hepatosplenomegaly. Bowel sounds normal throughout. EXTREMITIES: No clubbing, cyanosis, or edema. Dry bilateral transmetatarsal amputation. Right foot has two ulcers, one on the heel, measuring about 4 x 3 cm with clean granulation tissue. Another one along the medial aspect of the foot, measuring 2 x 2 cm. Left foot transmetatarsal amputation with a necrotic eschar over the 4th and 5th metatarsal, extending to the foot, measuring about 5 x 5 cm. Foul-smelling drainage. tissue. There is pain along the plantar aspect of the foot around the mid foot area. After debridement, there was purulent discharge that could be expressed by Dr. Slim, who did an incision and drainage (I and D) at the bedside. Dorsalis pedis pulses are difficult to obtain. IMPRESSION: This is an 84-year-old gentleman who was admitted with a diabetic foot ulcer with an abscess, polymicrobial infection, and gangrene of the foot, status post bedside debridement twice. Wound culture had polymicrobial lalo. The patient's antibiotics were discontinued on August 31, but the patient has persistent infection. PLAN To cover all those pathogens, I have decided to start him back on levofloxacin to cover gram negatives and linezolid to cover for the enterococcus and anaerobic cocci. The patient will continue with antibiotics for at least 2 weeks and possibly longer, depending on clinical improvement. Will monitor complete blood count (CBC), comprehensive metabolic panel (CMP), C-reactive protein (CRP) weekly by nursing. He will have public health nursing to do his dressing changes three times a week, and Dr. Soriano will follow for further debridement weekly. He will followup in my office in 1 week MTDD
--- NOTE | 2019-09-06 18:26 | IPN ---
DATE: 09/06/2019 At approximately 3 p.m. CHIEF COMPLAINT: Patient seen at bedtime for evaluation of his ulceration on the left foot. The right foot ulcerations are improving and show good granulation tissue; however, the left foot displays some necrotic ulceration on the distal lateral stump site as well as tenderness along the distal plantar foot. Informed consent was obtained, and after appropriate time-out, utilizing a 15 blade the necrotic tissue was excised. Predebridement, size of the ulceration is 4 cm from medial to lateral and 6.5 cm from dorsal to plantar. After incisional debridement of the necrotic tissue along the distal aspect of the wound, there was an area that noticed to tunnel in a proximal direction 3 cm toward the medial plantar foot. This was probed with a sterile applicator, and an incision was made over this area, measuring 3 cm. Purulent abscess formation was seen and was expressed. Utilizing 500 mL of normal saline, the entire area was lavaged. No more area of abscess or necrotic tissue was identified. The wound was packed with Drawtex, which was cut to form the wound, and it was placed 3 cm into this undermined/incised area and over the distal wound, followed by 4 x [address] Hough will be covering his infection. Patient has a followup appointment with Dr. Soriano at the wound center. He can be seen in my office in 1 week on discharge. His questions were answered.
[2019-09-06] MEDS ORDERED: FAMOTIDINE 20 MG TAB PO SCH (21:00)
[2019-09-07] MEDS ORDERED: FUROSEMIDE 20 MG TAB PO SCH (09:00)
--- NOTE | 2019-09-22 06:44 | PMRDS ---
DATE OF ADMISSION: 08/25/2019 DATE OF DISCHARGE: 09/06/2019 CHIEF COMPLAINT/DISCHARGE DIAGNOSIS: Left foot cellulitis in the setting of diabetic peripheral polyneuropathy. 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 Foot MRI showed, soft tissue wound involving the skin with apparent ulceration laterally at the distal aspect of the remaining foot. Very mild edema is seen in the distal end of the remaining 4th and 5th metatarsal shaftscannot exclude mild osteomyelitis at those locations. He was started on Iv antibiotics and then transitioned to oral antibiotics following bedside debridement of his left foot by podiatry on 08-25-19. He was found to have new impairments in mobility and ADLs and deemed medically appropriate for discharge to ARU on 08-25-19. PAST MEDICAL HISTORY: As per history of present illness (HPI). HOSPITAL COURSE: Patient was admitted and enrolled in a comprehensive physical therapy (PT), occupational therapy (OT) program. He received 24-hour nursing supervision, and weekly team meetings were held to discuss his progress. For his history of chronic diastolic congestive heart failure (CHF), he was maintained on a fluid restriction, Lasix, and daily weights. He had elevated blood pressures, for which amlodipine was added, and he was maintained on Levemir and insulin sliding scale for his peripheral polyneuropathy. He was started on oral iron for his anemia of chronic disease and fecal occult blood test (FOBT) was negative. His pain was treated with Tylenol and oxycodone. He had daily wound care changes, and his wound dressing was changed from Silvadene to Santyl due to left mid foot necrotic tissue. He underwent a bedside debridement performed by Dr. Smalls on day of discharge and was scheduled for close followup with podiatry and wound care. Patient, unfortunately, had neurogenic bladder during his hospital course, did not respond to Flomax, and had no urge to urinate. He was deemed to most likely have diabetic peripheral polyneuropathy causing urinary retention and neurogenic bladder, and Irvin was placed on 08/31/2019. Patient was also referred to urology on discharge. DISCHARGE MEDICATIONS: As per instructions. FUNCTIONAL HISTORY ON DISCHARGE: Patient was contact guard for functional transfers and for stand pivots.
== END 2019-09-06 16:45 | disposition home health service (06) | DRG 300 ==
LOC: M PM&R 15:50
PROVIDERS: ADMIT Physical Medicine & Rehabilitation; ATTEND Physical Medicine & Rehabilitation
PROC: 0HBNXZZ Excision of Left Foot Skin, External Approach (ICD-10-PCS; principal; 2019-09-06)
DX: E11.52 Type 2 diabetes mellitus with diabetic peripheral angiopathy with gangrene (principal); I50.32 Chronic diastolic (congestive) heart failure; I35.0 Nonrheumatic aortic (valve) stenosis; G47.33 Obstructive sleep apnea (adult) (pediatric); D63.8 Anemia in other chronic diseases classified elsewhere; Z79.82 Long term (current) use of aspirin; Z88.0 Allergy status to penicillin; Z88.1 Allergy status to other antibiotic agents; Z79.899 Other long term (current) drug therapy; I70.25 Atherosclerosis of native arteries of other extremities with ulceration; E11.621 Type 2 diabetes mellitus with foot ulcer; I11.0 Hypertensive heart disease with heart failure; E78.5 Hyperlipidemia, unspecified; K21.9 Gastro-esophageal reflux disease without esophagitis; M19.90 Unspecified osteoarthritis, unspecified site; Z79.4 Long term (current) use of insulin; L97.529 Non-pressure chronic ulcer of other part of left foot with unspecified severity

== ENCOUNTER → 2019-09-08 | Outpatient (REF) | payer MEDICARE, OTHER ==
[~2019-09-08] MED LIST changes: +AMLO5TAB6 PO; +ASCO50TA PO; +ASPI81CH8 PO; +FAMO20TA PO; +FERR325T18 PO; +LINE1TAB6 PO; +MAG400TA PO; +OXYC-517 PO; +PENT400T47 PO; +RISATAB3 PO
== END ==
LOC: M LAB REF 13:02
PROVIDERS: ATTEND Surgery
DX: L97.529 Non-pressure chronic ulcer of other part of left foot with unspecified severity (principal)

== ENCOUNTER → 2019-09-12 | Outpatient (REF) | payer MEDICARE, BC, OTHER ==
[~2019-09-12] MED LIST changes: +AMLO1TAB24 PO; -AMLO5TAB6 PO; +ASPI-546 PO; -ASPI1TAB15 PO; -VITA1TAB23 PO; +VITA250T20 PO
[2019-09-12 18:55] LABS: HEMATOCRIT 26.8 % (42.0-52.0); HEMOGLOBIN 8.5 g/dl (13.5-17.5); MEAN CORPUSCULAR HEMOGLOBIN 29.7 pg (27.0-33.0); MEAN CORPUSCULAR HGB CONC 31.7 g/dl (32.0-36.5); MEAN CORPUSCULAR VOLUME 93.7 fl (80.0-96.0); PLATELET COUNT, AUTOMATED 353 10^3/uL (150-450); RED BLOOD COUNT 2.86 10^6/uL (4.30-6.10); WHITE BLOOD COUNT 12.8 10^3/uL (4.0-10.0)
[2019-09-12 19:20] LABS: ALBUMIN 2.8 GM/DL (3.2-5.2); BILIRUBIN,TOTAL 0.3 MG/DL (0.2-1.0); C REACTIVE PROTEIN QUANTITATIV 1.88 MG/DL (0.00-0.30); CALCIUM LEVEL 8.8 MG/DL (8.8-10.2); CREATININE FOR GFR 1.67 MG/DL (0.70-1.30); GLOMERULAR FILTRATION RATE 41.8 (>35); POTASSIUM SERUM 4.7 MEQ/L (3.5-5.1); TOTAL PROTEIN 6.6 GM/DL (6.4-8.2)
== END ==
LOC: M LAB REF 16:54
PROVIDERS: ATTEND Internal Medicine Infectious Disease
DX: M86.9 Osteomyelitis, unspecified (principal)
CPT/HCPCS: 80053; 85027; 86140; G0463

== ENCOUNTER → 2019-09-13 | Outpatient (POV) | payer MEDICARE, BC, OTHER ==
[~2019-09-13] MED LIST changes: -AMLO1TAB24 PO; +AMLO5TAB6 PO; -ASPI-546 PO; +ASPI1TAB15 PO; +VITA1TAB23 PO; -VITA250T20 PO
--- NOTE | 2019-09-14 13:44 | IRCOV ---
[facility] IR Consult Office Visit IR Consult Office Visit DATE: Sep 13, 2019 Consent was obtained from the patient for this telephone call. Duration of call was 15 minutes. Physical examination was performed the day after this consultation and is included in this note. REASON FOR CONSULTATION/CHIEF COMPLAINT: Nonhealing left lower extremity wound. Pain. HISTORY OF PRESENT ILLNESS: 84-year-old male with diabetes, hypertension, hyperlipidemia, congestive heart failure and peripheral arterial disease presents with nonhealing left lower extremity wounds. Patient is status post remote, transmetatarsal amputations bilaterally. Patient complains of pain at rest in the left lower extremity which keeps him up at night. Patient is currently under the care of wound care for nonhealing left lower extremity wounds. This involves the transmetatarsal amputation site. He recently suffered a left diabetic foot infection which became exacerbated and he developed ischemic necrosis with abscess formation. This was treated with incision and drainage 2 by podiatry. He is referred by wound care for arterial evaluation. Patient denies chest pain, shortness of breath, orthopnea or paroxysmal nocturnal dyspnea. ALLERGIES: Please see below. HOME MEDICATIONS: Please see below. PAST MEDICAL HISTORY: Diabetes Gastroesophageal reflux disease Left shoulder tendon rupture Hypertension Obstructive sleep apnea Hyperlipidemia Congestive heart failure PAD Osteoarthritis Anemia PAST SURGICAL HISTORY: Bilateral transmetatarsal amputations Cholecystectomy Left knee surgery Skin biopsy of the shoulder FAMILY HISTORY: Noncontributory SOCIAL HISTORY: Nonsmoker. No alcohol or drugs. REVIEW OF SYSTEMS: Otherwise negative. PHYSICAL EXAMINATION performed 09/14/2019: GENERAL APPEARANCE: Appears well. Comfortable at rest. HEENT: No scleral icterus. RESPIRATORY: Normal breathing at rest. CARDIOVASCULAR: Bradycardia. ABDOMEN: Non-distended. EXTREMITIES: Left lower extremity: Transmetatarsal amputation. Vertical surgical scar along medial lower leg. Skin warm to touch, dry and flaky. Edema ++. Nonhealing wounds over transmetatarsal site. Femoral pulse 2+ popliteal pulse 2+ DP/PT negative on palpation. Present on Doppler. Right lower extremity: Transmetatarsal amputation. Vertical surgical scar along medial lower leg. Skin warm to touch, dry and flaky. Edema ++. Femoral pulse 2+ popliteal pulse 2+ dorsalis pedis 1+ PT negative to palpation. present on Doppler. NEUROLOGICAL: Alert and oriented. PSYCHIATRIC: Appropriate to circumstance. LABORATORY DATA: 09/12/2019 hemoglobin 8.5 hematocrit 26.8 WBC 12.8 platelets 353 sodium 132 potassium 4.7 BUN 32 creatinine 1.67 GFR 41.8 hemoglobin A1c 7.4 and LDL 138 in February 2019 Imaging: No recent arterial imaging of the lower extremities. ASSESSMENT/PLAN: 84-year-old diabetic male with bilateral lower extremity transmetatarsal amputations and nonhealing chronic left lower extremity wounds. I agree patient would benefit from left lower extremity angiography and/or intervention in the same session if possible. We discussed the risks and benefits of the procedure and patient would like to proceed. We will schedule the patient for the procedure. I spent 15 minutes in consultation with the patient. Thank you for this referral. Cc Dr. Soriano Allergies Coded Allergies: Penicillins (Verified Allergy, Severe, ANAPHYLAXIS, 08/23/19) erythromycin base (Verified Allergy, Severe, ANAPHYLAXIS, 08/23/19) Home Medications Scheduled Amlodipine Besylate (Amlodipine Besylate), 5 MG PO DAILY Ascorbic Acid (Vitamin C), 500 MG PO DAILY, (Reported) Aspirin (Children's Aspirin), 81 MG PO QHS Atenolol (Atenolol), 25 MG PO BID Atorvastatin Calcium (Atorvastatin Calcium), 10 MG PO QHS Calcium Carbonate/Vitamin D3 (Calcium 600-Vit D3 400 Tablet), 1 TAB PO DAILY, (Reported) Carboxymethylcellulose Sodium (Refresh Tears), 1 DROP OU BID, (Reported) Collagenase Clostridium Hist. (Santyl), 0 DOSE TOP ASDIRECTED Cyanocobalamin (Vitamin B-12) (Vitamin B-12), 2,500 MCG SL Q2D, (Reported) Ergocalciferol (Vitamin D2) (Vitamin D2), 50,000 UNITS PO Q2WK, (Reported) Famotidine (Famotidine), 20 MG PO BID Ferrous Sulfate (Ferrous Sulfate), 325 MG PO BID Furosemide (Furosemide), 20 MG PO DAILY Gabapentin (Gabapentin), 300 MG PO TID Insulin Aspart (Novolog Flexpen), 1 DOSE SC AC Insulin Glargine,Hum.rec.anlog (Lantus Solostar), 30 UNITS SC QHS L.acidoph/L.bulg/B.bif/S.therm (Damaris-Bid Caplet), 1 EA PO TID Levofloxacin (Levaquin), 250 MG PO DAILY Linezolid (Linezolid), 1 TAB PO BID Magnesium Oxide (Magnesium Oxide), 400 MG PO BID Pentoxifylline (Pentoxifylline), 400 MG PO BID@18 Prednisone (Prednisone), 2.5 MG PO BID Vit A/Vit C/Vit E/Zinc/Copper (Preservision Areds Tablet), 1 TAB PO DAILY, (Reported) Vitamin E (Vitamin E), 400 UNIT PO DAILY, (Reported) Scheduled PRN Baclofen (Baclofen), 5 MG PO TID PRN for MUSCLE SPASMS, (Reported) Oxycodone HCl (Oxycodone HCl), 5 MG PO Q4HP PRN for PAIN Discontinued Medications Ascorbic Acid (Vitamin C), 500 MG PO DAILY Discontinued Reason: Pt states not taking Aspirin (Aspirin EC), 81 MG PO QHS, (Reported) Discontinued Reason: Pt states not taking Atenolol (Atenolol), 25 MG PO BID, (Reported) Discontinued Reason: Pt states not taking Atorvastatin Calcium (Atorvastatin Calcium), 10 MG PO QHS, (Reported) Discontinued Reason: Pt states not taking Magnesium Oxide (Magnesium Oxide), 400 MG PO BID, (Reported) Discontinued Reason: Pt states not taking Pentoxifylline (Pentoxifylline), 400 MG PO BID, (Reported) Discontinued Reason: Pt states not taking Prednisone (Prednisone), 2.5 MG PO BID, (Reported) Discontinued Reason: Pt states not taking SOL ORNELAS MD Sep 14, 2019 13:44
== END ==
LOC: M TMIRPOV 11:19
PROVIDERS: ATTEND Radiology Diagnostic Radiology
DX: I70.245 Atherosclerosis of native arteries of left leg with ulceration of other part of foot (principal); E11.51 Type 2 diabetes mellitus with diabetic peripheral angiopathy without gangrene; E11.621 Type 2 diabetes mellitus with foot ulcer; I10 Essential (primary) hypertension; E78.5 Hyperlipidemia, unspecified; I50.9 Heart failure, unspecified; K21.9 Gastro-esophageal reflux disease without esophagitis; G47.33 Obstructive sleep apnea (adult) (pediatric); M19.90 Unspecified osteoarthritis, unspecified site; Z79.4 Long term (current) use of insulin; Z79.82 Long term (current) use of aspirin; Z79.899 Other long term (current) drug therapy; Z88.0 Allergy status to penicillin; Z88.1 Allergy status to other antibiotic agents; Z89.421 Acquired absence of other right toe(s); Z89.422 Acquired absence of other left toe(s)

== ENCOUNTER → 2019-09-14 | Outpatient (CLI) | payer MEDICARE, BC, OTHER ==
[~2019-09-14] MED LIST changes: +ACETAMINOPHEN *IV* 1,000 MG IV ONE; +ISOVUE-300 61% 50ML VIAL As Ordered ONE; +LIDOCAINE 1% MDV 20ML VIAL As Ordered ONE; +MIDAZOLAM INJ 2MG/2ML VIAL (J2250 PER 1MG) As Ordered ONE; +PROMETHAZINE INJ 25 MG/ML VIAL (J2550) As Ordered ONE; +diphenhydrAMINE 50MG/ML VIAL (J1200) As Ordered ONE; +fentaNYL 100 MCG/2 ML INJECTION (J3010) As Ordered ONE
--- NOTE | 2019-09-14 08:29 | IRHP ---
[facility] IR Pre-Procedure H & P General Date of Service: Sep 14, 2019 Procedure: Same Day Surgery Interval History and Physical I have seen the patient and reviewed last H & P performed within 30 days. There is no significant interval change. History of Present Illness Chief Complaint The patient is a 84-year-old male admitted with a reason for visit of Non Healing Wound. PRE-PROCEDURE DIAGNOSIS: CLI HEART: normal rate. LUNGS: normal breathing at rest. ASA Classification ASA Classification: III-Severe systemic dis. Mallampati Score: II NPO: Yes Problems with prior sedation: No Obstructive Sleep Apnea: No Plan moderate sedation Allergies Coded Allergies: Penicillins (Verified Allergy, Severe, ANAPHYLAXIS, 08/23/19) erythromycin base (Verified Allergy, Severe, ANAPHYLAXIS, 08/23/19) Home Medications Scheduled Amlodipine Besylate (Amlodipine Besylate), 5 MG PO DAILY Ascorbic Acid (Vitamin C), 500 MG PO DAILY, (Reported) Aspirin (Children's Aspirin), 81 MG PO QHS Atenolol (Atenolol), 25 MG PO BID Atorvastatin Calcium (Atorvastatin Calcium), 10 MG PO QHS Calcium Carbonate/Vitamin D3 (Calcium 600-Vit D3 400 Tablet), 1 TAB PO DAILY, (Reported) Carboxymethylcellulose Sodium (Refresh Tears), 1 DROP OU BID, (Reported) Collagenase Clostridium Hist. (Santyl), 0 DOSE TOP ASDIRECTED Cyanocobalamin (Vitamin B-12) (Vitamin B-12), 2,500 MCG SL Q2D, (Reported) Ergocalciferol (Vitamin D2) (Vitamin D2), 50,000 UNITS PO Q2WK, (Reported) Famotidine (Famotidine), 20 MG PO BID Ferrous Sulfate (Ferrous Sulfate), 325 MG PO BID Furosemide (Furosemide), 20 MG PO DAILY Gabapentin (Gabapentin), 300 MG PO TID Insulin Aspart (Novolog Flexpen), 1 DOSE SC AC Insulin Glargine,Hum.rec.anlog (Lantus Solostar), 30 UNITS SC QHS L.acidoph/L.bulg/B.bif/S.therm (Damaris-Bid Caplet), 1 EA PO TID Levofloxacin (Levaquin), 250 MG PO DAILY Linezolid (Linezolid), 1 TAB PO BID Magnesium Oxide (Magnesium Oxide), 400 MG PO BID Pentoxifylline (Pentoxifylline), 400 MG PO BID@ Prednisone (Prednisone), 2.5 MG PO BID Vit A/Vit C/Vit E/Zinc/Copper (Preservision Areds Tablet), 1 TAB PO DAILY, (Reported) Vitamin E (Vitamin E), 400 UNIT PO DAILY, (Reported) Scheduled PRN Baclofen (Baclofen), 5 MG PO TID PRN for MUSCLE SPASMS, (Reported) Oxycodone HCl (Oxycodone HCl), 5 MG PO Q4HP PRN for PAIN Discontinued Medications Ascorbic Acid (Vitamin C), 500 MG PO DAILY Discontinued Reason: Pt states not taking Aspirin (Aspirin EC), 81 MG PO QHS, (Reported) Discontinued Reason: Pt states not taking Atenolol (Atenolol), 25 MG PO BID, (Reported) Discontinued Reason: Pt states not taking Atorvastatin Calcium (Atorvastatin Calcium), 10 MG PO QHS, (Reported) Discontinued Reason: Pt states not taking Magnesium Oxide (Magnesium Oxide), 400 MG PO BID, (Reported) Discontinued Reason: Pt states not taking Pentoxifylline (Pentoxifylline), 400 MG PO BID, (Reported) Discontinued Reason: Pt states not taking Prednisone (Prednisone), 2.5 MG PO BID, (Reported) Discontinued Reason: Pt states not taking VS, I&O, 24H, Fishbone Vital Signs/I&O Vital Signs Date Time Temp Pulse Resp B/P (MAP) Pulse Ox O2 Delivery O2 Flow Rate FiO2 09/14/19 07:55 97.3 71 12 96 Room Air SOL ORNELAS MD Sep 14, 2019 08:29
[2019-09-14 14:45] VITALS: BP 117/56
--- NOTE | 2019-09-15 07:33 | POST-OPPD ---
Postoperative Procedure Note Date Of Procedure: Sep 14, 2019 Time Of Procedure: 11:19 PREOPERATIVE DIAGNOSIS: left lower extremity non healing wound POSTOPERATIVE DIAGNOSIS: same FINDINGS: bulky calcification and stenosis in the left common femoral artery. Patent SFA, profunda, popliteal artery and patent proximal anterior tibial and tibioperoneal trunk. No bypass noted. No dedicated run off to the foot. Heavily calcified and chronically occluded peroneal and anterior tibial arteries, not amenable to percutaneous recanalization. If need arises, patient should heal from a below knee amputation. PROCEDURE: left leg angiography. SURGEON: Sotero ANESTHESIA: mod sed ESTIMATED BLOOD LOSS: < 5 ml COMPLICATIONS: none POSTOPERATIVE CONDITION: stable SOL ORNELAS MD Sep 15, 2019 07:33
--- NOTE | 2019-09-15 11:24 | REP ---
IR Left leg angiogram. IR Selective left iliac artery catheterization. IR Selective left common femoral artery catheterization. IR Ultrasound guided left common femoral artery access. IR Moderate sedation. Clinical Information: Non healing wounds on left transmetatarsal amputation site status post multiple debridement. Physician: Dr Bey.Procedure: The patient was advised of the benefits, risks, and alternatives of the procedure and informed consent was obtained.A time out was performed with verification of the patient's name, MRN, site of procedure, and type of procedure to be performed. The patient was positioned in the supine position on the angiographic table. The site was prepped and draped in the usual sterile fashion.Moderate sedation was performed by the physician including the presence of an independent trained observer who assisted in monitoring the patient's level of consciousness and physiological status. Following the administration of Fentanyl and Versed, the physician spent 60 minutes of continuous [id number] time with the patient. A non clinical advisor radiograph reveals calcified vasculature. Ultrasound of the right groin demonstrates a patent and pulsatile right common femoral artery. The right common femoral artery was accessed with a micropuncture kit, under ultrasound guidance. A EZBOB wire was advanced into the aorta. The micropuncture sheath was exchanged over the wire for a a 6-Israeli vascular sheath. A flush catheter was advanced over the wire and used to catheterize the abdominal aorta. A pelvic arteriogram was performed. This demonstrates unremarkable infrarenal abdominal aorta. Patent bilateral common iliac arteries. Patent bilateral external iliac arteries. There is bulky atherosclerotic calcification in the left greater than right common femoral arteries, almost completely occluding the intraluminal space. There is flow beyond this. A Glidewire was advanced through the flush catheter and under fluoroscopy guidance was used to gain up and over access into the left common iliac artery. The flush catheter was exchanged over the wire for a glide cath. The glide cath in conjunction with a Glidewire was used to catheterize the left common femoral artery. Angiography further down the left leg was then performed and this demonstrates patent superficial femoral artery and popliteal artery. Below-knee runoff arteriogram was performed and this demonstrates patent proximal anterior tibial artery and tibioperoneal trunk with complete occlusion of the mid and distal runoff vessels. No runoff vessels to the left foot. The foot is supplied entirely by tiny fail collateral vasculature. A Glidewire was advanced through the glide cath under fluoroscopy guidance and in conjunction with the glide cath was used to catheterize the superficial femoral artery and popliteal artery. Intermittent injection of contrast confirmed intraluminal location in the popliteal artery. A [place] catheter was then advanced over the wire under fluoroscopy guidance and positioned in the popliteal artery. The catheter in conjunction with a wire was used under fluoroscopy guidance to catheterize the proximal anterior tibial artery. The entire anterior tibial artery is heavily calcified. Despite multiple combinations of wires and catheters, successful recanalization of the mid and distal anterior tibial artery could not be achieved. Intermittent injection of contrast confirmed mild extravasation of contrast. The catheter was then retracted back to the popliteal artery. A wire was advanced through the catheter and under fluoroscopy guidance was used to catheterize the left tibioperoneal trunk. This vessel is also chronically occluded and heavily calcified. After making headway of 3 cm, no wire or catheter could be advanced further and injection of contrast confirmed extravasation and no real progress. A follow-up angiogram was performed and this demonstrates preserved patency of the catheterized SFA, popliteal artery, proximal anterior tibial and tibioperoneal trunk. The catheter and sheath were removed. A 6-Israeli Mynx device was used to close the groin arteriotomy and the sheath was removed. Hemostasis achieved. A sterile dressing was applied to the site. Patient tolerated the procedure well and was transferred to PRU in stable condition. Complications: None. Estimated blood loss: Less than 5 ml. Impression: 1. Left leg angiogram demonstrates bulky plaque in the left common femoral artery which is best served by endarterectomy in the future if needed. This area is not ideal for stenting. Patent superficial femoral artery, popliteal artery, proximal anterior tibial and tibioperoneal trunk. 2. Below-knee runoff arteriogram demonstrates NO dedicated runoff vessels to the left foot. The left foot is supplied solely by intricate collateral vasculature. 3. Should the need arise, and given these angiographic findings, a below-knee amputation should heal. Thank you for this referral. Cc Dr. Soriano Electronically Signed by Danette Bey MD 09/15/2019 11:23 A
== END ==
LOC: M IRPRO 07:44
PROVIDERS: ATTEND Radiology Diagnostic Radiology
DX: I70.245 Atherosclerosis of native arteries of left leg with ulceration of other part of foot (principal); L97.529 Non-pressure chronic ulcer of other part of left foot with unspecified severity; Z79.4 Long term (current) use of insulin; Z79.82 Long term (current) use of aspirin; Z79.899 Other long term (current) drug therapy; Z88.0 Allergy status to penicillin; Z88.1 Allergy status to other antibiotic agents; Z89.421 Acquired absence of other right toe(s); Z89.422 Acquired absence of other left toe(s)
CPT/HCPCS: 36246; 75710; 99152; 99153; C1760; C1769; C1887; C1894; J1644; J2250; J3010; Q9967